=== PATIENT | female | born 1930 | race Caucasian/White ===

== ENCOUNTER 2017-04-22 10:58 | Inpatient (IN) ==
[2017-04-22] MEDS ORDERED: VANCOMYCIN - PHARMACY CONSULT MC ONE (14:07)
--- OUTSIDE RECORDS SUMMARY | 2017-04-22 14:09 | External Medical Summary ---
:1930 Author Organization [facility] Care Team Providers Name Role Phone LINDA KNOWLES, MARLON Primary Care Provider [phone] Summary purpose CCDA Sent to [facility] Chief Complaint and Reason for Visit No authorized Reason for Visit (Admitting Diagnosis) is available for this visit. Problem list No authorized problems tracked for continuity of care are available for this visit. Encounters No authorized problems tracked for encounter diagnoses are available for this visit. Medications No medications recorded for this patient visit Allergies, adverse reactions, alerts Allergen Category Ingredient Status Reaction Severity Onset Levaquin Drug Levaquin Active "Can't remember" Adolescence Levaquin Drug Levaquin Active Unknown Alrgy React Adolescence Levaquin Drug levofloxacin Active "Can't remember" Adolescence Immunizations No immunizations recorded for this patient visit Relevant diagnostic tests and/or laboratory data RESULTS CBC [id number]:55:00 Result Normal Range Units WBC 6.25 4.60-10.20 x 103/uL RBC L 3.23 4.04-6.13 x 106/uL Hemoglobin L 10.2 12.2-18.1 g/dl Hematocrit L 34.6 37.7-53.7 % MCV H 107.1 80.0-97.0 FL MCH H 31.6 27.0-31.2 pg MCHC L 29.5 31.8-35.4 g/dl RDW 14.3 11.6-14.8 % Platelets 210 142-424 x 103/uL MPV L 9.3 9.4-12.4 FL Manual Diff Not Indicated Neutrophil % 60.9 37-80 % Neutrophils 3.81 2.0-6.9 x 103/uL Lymphocyte % 24.5 10-50 % Lymphocytes 1.53 0.6-3.4 x 103/uL Monocyte % 10.9 0-12 % Monocytes 0.68 0.0-1.0 x 103/uL Eosinophil % 3.2 0-7 % Eosinophils 0.20 0-0.7 x 103/uL Basophil % 0.5 0-2 % Basophils 0.03 0.0-0.1 x 103/uL Urinalysis [id number]:55:00 Result Normal Range Units Site Voided Urine Color Yellow Yellow Urine Appearance Clear Clear Urine Glucose Negative Negative Urine Bilirubin Negative Negative Urine Ketones Negative Negative Urine Specific [place] 1.010 1.010-1.020 Urine PH 5.5 5.5-7.5 Urine Protein AB Trace Negative Urine Urobilinogen 0.2 0.2-1.0 Urine Nitrites Negative Negative Urine Blood Negative Negative Urine Leukocytes Negative Negative NO MICROSCOPIS PERFORMED INADEQUATE SPECIMEN Urinalysis [id number]:00 Result Normal Range Units Site Voided Urine Color Yellow Yellow Urine Appearance Clear Clear Urine Glucose Negative Negative Urine Bilirubin Negative Negative Urine Ketones Negative Negative Urine Specific [place] 1.010 1.010-1.020 Urine PH 5.5 5.5-7.5 Urine Protein AB Trace Negative Urine Urobilinogen 0.2 0.2-1.0 Urine Nitrites Negative Negative Urine Blood Negative Negative Urine Leukocytes Negative Negative NO MICROSCOPIS PERFORMED INADEQUATE SPECIMEN History of procedures Procedure Code Code Type Description Date Performed Performing Physician 20991 CPT-4 COMPLETE CBC W/AUTO DIFF 07-31-2015 [facility] WBC 50245 CPT-4 URINALYSIS, AUTO 07-31-2015 MARLON EXPORT W/SCOPE 66751 CPT-4 X-RAY EXAM HIP UNI 2-3 07-31-2015 [facility] VIEWS 41753 CPT-4 X-RAY EXAM OF PELVIS 07-31-2015 [facility] 77299 CPT-4 ROUTINE VENIPUNCTURE 07-31-2015 [facility] Functional status No functional or cognitive status observations are available for this visit. Vital signs No authorized vital signs are available for this visit. Social history No Social History or smoking status observations were recorded for this visit. ( Unknown if ever smoked.) Treatment Plan No treatment plan text is available for this visit. Hospital discharge instructions No discharge instruction text is available for this visit.
--- OUTSIDE RECORDS SUMMARY | 2017-04-22 14:09 | External Medical Summary ---
:1930 Author Organization [facility] Care Team Providers Name Role Phone LINDA KNOWLES, MARLON Primary Care Provider [phone] Summary purpose CCDA Sent to [facility] Chief Complaint and Reason for Visit No authorized Reason for Visit (Admitting Diagnosis) is available for this visit. Problem list No authorized problems tracked for continuity of care are available for this visit. Encounters No authorized problems tracked for encounter diagnoses are available for this visit. Medications No home medications recorded for this patient visit Allergies, adverse reactions, alerts Allergen Category Ingredient Status Reaction Severity Onset Levaquin Drug Levaquin Active "Can't remember" Adolescence Levaquin Drug Levaquin Active Unknown Alrgy React Adolescence Levaquin Drug levofloxacin Active "Can't remember" Adolescence Immunizations No immunizations recorded for this patient visit Relevant diagnostic tests and/or laboratory data RESULTS [facility] [id number]:00 Result Normal Range Units Adenovirus Not Detected Not Detected Result Amended on 2015-02-09 at 12:24:18. Previous status was FR. Adeno2 Not Detected Not Detected Result Amended on 2015-02-09 at 12:24:18. Previous status was FR. Coronavirus 229E Not Detected Not Detected Result Amended on 2015-02-09 at 12:24:19. Previous status was FR. Coronavirus HKU1 Not Detected Not Detected Result Amended on 2015-02-09 at 12:24:19. Previous status was FR. Coronavirus NL63 Not Detected Not Detected Result Amended on 2015-02-09 at 12:24:19. Previous status was FR. Coronavirus OC43 Not Detected Not Detected Result Amended on 2015-02-09 at 12:24:19. Previous status was FR. Human Metapneumovir. Not Detected Not Detected Result Amended on 2015-02-09 at 12:24:19. Previous status was FR. Entero1 Not Detected Not Detected Result Amended on 2015-02-09 at 12:24:19. Previous status was FR. Entero2 Not Detected Not Detected Result Amended on 2015-02-09 at 12:24:19. Previous status was FR. Human Rhinovirus 1 Not Detected Not Detected Result Amended on 2015-02-09 at 12:24:19. Previous status was FR. Human Rhinovirus 2 Not Detected Not Detected Result Amended on 2015-02-09 at 12:24:19. Previous status was FR. Human Rhinovirus 3 Not Detected Not Detected Result Amended on 2015-02-09 at 12:24:19. Previous status was FR. Human Rhinovirus 4 Not Detected Not Detected Result Amended on 2015-02-09 at 12:24:19. Previous status was FR. DdmD-A4-1529 Not Detected Not Detected Result Amended on 2015-02-09 at 12:24:19. Previous status was FR. FluA-H1-freeman Not Detected Not Detected Result Amended on 2015-02-09 at 12:24:19. Previous status was FR. FluA-H3 Not Detected Not Detected Result Amended on 2015-02-09 at 12:24:19. Previous status was FR. FluA-pan1 Not Detected Not Detected Result Amended on 2015-02-09 at 12:24:19. Previous status was FR. FluA-pan2 Not Detected Not Detected Result Amended on 2015-02-09 at 12:24:19. Previous status was FR. Influenza B Not Detected Not Detected Result Amended on 2015-02-09 at 12:24:19. Previous status was FR. Parainfluenza Virus 1 Not Detected Not Detected Result Amended on 2015-02-09 at 12:24:19. Previous status was FR. Parainfluenza Virus 2 Not Detected Not Detected Result Amended on 2015-02-09 at 12:24:19. Previous status was FR. Parainfluenza Virus 3 Not Detected Not Detected Result Amended on 2015-02-09 at 12:24:19. Previous status was FR. Parainfluenza Virus 4 Not Detected Not Detected Result Amended on 2015-02-09 at 12:24:19. Previous status was FR. Respiratory Syncytial Vir Not Detected Not Detected Result Amended on 2015-02-09 at 12:24:19. Previous status was FR. Bordetella pertussis Not Detected Not Detected Result Amended on 2015-02-09 at 12:24:19. Previous status was FR. Chlamydophila pnemon Not Detected Not Detected Result Amended on 2015-02-09 at 12:24:19. Previous status was FR. Mycoplasma pneumoni Not Detected Not Detected Result Amended on 2015-02-09 at 12:24:19. Previous status was FR. Gram Positive Bacteria [id number]:49:00 Result Normal Range Units Entero1 Not Detected Not Detected Result Amended on 2015-02-09 at 12:24:19. Previous status was FR. History of procedures Procedure Code Code Type Description Date Performed Performing Physician 06911 CPT-4 DETECT AGENT NOS DNA 02-09-2015 [facility] [place] 05771 CPT-4 RESP VIRUS 04-0602-09-2015 [facility] TARGETS 71482 CPT-4 CHYLMD PNEUM DNA AMP 02-09-2015 [facility] PROBE 99337 CPT-4 M.PNEUMON DNA AMP 02-09-2015 [facility] PROBE 57904 CPT-4 SMEAR GRAM STAIN 02-09-2015 [facility] 20908 CPT-4 CULTURE OTHR SPECIMN 02-09-2015 [facility] AEROBIC Functional status No functional or cognitive status [...]
--- OUTSIDE RECORDS SUMMARY | 2017-04-22 14:09 | External Medical Summary ---
:1930 Author Organization [facility] Care Team Providers Name Role Phone LINDA KNOWLES, MARLON Primary Care Provider [phone] Summary purpose CCDA Sent to [facility] Chief Complaint and Reason for Visit No authorized Reason for Visit (Admitting Diagnosis) is available for this visit. Problem list No authorized problems tracked for continuity of care are available for this visit. Encounters No authorized problems tracked for encounter diagnoses are available for this visit. Medications Home Medications Medication Directions Started Status Source amlodipine 10 mg Tab 1 tablet Oral -Daily Current Aspirin Low Dose 81 mg Tab, 1 tablet Oral -Daily Current Delayed Release with evening meal levothyroxine 150 mcg Tab 1 tablet Oral -Daily Current metoprolol tartrate 50 mg Tab 1 tablet Oral 2 times per day Current multivitamin Tab 1 tablet Oral -Daily Current with evening meal pantoprazole 40 mg tablet,delayed 1 tablet oral At bed time Current release losartan 50 mg tablet 1 tablet oral -Daily Current niacin 500 mg tablet 1 tablet oral -Daily Current with evening meal after vitamin and aspirin oxybutynin chloride ER 5 mg 1 tablet oral -Daily Current tablet,extended release 24 hr venlafaxine 37.5 mg tablet 1 tablet oral -Daily Current Celebrex 200 mg capsule 1 tablet oral -Daily Current metFORMIN 500 mg tablet 1 tablet oral 2 times per day Current gabapentin 300 mg tablet 1 tablet oral 2 times per day Current ciprofloxacin 500 mg tablet 1 capsule oral 2 times per day for ANTIBIOTIC Current [facility] Symbicort 160 mcg-4.5 2 puff inhl 2 times per day Current mcg/actuation HFA aerosol inhaler Mucinex 600 mg tablet,extended 1 tablet oral 2 times per day Current release bi-layer DuoNeb 0.5 mg-3 mg(2.5 mg base)/3 1 inhalation inhl 4 times Current mL solution for nebulization daily Allergies, adverse reactions, alerts Allergen Category Ingredient Status Reaction Severity Onset Levaquin Drug Levaquin Active "Can't remember" Adolescence Levaquin Drug Levaquin Active Unknown Alrgy React Adolescence Levaquin Drug levofloxacin Active "Can't remember" Adolescence Immunizations No immunizations recorded for this patient visit Relevant diagnostic tests and/or laboratory data No authorized results are available for this patient visit History of procedures Procedure Code Code Type Description Date Performed Performing Physician 18174 CPT-4 EXC FACE-MM B9+MARIBEL 02-16-2015 MAR[place] 0.6-1 [place] [address] CPT-4 TISSUE EXAM BY 02-16-2015 MARLON LOPEZ PATHOLOGIST 57156 CPT-4 SMEAR GRAM STAIN 02-16-2015 MARLON LOPEZ 45534 CPT-4 CULTURE OTHR SPECIMN 02-16-2015 MARLON LOPEZ AEROBIC A9270 CPT-4 NON-COVERED ITEM OR 02-16-2015 MARLON LOPEZ SERVICE Functional status No functional or cognitive status observations are available for this visit. Vital signs Type Value Date Respirations 20 61-85-725510:24 Pulse 70 :24 O2 Saturation 98% 87-68-900813:55 Systolic Blood Press 119mm/HG 61-38-092621:24 Diastolic Blood Pres 63mm/HG 09-31-835455:24 Temperature (Fahr) 97.6Degrees 09-33-615922:55 Social history No Social History or smoking status observations were recorded for this visit. ( Unknown if ever smoked.) Treatment Plan Treatment Plan at Di follow wound care and follow up instructions on discharge instruction sheet Hospital discharge instructions Diagnosis excision of skin lesion from right side of face- sent to pathology Diet as tolerated Activity Level as tolerated Follow up with Dr Lopez Appointment Date and @2:30PM Wound Care keep incision clean and dry- do not scrub over sutures, use neosporin to incision daily, cool pack to incision intermittently today, watch for signs of infection such as apmafao-[id number] drainage and notify Dr of any problems
--- OUTSIDE RECORDS SUMMARY | 2017-04-22 14:09 | External Medical Summary ---
:1930 Author Organization [facility] Care Team Providers Name Role Phone LINDA KNOWLES, MARLON Primary Care Provider [phone] Summary purpose CCDA Sent to [facility] Chief Complaint and Reason for Visit No [...] diagnostic tests and/or laboratory data RESULTS CBC [id number]:37:00 Result Normal Range Units WBC 8.21 4.60-10.20 x 103/uL RBC L 3.44 4.04-6.13 x 106/uL Hemoglobin L 10.9 12.2-18.1 g/dl Hematocrit L 35.7 37.7-53.7 % MCV H 103.8 80.0-97.0 FL MCH H 31.7 27.0-31.2 pg MCHC L 30.5 31.8-35.4 g/dl RDW 13.4 11.6-14.8 % Platelets 216 142-424 x 103/uL MPV 9.6 9.4-12.4 FL Manual Diff Not Indicated Neutrophil % 60.9 37-80 % Neutrophils 4.99 2.0-6.9 x 103/uL Lymphocyte % 26.9 10-50 % Lymphocytes 2.21 0.6-3.4 x 103/uL Monocyte % 10.1 0-12 % Monocytes 0.83 0.0-1.0 x 103/uL Eosinophil % 1.9 0-7 % Eosinophils 0.16 0-0.7 x 103/uL Basophil % 0.2 0-2 % Basophils 0.02 0.0-0.1 x 103/uL Chemistry Group [id number]:37:00 Result Normal Range Units Hemoglobin A1C 5.1 < 6.0 % BNP H 100.4 <=100 pg/ml Magnesium 2.4 1.6-2.8 mg/dl Phosphorus 3.2 2.3-4.7 mg/dl TSH 0.56 0.35-4.94 uIU/mL 34-91-159723:06:00 Result Normal Range Units Glucose H 119 70-99 mg/dl BUN H 41 7-26 mg/dl Creatinine H 1.5 0.6-1.3 mg/dl Sodium 142 136-145 mmol/L Potassium 4.9 3.5-5.1 mmol/L Chloride 98 98-107 mmol/L CO2 H 30 22-29 mmol/L BUN/Creatinine Ratio H 27 7-25 Ratio Calcium 10.1 8.4-10.2 mg/dl Protein Total L 6.1 6.4-8.3 g/dl Albumin 3.9 3.5-5.0 g/dl A/G Ratio 1.8 1.2-2.2 Ratio AST 20 5-34 U/L ALT 9 0-55 U/L ALP 101 40-150 U/L Bilirubin Total 0.4 0.2-1.2 mg/dl Osmolality H 285 261-280 mOsm/kg Globulin L 2.2 2.4-3.5 g/dl History of procedures Procedure Code Code Type Description Date Performed Performing Physician 90911 CPT-4 ASSAY OF NATRIURETIC 01-25-2015 [facility] PEPTIDE 90167 CPT-4 COMPLETE CBC W/AUTO DIFF 01-25-2015 [facility] WBC 52301 CPT-4 ASSAY THYROID STIM 01-25-2015 [facility] HORMONE 89987 CPT-4 ASSAY OF MAGNESIUM 01-25-2015 [facility] 20849 CPT-4 ASSAY OF PHOSPHORUS 01-25-2015 [facility] 43217 CPT-4 GLYCOSYLATED HEMOGLOBIN 01-25-2015 [facility] TEST 04310 CPT-4 ROUTINE VENIPUNCTURE 01-25-2015 [facility] 35351 CPT-4 COMPREHEN METABOLIC 01-25-2015 [facility] PANEL Functional status No functional or cognitive status [...]
--- OUTSIDE RECORDS SUMMARY | 2017-04-22 14:09 | External Medical Summary ---
:1930 Author Organization [facility] Care Team Providers Name Role Phone LINDA KNOWLES, MARLON Primary Care Provider [phone] MARLON LOPEZ MD Primary Care Provider [phone] Summary purpose CCDA Sent to [facility] Chief Complaint and Reason for Visit Admit Diagnosis 1 C-PAP NOT WORKING Problem list No authorized problems tracked for continuity of care are available for this visit. Encounters No authorized problems tracked for encounter diagnoses are available for this visit. Medications Discharge Medications Status Medication Directions Current aspirin 325 mg tablet 325 miligram(s) oral ONE TIME A DAY Current atorvastatin 40 mg tablet 40 miligram(s) oral BEDTIME Current Lasix 40 mg tablet 40 miligram(s) oral oral NEEDED for swelling every other day Current levothyroxine 150 mcg tablet 150 microgram(s) oral ONE TIME A DAY Current metFORMIN 500 mg tablet 750 miligram(s) oral ONE TIME A DAY Current meTOPROLOL tartrate 50 mg tablet 50 miligram(s) oral TWO TIMES A DAY Current multivitamin tablet 1 tab(s) oral ONE TIME A DAY Current niacin 500 mg tablet 500 miligram(s) oral BEDTIME 1 or 2 daily Current oxybutynin chloride 5 mg tablet 5 miligram(s) oral ONE TIME A DAY Current pantoprazole 40 mg tablet,delayed 40 miligram(s) oral BEDTIME release Current Plavix 75 mg tablet 75 miligram(s) oral ONE TIME A DAY Current Symbicort 160 mcg-4.5 mcg/actuation HFA 2 puff(s) inhalation TWO TIMES A DAY aerosol inhaler Current venlafaxine 37.5 mg tablet 37.5 miligram(s) oral ONE TIME A DAY Allergies, adverse reactions, alerts Allergen Category Ingredient Status Reaction Severity Onset Levaquin Drug Levaquin Active "Can't remember" Adolescence Levaquin Drug Levaquin Active Unknown Alrgy React Adolescence Levaquin Drug levofloxacin Active "Can't remember" Adolescence Immunizations No immunizations recorded for this patient visit Relevant diagnostic tests and/or laboratory data RESULTS CBC :50:00 Result Normal Range Units WBC 7.43 4.60-10.20 x 103/uL RBC L 3.12 4.04-6.13 x 106/uL Hemoglobin L 10.0 12.2-18.1 g/dl Hematocrit L 32.8 37.7-53.7 % MCV H 105.1 80.0-97.0 FL MCH H 32.1 27.0-31.2 pg MCHC L 30.5 31.8-35.4 g/dl RDW 13.8 11.6-14.8 % Platelets 171 142-424 x 103/uL MPV 10.2 9.4-12.4 FL Manual Diff Not Indicated Neutrophil % 69.9 37-80 % Neutrophils 5.20 2.0-6.9 x 103/uL Lymphocyte % 19.7 10-50 % Lymphocytes 1.46 0.6-3.4 x 103/uL Monocyte % 8.1 0-12 % Monocytes 0.60 0.0-1.0 x 103/uL Eosinophil % 1.9 0-7 % Eosinophils 0.14 0-0.7 x 103/uL Basophil % 0.4 0-2 % Basophils 0.03 0.0-0.1 x 103/uL Chemistry Group :50:00 Result Normal Range Units Glucose H 161 70-99 mg/dl BUN H 32 7-26 mg/dl Creatinine 1.3 0.6-1.3 mg/dl Sodium 142 136-145 mmol/L Potassium 4.3 3.5-5.1 mmol/L Chloride 100 98-107 mmol/L CO2 H 33 22-29 mmol/L BUN/Creatinine Ratio 25 7-25 Ratio Calcium H 10.4 8.4-10.2 mg/dl Protein Total L 5.9 6.4-8.3 g/dl Albumin 3.6 3.5-5.0 g/dl A/G Ratio 1.6 1.2-2.2 Ratio AST 20 5-34 U/L ALT 11 0-55 U/L ALP 80 40-150 U/L Bilirubin Total 0.6 0.2-1.2 mg/dl Osmolality H 284 261-280 mOsm/kg Globulin L 2.3 2.4-3.5 g/dl BNP H 164.8 <=100 pg/ml History of procedures Procedure Code Code Type Description Date Performed Performing Physician 27716 CPT-4 EMERGENCY DEPT VISIT 10-23-2015 [facility] [place] 91814 CPT-4 COMPLETE CBC W/AUTO DIFF 10-23-2015 [facility] [place] WBC 68418 CPT-4 COMPREHEN METABOLIC 10-23-2015 [facility] [place] PANEL 11996 CPT-4 NATRIURETIC PEPTIDE 10-23-2015 [facility] [place] A9270 CPT-4 NON-COVERED ITEM OR 10-23-2015 [facility] [place] SERVICE 76742 CPT-4 ROUTINE VENIPUNCTURE 10-23-2015 [facility] [place] Functional status Cognitive Status Finding Observation Time Level of Consciousne Alert 88-45-967702:05 Oriented to Person Yes 78-86-254617:[address] Yes 65-55-174018:05 Oriented to Time Yes 64-56-194026:05 Vital signs Type Value Date Respirations 22 64-91-418902:35 Pulse 67 39-26-793096:35 O2 Saturation 99% 11-62-201206:35 Systolic Blood Press 165mm/HG 79-16-460960:35 Diastolic Blood Pres 91mm/HG 28-61-726130:35 Temperature (Fahr) 98.1Degrees :35 Social history Type Value Smoking Status UNKNOWN IF EVER SMOKED Treatment Plan No treatment plan text is available for this visit. Hospital discharge instructions Diagnosis lower extremity swelling Diet as tolerated. Avoid salt Activity Level as tolerated. Elevate lower extremities. Wear the shell wraps throughout the day and take them off this evening. Med Dispensed by [facility] Lasix 40mg by mouth was given to you in the ER this morning. Follow up with Dr. Lopez Appointment Date and Thursday
--- OUTSIDE RECORDS SUMMARY | 2017-04-22 14:09 | External Medical Summary ---
:1930 Author Organization [facility] Care Team Providers Name Role Phone LINDA KNOWLES, MARLON Primary Care Provider [phone] Summary purpose CCDA Sent to [facility] Chief Complaint and Reason for Visit No [...] Code Type Description Date Performed Performing Physician 54902 CPT-4 TTE W/DOPPLER COMPLETE 02-01-2015 MARLON MCKEON 78788 CPT-4 CHEST X-RAY 2VW 02-01-2015 MARLON MCKEON FRONTAL&LATL Functional status No functional or cognitive status [...]
--- OUTSIDE RECORDS SUMMARY | 2017-04-22 14:09 | External Medical Summary ---
:1930 Author Organization [facility] Care Team Providers Name Role Phone LINDA KNOWLES, MARLON Primary Care Provider [phone] Summary purpose CCDA Sent to [facility] Chief Complaint and Reason for Visit [...] Code Type Description Date Performed Performing Physician 75278 CPT-4 X-RAY EXAM OF THORACIC 07-13-2015 [facility] SPINE 43579 CPT-4 X-RAY EXAM OF LOWER 07-13-2015 [facility] SPINE Functional status No functional or cognitive status [...]
--- OUTSIDE RECORDS SUMMARY | 2017-04-22 14:09 | External Medical Summary ---
:1930 Author Organization [facility] Care Team Providers Name Role Phone MARLON MCKEON MD Primary Care Provider [phone] Summary purpose CCDA Sent to [facility] Chief Complaint and Reason for [...] Code Type Description Date Performed Performing Physician 98578 CPT-4 ELECTROCARDIOGRAM, 12-30-2016 [facility] [place] Functional status No functional or cognitive status [...]
--- OUTSIDE RECORDS SUMMARY | 2017-04-22 14:09 | External Medical Summary ---
:1930 Author Organization [facility] Care Team Providers Name Role Phone LINDA KNOWLES, MARLON Primary Care Provider [phone] Summary purpose CCDA Sent to [facility] Chief Complaint and Reason for Visit Admit Diagnosis 1 HYPERTENSION NOS Problem list No authorized problems tracked for [...] diagnostic tests and/or laboratory data RESULTS CBC [id number]:12:00 Result Normal Range Units WBC 7.96 4.60-10.20 x 103/uL RBC L 3.46 4.04-6.13 x 106/uL Hemoglobin L 11.1 12.2-18.1 g/dl Hematocrit L 35.7 37.7-53.7 % MCV H 103.2 80.0-97.0 FL MCH H 32.1 27.0-31.2 pg MCHC L 31.1 31.8-35.4 g/dl RDW 13.2 11.6-14.8 % Platelets 204 142-424 x 103/uL MPV 9.4 9.4-12.4 FL Manual Diff Not Indicated Neutrophil % 63.8 37-80 % Neutrophils 5.08 2.0-6.9 x 103/uL Lymphocyte % 24.9 10-50 % Lymphocytes 1.98 0.6-3.4 x 103/uL Monocyte % 8.2 0-12 % Monocytes 0.65 0.0-1.0 x 103/uL Eosinophil % 2.6 0-7 % Eosinophils 0.21 0-0.7 x 103/uL Basophil % 0.5 0-2 % Basophils 0.04 0.0-0.1 x 103/uL Chemistry Group [id number]:12:00 Result Normal Range Units Glucose H 108 70-99 mg/dl BUN H 32 7-26 mg/dl Creatinine H 1.3 0.57-1.25 mg/dl Sodium 140 136-145 mmol/L Potassium 4.8 3.5-5.1 mmol/L Chloride 100 98-107 mmol/L CO2 H 31 22-29 mmol/L BUN/Creatinine Ratio 24.2 7-25 Ratio Calcium H 10.4 8.4-10.2 mg/dl Protein Total L 6.3 6.4-8.3 g/dl Albumin 3.7 3.5-5.0 g/dl A/G Ratio 1.4 1.2-2.2 Ratio AST 16 5-34 U/L ALT 13 0-55 U/L ALP 101 40-150 U/L Bilirubin Total 0.4 0.2-1.2 mg/dl Osmolality 277.8 261-280 mOsm/kg Globulin 2.6 2.4-3.5 g/dl History of procedures Procedure Code Code Type Description Date Performed Performing Physician 63528 CPT-4 COMPLETE CBC W/AUTO DIFF 11-30-2014 MARLON [place] WBC 59622 CPT-4 COMPREHEN METABOLIC 11-30-2014 MARLON [place] PANEL 96309 CPT-4 ROUTINE VENIPUNCTURE 11-30-2014 MARLON [place] Functional status No functional or cognitive status [...]
--- OUTSIDE RECORDS SUMMARY | 2017-04-22 14:09 | External Medical Summary ---
:1930 Author Organization [facility] Care Team Providers Name Role Phone LINDA KNOWLES, MARLON Primary Care Provider [phone] Summary purpose CCDA Sent to [facility] Chief Complaint and Reason for Visit [...] Code Type Description Date Performed Performing Physician 93552 CPT-4 ASSAY THYROID STIM 01-13-2017 MARLON MCKEON HORMONE 45547 CPT-4 COMPREHEN METABOLIC 01-13-2017 MARLON MCKEON PANEL 34918 CPT-4 ASSAY OF MAGNESIUM 01-13-2017 MARLON MCKEON 26052 CPT-4 ASSAY OF PHOSPHORUS 01-13-2017 MARLON MCKEON 31576 CPT-4 ASSAY OF VITAMIN D 01-13-2017 MARLON MCKEON 06004 CPT-4 GLYCOSYLATED HEMOGLOBIN 01-13-2017 MARLON MCKEON TEST 14446 CPT-4 COMPLETE CBC W/AUTO DIFF 01-13-2017 MARLON MCKEON WBC Functional status No functional or cognitive status [...]
--- OUTSIDE RECORDS SUMMARY | 2017-04-22 14:09 | External Medical Summary ---
:1930 Author Organization [facility] Care Team Providers Name Role Phone LINDA KNOWLES, MARLON Primary Care Provider [phone] Summary purpose CCDA Sent to [facility] Chief Complaint and Reason for Visit No [...] Code Type Description Date Performed Performing Physician 62272 CPT-4 BREATHING CAPACITY 10-24-2015 MARLON MCKEON TEST 49760 CPT-4 PULM FUNCTION TEST BY 10-24-2015 MARLON MCKEON GAS 15040 CPT-4 C02/MEMBANE DIFFUSE 10-24-2015 MARLON MCKEON CAPACITY Functional status No functional or cognitive status [...]
--- OUTSIDE RECORDS SUMMARY | 2017-04-22 14:10 | External Medical Summary ---
:1930 Author Organization [facility] Care Team Providers Name Role Phone LINDA KNOWLES, MARLON Primary Care Provider [phone] Summary purpose CCDA Sent to [facility] Chief Complaint and Reason for Visit No [...] Relevant diagnostic tests and/or laboratory data RESULTS Chemistry Group [id number]:06:00 Result Normal Range Units Ferritin 75.04 25-300 ng/ml Iron 55 50-175 ug/dl TIBC L 239 280-380 ug/dl % Saturation 23 15-50 % Transferrin 191 174-382 mg/dl Reference Lab Group [id number]:06:00 Result Normal Range Units Retic Count Auto 2.1 % Retic Absolute 94562 [id number] cells/uL TEST PERFORMED AT: [address] [address] [place] [address] KIM ORTIZ DO,MPH Special Chemistry [id number]:06:00 Result Normal Range Units Ferritin 75.04 25-300 ng/ml Vitamin B12 H 6797 707-2693 pg/ml Folate 19.4 1.5-24.0 ng/ml History of procedures Procedure Code Code Type Description Date Performed Performing Physician 29866 CPT-4 ASSAY OF IRON 08-02-2015 MARLON MCKEON 54024 CPT-4 ASSAY OF FERRITIN 08-02-2015 MARLON MCKEON 04474 CPT-4 VITAMIN B-12 08-02-2015 MARLON MCKEON 68199 CPT-4 BLOOD FOLIC ACID SERUM 08-02-2015 MARLON MONROE 76931 CPT-4 ASSAY OF TRANSFERRIN 08-02-2015 [facility] 89394 CPT-4 MANUAL RETICULOCYTE 08-02-2015 [facility] COUNT 29482 CPT-4 ROUTINE VENIPUNCTURE 08-02-2015 [facility] Functional status No functional or cognitive [...]
--- OUTSIDE RECORDS SUMMARY | 2017-04-22 14:10 | External Medical Summary ---
:1930 Author Organization [facility] Care Team Providers Name Role Phone LINDA KNOWLES, MARLON Primary Care Provider [phone] Summary purpose CCDA Sent to [facility] Chief Complaint and Reason for Visit [...] Code Type Description Date Performed Performing Physician 23737 CPT-4 CT SOFT TISSUE NECK 06-14-2015 CORRIE ROWLAND W/DYE Q9967 CPT-4 LOCM 300-399MG/ML 06-14-2015 CORRIE ROWLAND IODINE,1ML J7050 CPT-4 NS SOLUTION 250 CC 06-14-2015 CORRIE ROWLAND INFUSION Functional status No functional or cognitive status [...]
--- OUTSIDE RECORDS SUMMARY | 2017-04-22 14:10 | External Medical Summary ---
:1930 Author Organization [facility] Care Team Providers Name Role Phone LINDA KNOWLES, MARLON Primary Care Provider [phone] MARLON MCKEON MD Primary Care Provider [phone] Summary purpose CCDA Sent to [facility] Chief Complaint and Reason for Visit No [...] Code Type Description Date Performed Performing Physician 84465 CPT-4 EMERGENCY DEPT VISIT 11-01-2015 CORRIE ROWLAND Functional status No functional or cognitive status [...]
--- OUTSIDE RECORDS SUMMARY | 2017-04-22 14:10 | External Medical Summary ---
:1930 Author Organization [facility] Care Team Providers Name Role Phone LINDA KNOWLES, MARLON Primary Care Provider [phone] Summary purpose CCDA Sent to [facility] Chief Complaint and Reason [...] diagnostic tests and/or laboratory data RESULTS CBC [id number]:06:00 Result Normal Range Units WBC 8.50 4.60-10.20 x 103/uL RBC L 3.42 4.04-6.13 x 106/uL Hemoglobin L 11.0 12.2-18.1 g/dl Hematocrit L 35.9 37.7-53.7 % MCV H 105.0 80.0-97.0 FL MCH H 32.2 27.0-31.2 pg MCHC L 30.6 31.8-35.4 g/dl RDW 13.3 11.6-14.8 % Platelets 218 142-424 x 103/uL MPV 9.7 9.4-12.4 FL Manual Diff Not Indicated Neutrophil % 64.0 37-80 % Neutrophils 5.44 2.0-6.9 x 103/uL Lymphocyte % 25.4 10-50 % Lymphocytes 2.16 0.6-3.4 x 103/uL Monocyte % 8.1 0-12 % Monocytes 0.69 0.0-1.0 x 103/uL Eosinophil % 1.9 0-7 % Eosinophils 0.16 0-0.7 x 103/uL Basophil % 0.6 0-2 % Basophils 0.05 0.0-0.1 x 103/uL Chemistry Group [id number]:06:00 Result Normal Range Units Glucose H 115 70-99 mg/dl BUN H 34 7-26 mg/dl Creatinine 1.3 0.6-1.3 mg/dl Sodium 140 136-145 mmol/L Potassium 5.0 3.5-5.1 mmol/L Chloride 100 98-107 mmol/L CO2 H 31 22-29 mmol/L BUN/Creatinine Ratio H 26 7-25 Ratio Calcium H 10.3 8.4-10.2 mg/dl Protein Total L 6.3 6.4-8.3 g/dl Albumin 3.6 3.5-5.0 g/dl A/G Ratio 1.3 1.2-2.2 Ratio AST 20 5-34 U/L ALT 12 0-55 U/L ALP 93 40-150 U/L Bilirubin Total 0.4 0.2-1.2 mg/dl Osmolality 279 261-280 mOsm/kg Globulin 2.7 2.4-3.5 g/dl Hemoglobin A1C 5.3 < 6.0 % Magnesium 2.1 1.6-2.8 mg/dl Phosphorus 3.1 2.3-4.7 mg/dl TSH 0.53 0.35-4.94 uIU/mL History of procedures Procedure Code Code Type Description Date Performed Performing Physician 39815 CPT-4 COMPLETE CBC W/AUTO DIFF 06-06-2015 [facility] WBC 41287 CPT-4 COMPREHEN METABOLIC 06-06-2015 [facility] PANEL 44355 CPT-4 GLYCOSYLATED HEMOGLOBIN 06-06-2015 [facility] TEST 11510 CPT-4 ASSAY THYROID STIM 06-06-2015 [facility] HORMONE 00515 CPT-4 ASSAY OF MAGNESIUM 06-06-2015 [facility] 57808 CPT-4 ASSAY OF PHOSPHORUS 06-06-2015 [facility] 30923 CPT-4 CHEST X-RAY 06-06-2015 [facility] 60979 CPT-4 ROUTINE VENIPUNCTURE 06-06-2015 [facility] Functional status No functional or cognitive status [...]
--- OUTSIDE RECORDS SUMMARY | 2017-04-22 14:10 | External Medical Summary ---
:1930 Author Organization [facility] Care Team Providers Name Role Phone LINDA KNOWLES, MARLON Primary Care Provider [phone] Summary purpose CCDA Sent to [facility] Chief Complaint and Reason for Visit Admit Diagnosis 1 DM2/NOS UNCOMP NSU Problem list No authorized problems tracked for [...] diagnostic tests and/or laboratory data RESULTS CBC [id number]:52:00 Result Normal Range Units WBC 7.58 4.60-10.20 x 103/uL RBC L 3.33 4.04-6.13 x 106/uL Hemoglobin L 10.6 12.2-18.1 g/dl Hematocrit L 34.5 37.7-53.7 % MCV H 103.6 80.0-97.0 FL MCH H 31.8 27.0-31.2 pg MCHC L 30.7 31.8-35.4 g/dl RDW 13.0 11.6-14.8 % Platelets 219 142-424 x 103/uL MPV 9.7 9.4-12.4 FL Manual Diff Not Indicated Neutrophil % 60.4 37-80 % Neutrophils 4.58 2.0-6.9 x 103/uL Lymphocyte % 26.3 10-50 % Lymphocytes 1.99 0.6-3.4 x 103/uL Monocyte % 10.3 0-12 % Monocytes 0.78 0.0-1.0 x 103/uL Eosinophil % 2.6 0-7 % Eosinophils 0.20 0-0.7 x 103/uL Basophil % 0.4 0-2 % Basophils 0.03 0.0-0.1 x 103/uL Chemistry Group [id number]:52:00 Result Normal Range Units Glucose 89 65-110 mg/dl BUN H 38 7-21 mg/dl Creatinine 1.2 0.7-1.5 mg/dl Sodium 139 137-145 mmol/L Potassium H 5.2 3.6-5.0 mmol/L Chloride 99 98-107 mmol/L CO2 H 31 22-30 mmol/L BUN/Creatinine Ratio H 30.8 7-25 Ratio Calcium 9.9 8.4-10.2 mg/dl Protein Total L 6.2 6.3-8.2 g/dl Albumin 3.7 3.5-5.0 g/dl A/G Ratio 1.5 1.2-2.2 Ratio AST 31 15-46 U/L ALT 29 7-56 U/L ALP 97 38-126 U/L Bilirubin Total 0.4 0.2-1.3 mg/dl Osmolality 277 261-280 mOsm/kg Globulin 2.5 2.4-3.5 g/dL Triglycerides H 170 35-160 mg/dl Cholesterol L 100 130-200 mg/dl HDL 40.9 35-100 mg/dl LDL 25 0-130 mg/dL VLDL H 34 0-21 mg/dL TSH 0.67 0.35-4.94 uIU/mL History of procedures Procedure Code Code Type Description Date Performed Performing Physician 03354 CPT-4 COMPLETE CBC W/AUTO DIFF 10-31-2014 [facility] WBC 47013 CPT-4 COMPREHEN METABOLIC 10-31-2014 [facility] PANEL 35281 CPT-4 LIPID PANEL 10-31-2014 [facility] 94517 CPT-4 ASSAY THYROID STIM 10-31-2014 [facility] HORMONE 97553 CPT-4 ROUTINE VENIPUNCTURE 10-31-2014 [facility] Functional status No functional or [...]
--- OUTSIDE RECORDS SUMMARY | 2017-04-22 14:10 | External Medical Summary ---
:1930 Author Organization [facility] Care Team Providers Name Role Phone LINDA KNOWLES, MARLON Primary Care Provider [phone] Summary purpose [facility] Code Type Description Date Performed Performing Physician 95734 CPT-4 EMERGENCY DEPT VISIT 10-23-2015 MARLON MCKEON Functional status No functional or cognitive status [...]
--- OUTSIDE RECORDS SUMMARY | 2017-04-22 14:10 | External Medical Summary ---
:1930 Author Organization [facility] Care Team Providers Name Role Phone LINDA KNOWLES, MARLON Primary Care Provider [phone] Summary purpose CCDA Sent to [facility] Chief Complaint and Reason for Visit [...] Code Type Description Date Performed Performing Physician 57125 CPT-4 BONE IMAGING, LIMITED 07-23-2015 CORRIE JANETT AREA A9503 CPT-4 TC99M MEDRONATE 07-23-2015 CORRIE ROWLAND Functional status No functional or [...]
--- OUTSIDE RECORDS SUMMARY | 2017-04-22 14:10 | External Medical Summary ---
:1930 Author Organization [facility] Care Team Providers Name Role Phone LINDA KNOWLES, MARLON Primary Care Provider [phone] Summary purpose CCDA Sent to [facility] Chief Complaint and Reason for Visit [...] Code Type Description Date Performed Performing Physician 57793 CPT-4 EXTRACRANIAL STUDY 06-07-2015 MARLON MCKEON 70335 CPT-4 US EXAM OF HEAD AND 06-07-2015 MARLON MCKEON NECK Functional status No functional or cognitive status [...]
--- OUTSIDE RECORDS SUMMARY | 2017-04-22 14:10 | External Medical Summary ---
:1930 Author Organization [facility] Care Team Providers Name Role Phone LINDA KNOWLES, MARLON Primary Care Provider [phone] Summary purpose CCDA Sent to [facility] Chief Complaint and Reason for [...] diagnostic tests and/or laboratory data RESULTS CBC [id number]:30:00 Result Normal Range Units WBC 7.63 4.60-10.20 x 103/uL RBC L 3.31 4.04-6.13 x 106/uL Hemoglobin L 10.5 12.2-18.1 g/dl Hematocrit L 35.6 37.7-53.7 % MCV H 107.6 80.0-97.0 FL MCH H 31.7 27.0-31.2 pg MCHC L 29.5 31.8-35.4 g/dl RDW 14.0 11.6-14.8 % Platelets 198 142-424 x 103/uL MPV 10.1 9.4-12.4 FL Manual Diff Not Indicated Neutrophil % 61.5 37-80 % Neutrophils 4.69 2.0-6.9 x 103/uL Lymphocyte % 23.3 10-50 % Lymphocytes 1.78 0.6-3.4 x 103/uL Monocyte % 11.5 0-12 % Monocytes 0.88 0.0-1.0 x 103/uL Eosinophil % 3.3 0-7 % Eosinophils 0.25 0-0.7 x 103/uL Basophil % 0.4 0-2 % Basophils 0.03 0.0-0.1 x 103/uL Chemistry Group [id number]:30:00 Result Normal Range Units Glucose H 106 70-99 mg/dl BUN H 32 7-26 mg/dl Creatinine 1.2 0.6-1.3 mg/dl Sodium 144 136-145 mmol/L Potassium 4.8 3.5-5.1 mmol/L Chloride 101 98-107 mmol/L CO2 H 34 22-29 mmol/L BUN/Creatinine Ratio H 27 7-25 Ratio Calcium 9.9 8.4-10.2 mg/dl Protein Total L 5.8 6.4-8.3 g/dl Albumin 3.7 3.5-5.0 g/dl A/G Ratio 1.8 1.2-2.2 Ratio AST 22 5-34 U/L ALT 18 0-55 U/L ALP 91 40-150 U/L Bilirubin Total 0.4 0.2-1.2 mg/dl Osmolality H 285 261-280 mOsm/kg Globulin L 2.1 2.4-3.5 g/dl Hemoglobin A1C 5.5 < 6.0 % BNP H 100.3 <=100 pg/ml TSH 1.37 0.35-4.94 uIU/mL History of procedures Procedure Code Code Type Description Date Performed Performing Physician 05310 CPT-4 COMPLETE CBC W/AUTO DIFF 10-05-2015 [facility] WBC 00495 CPT-4 NATRIURETIC PEPTIDE 10-05-2015 [facility] 40518 CPT-4 COMPREHEN METABOLIC 10-05-2015 [facility] PANEL 18381 CPT-4 ASSAY THYROID STIM 10-05-2015 [facility] HORMONE 97055 CPT-4 GLYCOSYLATED HEMOGLOBIN 10-05-2015 [facility] TEST 94552 CPT-4 X-RAY EXAM OF NECK 10-05-2015 [facility] SPINE 13699 CPT-4 ROUTINE VENIPUNCTURE 10-05-2015 [facility] Functional status No functional or cognitive [...]
--- OUTSIDE RECORDS SUMMARY | 2017-04-22 14:10 | External Medical Summary ---
:1930 Author Organization [facility] Care Team Providers Name Role Phone LINDA KNOWLES, MARLON Primary Care Provider [phone] MARLON MCKEON MD Primary Care Provider [phone] Summary purpose CCDA Sent to [facility] Chief Complaint and Reason for Visit [...] Code Type Description Date Performed Performing Physician 65098 CPT-4 UPPER GI ENDOSCOPY, 06-20-2015 CHRISTINE ARITA BIOPSY 16007 CPT-4 US EXAM OF HEAD AND 06-20-2015 CHRISTINE ARITA NECK 45717 CPT-4 TISSUE EXAM BY 06-20-2015 CHRISTINE ARITA PATHOLOGIST 88728 CPT-4 SPECIAL STAINS 06-20-2015 CHRISTINE ARITA Functional status Cognitive Status Finding Observation Time Level of Consciousne Alert 42-93-244127:30 Oriented to Person Yes 63-70-511248:[address] Yes 70-30-403495:30 Oriented to Time Yes 31-66-247016:30 Eyes - YEHUDA Yes :30 Vital signs Type Value Date Pulse 76 64-04-010618:34 O2 Saturation 98% 83-92-044760:34 Systolic Blood Press 152mm/HG 67-19-977909:55 Diastolic Blood Pres 69mm/HG 04-64-276435:55 Temperature (Fahr) 97.8Degrees :34 Social history Type Value Smoking Status NEVER SMOKER Treatment Plan No treatment plan text is available for this visit. Hospital discharge instructions Diagnosis the pt was here fro the EGD and the pt is sent to Diet as tolerated Activity Level as tolerated Other Instructions call the Dr or the opt staff if any problem
--- OUTSIDE RECORDS SUMMARY | 2017-04-22 14:10 | External Medical Summary ---
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 Problem list No authorized problems tracked for [...] tablet 40 miligram(s) oral oral NEEDED for SWELLING every other day Current levothyroxine 150 mcg [...] tablet,delayed 40 miligram(s) oral BEDTIME release Current Symbicort 160 mcg-4.5 mcg/actuation HFA 2 [...] diagnostic tests and/or laboratory data RESULTS CBC :22:00 Result Normal Range Units WBC H 10.35 4.60-10.20 x 103/uL RBC L 3.48 4.04-6.13 x 106/uL Hemoglobin L 11.3 12.2-18.1 g/dl Hematocrit L 35.0 37.7-53.7 % MCV H 100.6 80.0-97.0 FL MCH H 32.5 27.0-31.2 pg MCHC 32.3 31.8-35.4 g/dl RDW 13.8 11.6-14.8 % Platelets 266 142-424 x 103/uL MPV L 9.3 9.4-12.4 FL Manual Diff Not Indicated Neutrophil % 68.2 37-80 % Neutrophils H 7.06 2.0-6.9 x 103/uL Lymphocyte % 19.4 10-50 % Lymphocytes 2.01 0.6-3.4 x 103/uL Monocyte % 9.2 0-12 % Monocytes 0.95 0.0-1.0 x 103/uL Eosinophil % 2.5 0-7 % Eosinophils 0.26 0-0.7 x 103/uL Basophil % 0.7 0-2 % Basophils 0.07 0.0-0.1 x 103/uL Chemistry Group :22:00 Result Normal Range Units Glucose H 155 70-99 mg/dl BUN H 27 7-26 mg/dl Creatinine H 1.5 0.6-1.3 mg/dl Sodium 136 136-145 mmol/L Potassium 4.3 3.5-5.1 mmol/L Chloride 98 98-107 mmol/L CO2 H 30 22-29 mmol/L BUN/Creatinine Ratio 18 7-25 Ratio Calcium 10.1 8.4-10.2 mg/dl Protein Total L 5.8 6.4-8.3 g/dl Albumin 3.7 3.5-5.0 g/dl A/G Ratio 1.8 1.2-2.2 Ratio AST 22 5-34 U/L ALT 15 0-55 U/L ALP 75 40-150 U/L Bilirubin Total 0.4 0.2-1.2 mg/dl Osmolality 271 261-280 mOsm/kg Globulin L 2.1 2.4-3.5 g/dl History of procedures Procedure Code Code Type Description Date Performed Performing Physician 72597 CPT-4 COMPLETE CBC W/AUTO DIFF 11-01-2015 MARLON LOPEZ WBC 87706 CPT-4 COMPREHEN METABOLIC 11-01-2015 MARLON LOPEZ PANEL 79628 CPT-4 CT CHEST SPINE W/O DYE 11-01-2015 MARLON LOPEZ 62800 CPT-4 CT LUMBAR SPINE W/O 11-01-2015 MARLON LOPEZ DYE 63935 CPT-4 ROUTINE VENIPUNCTURE 11-01-2015 MARLON LOPEZ 05657 CPT-4 EMERGENCY DEPT VISIT 11-01-2015 MARLON LOPEZ J7030 CPT-4 INFUSION, NS, 1000 CC 11-01-2015 MARLON LOPEZ 15120 CPT-4 THER/PROPH/DIAG IV INF, 11-01-2015 MARLON LOPEZ INIT Functional status Cognitive Status Finding Observation Time Level of Consciousne Alert 73-66-027365:45 Oriented to Person Yes :[address] Yes 73-04-106916:45 Oriented to Time Yes 02-00-012653:45 Vital signs Type Value Date Respirations 20 :31 Pulse 68 66-31-837929:31 O2 Saturation 100% :31 Systolic Blood Press 156mm/HG :31 Diastolic Blood Pres 71mm/HG :31 Temperature (Fahr) 97.8Degrees :31 Social history Type Value Smoking Status UNKNOWN IF EVER SMOKED Treatment Plan No treatment plan text is available for this visit. Hospital discharge instructions Diagnosis Fall, unsteady gait, adverse reaction to medication Diet push fluids. Activity Level as tolerated. ambulate slowly with walker and change positions slowly. Follow up with Dr. Lopez Appointment Date and mon. or Tu. Other Instructions STOP THE CYMBALTA
--- OUTSIDE RECORDS SUMMARY | 2017-04-22 14:10 | External Medical Summary ---
:1930 Author Organization [facility] Care Team Providers Name Role Phone LINDA KNOWLES, MARLON Primary Care Provider [phone] Summary purpose CCDA Sent to [facility] Chief Complaint and Reason for Visit [...] diagnostic tests and/or laboratory data RESULTS CBC 29-43-940117:30:00 Result Normal Range Units WBC 10.07 4.60-10.20 x 103/uL RBC L 3.50 4.04-6.13 x 106/uL Hemoglobin L 11.4 12.2-18.1 g/dl Hematocrit L 35.6 37.7-53.7 % MCV H 101.7 80.0-97.0 FL MCH H 32.6 27.0-31.2 pg MCHC 32.0 31.8-35.4 g/dl RDW 14.0 11.6-14.8 % Platelets 276 142-424 x 103/uL MPV L 9.3 9.4-12.4 FL Manual Diff Not Indicated Neutrophil % 70.3 37-80 % Neutrophils H 7.08 2.0-6.9 x 103/uL Lymphocyte % 17.4 10-50 % Lymphocytes 1.75 0.6-3.4 x 103/uL Monocyte % 10.3 0-12 % Monocytes H 1.04 0.0-1.0 x 103/uL Eosinophil % 1.6 0-7 % Eosinophils 0.16 0-0.7 x 103/uL Basophil % 0.4 0-2 % Basophils 0.04 0.0-0.1 x 103/uL Chemistry Group [id number]:30:00 Result Normal Range Units Glucose H 131 70-99 mg/dl BUN H 27 7-26 mg/dl Creatinine H 1.6 0.6-1.3 mg/dl Sodium 140 136-145 mmol/L Potassium 4.3 3.5-5.1 mmol/L Chloride 100 98-107 mmol/L CO2 29 22-29 mmol/L BUN/Creatinine Ratio 17 7-25 Ratio Calcium H 10.3 8.4-10.2 mg/dl Protein Total L 5.8 6.4-8.3 g/dl Albumin 3.7 3.5-5.0 g/dl A/G Ratio 1.8 1.2-2.2 Ratio AST 17 5-34 U/L ALT 16 0-55 U/L ALP 80 40-150 U/L Bilirubin Total 0.5 0.2-1.2 mg/dl Osmolality 277 261-280 mOsm/kg Globulin L 2.1 2.4-3.5 g/dl Magnesium 1.7 1.6-2.8 mg/dl Phosphorus L 2.2 2.3-4.7 mg/dl History of procedures Procedure Code Code Type Description Date Performed Performing Physician 24688 CPT-4 COMPLETE CBC W/AUTO DIFF 11-05-2015 [facility] WBC 95174 CPT-4 COMPREHEN METABOLIC 11-05-2015 [facility] PANEL 81645 CPT-4 ASSAY OF MAGNESIUM 11-05-2015 [facility] 71485 CPT-4 ASSAY OF PHOSPHORUS 11-05-2015 [facility] 55689 CPT-4 ROUTINE VENIPUNCTURE 11-05-2015 [facility] Functional status No functional [...]
--- OUTSIDE RECORDS SUMMARY | 2017-04-22 14:10 | External Medical Summary ---
:1930 Author Organization [facility] Care Team Providers Name Role Phone LINDA KNOWLES, MARLON Primary Care Provider [phone] Summary purpose CCDA Sent to [facility] Chief Complaint and Reason for Visit [...] tests and/or laboratory data RESULTS Chemistry Group [id number]:45:00 Result Normal Range Units Glucose H 112 70-99 mg/dl BUN H 28 7-26 mg/dl Creatinine 1.3 0.6-1.3 mg/dl Sodium 141 136-145 mmol/L Potassium H 5.2 3.5-5.1 mmol/L Chloride 103 98-107 mmol/L CO2 H 30 22-29 mmol/L BUN/Creatinine Ratio 22 7-25 Ratio Calcium 10.0 8.4-10.2 mg/dl Osmolality 278 261-280 mOsm/kg Anion GAP 8 5-16 mmol/L Magnesium 1.8 1.6-2.8 mg/dl Phosphorus 3.1 2.3-4.7 mg/dl History of procedures Procedure Code Code Type Description Date Performed Performing Physician 87614 CPT-4 METABOLIC PANEL TOTAL 12-20-2015 [place] [address] CPT-4 ASSAY OF MAGNESIUM 12-20-2015 MARLON MCKEON 52120 CPT-4 ASSAY OF PHOSPHORUS 12-20-2015 MARLON MCKEON 18666 CPT-4 ROUTINE VENIPUNCTURE 12-20-2015 MARLON MCKEON Functional status No functional or [...]
--- OUTSIDE RECORDS SUMMARY | 2017-04-22 14:10 | External Medical Summary ---
:1930 Author Organization [facility] Care Team Providers Name Role Phone LINDA KNOWLES, MARLON Primary Care Provider [phone] Summary purpose CCDA Sent to [facility] [...] Code Type Description Date Performed Performing Physician 99913 CPT-4 US EXAM OF HEAD AND 10-09-2015 MARLON MCKEON NECK 00167 CPT-4 CT SOFT TISSUE NECK 10-09-2015 MARLON MCKEON W/DYE Q9967 CPT-4 LOCM 300-399MG/ML 10-09-2015 MARLON MCKEON IODINE,1ML J7050 CPT-4 NS SOLUTION 250 CC 10-09-2015 MARLON MCKEON INFUSION Functional status No functional or cognitive [...]
--- OUTSIDE RECORDS SUMMARY | 2017-04-22 14:10 | External Medical Summary ---
:1930 Author Organization [facility] Care Team Providers Name Role Phone MARLON MCKEON MD Primary Care Provider [phone] Summary purpose CCDA Sent to [facility] [...] Code Type Description Date Performed Performing Physician 24861 CPT-4 ELECTROCARDIOGRAM REPORT 12-30-2016 MARLON MCKEON Functional status No functional or [...]
--- OUTSIDE RECORDS SUMMARY | 2017-04-22 14:10 | External Medical Summary ---
:[address] [facility] Care Team Providers Name Role Phone LINDA KNOWLES, MARLON Primary Care Provider [phone] Summary purpose CCDA Sent to [facility] Chief Complaint and Reason for Visit [...] diagnostic tests and/or laboratory data RESULTS CBC [id number]:20:00 Result Normal Range Units WBC 9.54 4.60-10.20 x 103/uL RBC L 3.27 4.04-6.13 x 106/uL Hemoglobin L 10.5 12.2-18.1 g/dl Hematocrit L 33.7 37.7-53.7 % MCV H 103.1 80.0-97.0 FL MCH H 32.1 27.0-31.2 pg MCHC L 31.2 31.8-35.4 g/dl RDW 13.7 11.6-14.8 % Platelets 195 142-424 x 103/uL MPV 10.1 9.4-12.4 FL Manual Diff Not Indicated Neutrophil % 72.1 37-80 % Neutrophils 6.88 2.0-6.9 x 103/uL Lymphocyte % 18.8 10-50 % Lymphocytes 1.79 0.6-3.4 x 103/uL Monocyte % 7.7 0-12 % Monocytes 0.73 0.0-1.0 x 103/uL Eosinophil % 1.0 0-7 % Eosinophils 0.10 0-0.7 x 103/uL Basophil % 0.4 0-2 % Basophils 0.04 0.0-0.1 x 103/uL Urinalysis :20:00 Result Normal Range Units Site Clean Catch Urine Color Yellow Yellow Urine Appearance Clear Clear Urine Glucose Negative Negative Urine Bilirubin Negative Negative Urine Ketones Negative Negative Urine Specific [place] 1.015 1.010-1.020 Urine PH 7.5 5.5-7.5 Urine Protein AB 1+ Negative Urine Urobilinogen 0.2 0.2-1.0 Urine Nitrites Negative Negative Urine Blood Negative Negative Urine Leukocytes AB Trace Negative Urine WBC's 6-10 Urine RBC's 0-2 Squamous Epi's 1+ Chemistry Group :20:00 Result Normal Range Units Glucose H 120 70-99 mg/dl BUN H 29 7-26 mg/dl Creatinine H 1.4 0.6-1.3 mg/dl Sodium 138 136-145 mmol/L Potassium 4.0 3.5-5.1 mmol/L Chloride L 97 98-107 mmol/L CO2 H 32 22-29 mmol/L BUN/Creatinine Ratio 21 7-25 Ratio Calcium H 10.4 8.4-10.2 mg/dl Protein Total L 5.8 6.4-8.3 g/dl Albumin 3.6 3.5-5.0 g/dl A/G Ratio 1.6 1.2-2.2 Ratio AST 30 5-34 U/L ALT 16 0-55 U/L ALP 83 40-150 U/L Bilirubin Total 0.5 0.2-1.2 mg/dl Osmolality 274 261-280 mOsm/kg Globulin L 2.2 2.4-3.5 g/dl Magnesium L 1.5 1.6-2.8 mg/dl Phosphorus 2.6 2.3-4.7 mg/dl Lactic Acid 10.5 3.2-11.3 mg/dl Urinalysis :20:00 Result Normal Range Units Site Clean Catch Urine Color Yellow Yellow Urine Appearance Clear Clear Urine Glucose Negative Negative Urine Bilirubin Negative Negative Urine Ketones Negative Negative Urine Specific [place] 1.015 1.010-1.020 Urine PH 7.5 5.5-7.5 Urine Protein AB 1+ Negative Urine Urobilinogen 0.2 0.2-1.0 Urine Nitrites Negative Negative Urine Blood Negative Negative Urine Leukocytes AB Trace Negative Urine WBC's 6-10 Urine RBC's 0-2 Squamous Epi's 1+ History of procedures Procedure Code Code Type Description Date Performed Performing Physician 25043 CPT-4 COMPLETE CBC W/AUTO DIFF 10-26-2015 MARLON RIDGEWAY WBC 05813 CPT-4 COMPREHEN METABOLIC 10-26-2015 [facility] PANEL 07948 CPT-4 [facility]AY [facility] CPT-4 ASSAY OF PHOSPHORUS 10-26-2015 [facility] 33236 CPT-4 BLOOD GASES: PH, PO2 10-26-2015 MARLON RIDGEWAY & PCO2 48094 CPT-4 WITHDRAWAL OF ARTERIAL 10-26-2015 [facility] BLOOD 10545 CPT-4 ASSAY OF LACTIC ACID 10-26-2015 MARLON RIDGEWAY 02073 CPT-4 URINALYSIS, AUTO 10-26-2015 MARLON RIDGEWAY W/SCOPE 49091 CPT-4 URINE CULTURE/COLONY 10-26-2015 MARLON RIDGEWAY COUNT 86727 CPT-4 ROUTINE VENIPUNCTURE 10-26-2015 MARLON RIDGEWAY 17945 CPT-4 CULTURE AEROBIC 10-26-2015 [facility] IDENTIFY 37644 CPT-4 MICROBE SUSCEPTIBLE, 10-26-2015 [facility] FELICIA Functional status No functional or cognitive status [...]
--- OUTSIDE RECORDS SUMMARY | 2017-04-22 14:10 | External Medical Summary ---
:1930 Author Organization [facility] Care Team Providers Name Role Phone LINDA KNOWLES, MARLON Primary Care Provider [phone] Summary purpose CCDA Sent to [facility] Chief Complaint and Reason for [...] Code Type Description Date Performed Performing Physician 29773 CPT-4 CT LUMBAR SPINE W/O 07-20-2015 CORRIE LEOS Functional status No functional or cognitive status [...]
--- OUTSIDE RECORDS SUMMARY | 2017-04-22 14:10 | External Medical Summary ---
:[address] [facility] Care Team Providers Name Role Phone LINDA KNOWLES, MARLON Primary Care Provider [phone] Summary purpose CCDA Sent to [facility] Chief Complaint and Reason for Visit Admit Diagnosis 1 OTHER MALAISE & FATIGUE Problem list No authorized problems tracked for [...] diagnostic tests and/or laboratory data RESULTS CBC [id number]:00:00 Result Normal Range Units WBC 6.21 4.60-10.20 x 103/uL RBC L 3.47 4.04-6.13 x 106/uL Hemoglobin L 10.8 12.2-18.1 g/dl Hematocrit L 35.2 37.7-53.7 % MCV H 101.4 80.0-97.0 FL MCH 31.1 27.0-31.2 pg MCHC L 30.7 31.8-35.4 g/dl RDW 13.8 11.6-14.8 % Platelets 212 142-424 x 103/uL Manual Diff Not Indicated MPV L 9.3 9.4-12.4 FL Neutrophil % 56.5 37-80 % Neutrophils 3.51 2.0-6.9 x 103/uL Lymphocyte % 27.2 10-50 % Lymphocytes 1.69 0.6-3.4 x 103/uL Monocyte % H 12.7 0-12 % Monocytes 0.79 0.0-1.0 x 103/uL Eosinophil % 3.1 0-7 % Eosinophils 0.19 0-0.7 x 103/uL Basophil % 0.5 0-2 % Basophils 0.03 0.0-0.1 x 103/uL Chemistry Group [id number]:00:00 Result Normal Range Units Glucose 87 65-110 mg/dl BUN H 29 7-21 mg/dl Creatinine 1.1 0.7-1.5 mg/dl Sodium 141 137-145 mmol/L Potassium H 5.3 3.6-5.0 mmol/L Chloride 100 98-107 mmol/L CO2 H 31 22-30 mmol/L BUN/Creatinine Ratio H 26.3 7-25 Ratio Calcium H 10.3 8.4-10.2 mg/dl Protein Total L 6.0 6.3-8.2 g/dl Albumin 3.7 3.5-5.0 g/dl A/G Ratio 1.6 1.2-2.2 Ratio AST 22 15-46 U/L ALT 27 7-56 U/L ALP 94 38-126 U/L Bilirubin Total 0.4 0.2-1.3 mg/dl Osmolality 278 261-280 mOsm/kg Globulin L 2.3 2.4-3.5 g/dL Hemoglobin A1C 5.5 < 6.0 % TSH 0.55 0.35-4.94 uIU/mL History of procedures Procedure Code Code Type Description Date Performed Performing Physician 96615 CPT-4 COMPLETE CBC W/AUTO DIFF 08-01-2014 [facility] WBC 56823 CPT-4 COMPREHEN METABOLIC 08-01-2014 [facility] PANEL 97282 CPT-4 ASSAY THYROID STIM 08-01-2014 [facility] HORMONE 87007 CPT-4 GLYCOSYLATED HEMOGLOBIN 08-01-2014 [facility] TEST 76274 CPT-4 ROUTINE VENIPUNCTURE 08-01-2014 [facility] Functional status No functional [...]
--- OUTSIDE RECORDS SUMMARY | 2017-04-22 14:10 | External Medical Summary ---
:1930 Author Organization [facility] Care Team Providers Name Role Phone LINDA KNOWLES, MARLON Primary Care Provider [phone] Summary purpose CCDA Sent to [facility] Chief Complaint and Reason for Visit [...] tests and/or laboratory data RESULTS Chemistry Group [id number]:00:00 Result Normal Range Units Hemoglobin A1C 5.0 < 6.0 % History of procedures Procedure Code Code Type Description Date Performed Performing Physician 66875 CPT-4 GLYCOSYLATED HEMOGLOBIN 02-12-2016 MARLON MCKEON TEST 70237 CPT-4 ROUTINE VENIPUNCTURE 02-12-2016 MARLON MCKEON Functional status No functional or [...]
--- OUTSIDE RECORDS SUMMARY | 2017-04-22 14:10 | External Medical Summary ---
:1930 Author Organization [facility] Care Team Providers Name Role Phone MARLON MCKEON MD Primary Care Provider [phone] Summary purpose CCDA Sent to [facility] Chief Complaint and Reason for [...] for this patient visit History of procedures No procedures recorded for this patient visit. Functional status No functional or cognitive status [...]
--- OUTSIDE RECORDS SUMMARY | 2017-04-22 14:10 | External Medical Summary ---
:1930 Author Organization [facility] Care Team Providers Name Role Phone LINDA KNOWLES, MARLON Primary Care Provider [phone] Summary purpose CCDA Sent to [facility] Chief Complaint and Reason for Visit [...] diagnostic tests and/or laboratory data RESULTS CBC [id number]:09:00 Result Normal Range Units WBC 7.64 4.60-10.20 x 103/uL RBC L 3.19 4.04-6.13 x 106/uL Hemoglobin L 10.1 12.2-18.1 g/dl Hematocrit L 34.0 37.7-53.7 % MCV H 106.6 80.0-97.0 FL MCH H 31.7 27.0-31.2 pg MCHC L 29.7 31.8-35.4 g/dl RDW 14.3 11.6-14.8 % Platelets 222 142-424 x 103/uL MPV 9.8 9.4-12.4 FL Manual Diff Not Indicated Neutrophil % 65.9 37-80 % Neutrophils 5.03 2.0-6.9 x 103/uL Lymphocyte % 21.1 10-50 % Lymphocytes 1.61 0.6-3.4 x 103/uL Monocyte % 9.4 0-12 % Monocytes 0.72 0.0-1.0 x 103/uL Eosinophil % 3.1 0-7 % Eosinophils 0.24 0-0.7 x 103/uL Basophil % 0.5 0-2 % Basophils 0.04 0.0-0.1 x 103/uL Coagulation Group [id number]:00 Result Normal Range Units Protime 10.5 9.6-11.9 Sec INR 1.0 History of procedures Procedure Code Code Type Description Date Performed Performing Physician 28895 CPT-4 COMPLETE CBC W/AUTO 07-25-2015 JEAN GAMA DIFF WBC 00873 CPT-4 PROTHROMBIN TIME 07-25-2015 JEAN GAMA 83810 CPT-4 PERQ VERTEBRAL 07-25-2015 JEAN GAMA AUGMENTATION J0690 CPT-4 CEFAZOLIN NA INJ 07-25-2015 MARLON MCKEON J7050 CPT-4 NS SOLUTION 250 CC 07-25-2015 MARLON MCKEON INFUSION J7030 CPT-4 INFUSION, NS, 1000 CC 07-25-2015 MARLON MCKEON J2250 CPT-4 MIDAZOLAM HCL INJ/1MG 07-25-2015 MARLON MCKEON J3010 CPT-4 FENTANYL CITRATE 07-25-2015 MARLON LINDA INJECITON J2250 CPT-4 MIDAZOLAM HCL INJ/1MG 07-25-2015 MARLON MCKEON J3010 CPT-4 FENTANYL CITRATE 07-25-2015 MARLON HAVERHILL INJECITON A9270 CPT-4 NON-COVERED ITEM OR 07-25-2015 MARLON MCKEON SERVICE Functional status No functional or cognitive status observations are available for this visit. Vital signs Type Value Date Respirations 22 [id number]:02 Pulse 97 :02 O2 Saturation 98% :02 Systolic Blood Press 118mm/HG :02 Diastolic Blood Pres 76mm/HG [id number]:02 Temperature (Fahr) 97.8Degrees :02 Social history No Social History or smoking status observations were recorded for this visit. ( Unknown if ever smoked.) Treatment Plan [facility] discharge instructions No discharge instruction text is available for this visit.
--- OUTSIDE RECORDS SUMMARY | 2017-04-22 14:10 | External Medical Summary ---
:1930 Author Organization [facility] Care Team Providers Name Role Phone LINDA KNOWLES, MARLON Primary Care Provider [phone] Summary purpose CCDA Sent to [facility] Chief Complaint and Reason for Visit Admit Diagnosis 1 DM II HTN VIT D DEF Problem list No authorized problems tracked for [...] Code Type Description Date Performed Performing Physician 01283 CPT-4 COMPREHEN METABOLIC 06-27-2016 MARLON MCKEON PANEL 55018 CPT-4 LIPID PANEL 06-27-2016 MARLON MCKEON 20950 CPT-4 ASSAY THYROID STIM 06-27-2016 MARLON MCKEON HORMONE 87805 CPT-4 ASSAY OF VITAMIN D 06-27-2016 MARLON MCKEON 37681 CPT-4 GLYCOSYLATED HEMOGLOBIN 06-27-2016 MARLON MCKEON TEST 42455 CPT-4 ASSAY OF MAGNESIUM 06-27-2016 MARLON MCKEON 35768 CPT-4 ASSAY OF PHOSPHORUS 06-27-2016 MARLON MCKEON 21482 CPT-4 ROUTINE VENIPUNCTURE 06-27-2016 MARLON MCKEON 78923 CPT-4 BL SMEAR W/DIFF WBC 06-27-2016 MARLON MCKEON COUNT 20174 CPT-4 COMPLETE CBC, 06-27-2016 MARLON MCKEON AUTOMATED Functional status No functional or cognitive status [...]
--- OUTSIDE RECORDS SUMMARY | 2017-04-22 14:10 | External Medical Summary ---
:1930 Author Organization [facility] Care Team Providers Name Role Phone LINDA KNOWLES, MARLON Primary Care Provider [phone] Summary purpose CCDA Sent to [facility] Chief Complaint and Reason for [...] Code Type Description Date Performed Performing Physician A0428 CPT-4 BLS 11-01-2015 CORRIE ROWLAND A0425 CPT-4 [facility] MILEAGE 11-01-2015 CORRIE ROWLAND Functional status No functional [...]
--- OUTSIDE RECORDS SUMMARY | 2017-04-22 14:10 | External Medical Summary ---
:1930 Author Organization [facility] Care Team Providers Name Role Phone LINDA KNOWLES, MARLON Primary Care Provider [phone] Summary purpose CCDA Sent to [facility] Chief Complaint and Reason for [...] Code Type Description Date Performed Performing Physician 16630 CPT-4 EXTRACRANIAL BILAT 02-02-2015 MARLON MCKEON STUDY Functional status No functional or cognitive status [...]
--- OUTSIDE RECORDS SUMMARY | 2017-04-22 14:10 | External Medical Summary ---
:1930 Author Organization [facility] Care Team Providers Name Role Phone LINDA KNOWLES, MARLON Primary Care Provider [phone] Summary purpose CCDA Sent to [facility] Chief Complaint and Reason for Visit Admit Diagnosis 1 DM HYPOTHYROIDISM LOW VIT D ARTHRITIS Problem list No authorized problems tracked for [...] Code Type Description Date Performed Performing Physician 02040 CPT-4 ROUTINE VENIPUNCTURE 10-06-2016 MARLON MCKEON 48111 CPT-4 COMPREHEN METABOLIC 10-06-2016 MARLON MCKEON PANEL 99951 CPT-4 GLYCOSYLATED HEMOGLOBIN 10-06-2016 MARLON MCKEON TEST 55091 CPT-4 ASSAY OF MAGNESIUM 10-06-2016 MARLON MCKEON 20999 CPT-4 ASSAY OF PHOSPHORUS 10-06-2016 MARLON MCKEON 31259 CPT-4 ASSAY OF VITAMIN D 10-06-2016 MARLON MCKEON 73955 CPT-4 COMPLETE CBC W/AUTO DIFF 10-06-2016 MARLON MCKEON WBC Functional status No functional [...]
[2017-04-22] MEDS ORDERED: ONDANSETRON 4 MG/2 ML INJECTION IVP PRN (14:11)
[2017-04-22] MEDS ORDERED: BISACODYL 10 MG SUPPOSITORY RECTALLY PRN (14:11)
--- NOTE | 2017-04-22 14:18 | History & Physical Report ---
History of Present Illness Date: 04/22/17 Chief complaint: hypercapnic respiratory failure, pneumonia, COPD exacerbation HPI: Mrs Carson is a 87 yr old female who resides in [facility] under the PCP Abi Lopez. She was admitted to [facility] on 04/14/17 with CAP. Since that time her respiratory status has been challenging as she has required BiPAP. Over the past 24-48 hours she has becoming more hypercapnic despite Bip- ap. ABG today read the following- PH- 7.3, pCO2 70, P02- 95%, HCO- 41. She initially was on IV Rocephin and Azithromycin, and was changed to IV Vancomycin on 04/20/17. Due to further pulmonary needs, [facility] hospitalist services were contacted and accepted patient for direct admission transfer to CCU for further evaluation and treatment. Carie is seen upon arrival to [facility] - CCU room 6. She is sleeping however does arouse briefly during exam. She states that overall feels weak and fatigued. She currently denies having chest pain or shortness of breath. She is currently on 4 liters of oxygen by nasal canula. Extensive history obtained from chart. Review of Systems All systems PM: 10-point ROS was reviewed, no additional remarkable complaints except - Constitutional Constitutional: Present: fatigue, lethargy, weakness - Respiratory Respiratory: Present: dyspnea Past Medical History COPD Hypertension Chronic kidney disease- Baseline [employer]- 1.6 Hyperlipidemia GERD Hypotension Neuropathy History of stroke Anemia Type II diabetes Vitamin B deficiency Morbid obesity Chronic oxygen dependence-4 liters Surgical History: Spinal fusion. Right knee replacement. Cardiac stent placement. Right shoulder surgery. Hysterectomy Family History Updates: Sister- Alzheimer's dementia - Social History Smoking status: Current every day smoker Substance use type: does not use Alcohol intake frequency: does not drink Social history: PCP - Dr Abi Lopez in [facility] Medications Home Medications Medication Instructions Recorded Confirmed Type Albuterol/Ipratropium [Duoneb] 1 unit AEROSOL QID 04/22/17 04/22/17 History Aspirin 1 tab PO DAILY 04/22/17 04/22/17 History Atorvastatin [Lipitor] 1 tab PO HS 04/22/17 04/22/17 History Clopidogrel [Plavix] 1 tab PO DAILY 04/22/17 04/22/17 History Gabapentin [Neurontin] 600 mg PO TID 04/22/17 04/22/17 History Insulin Aspart [Novolog] See Protocol SQ TIDWM 04/22/17 04/22/17 History Levothyroxine Sodium [Levo-T] 150 mcg PO 04/22/17 History Losartan [Cozaar] 50 mg PO DAILY 04/22/17 04/22/17 History Magnesium Oxide [Magox 400] 400 mg PO BID 04/22/17 04/22/17 History Metoprolol Tartrate [Lopressor] 50 mg PO 04/22/17 History Niacin 500 mg PO BID 04/22/17 04/22/17 History Oxybutynin Chloride 5 mg PO DAILY 04/22/17 04/22/17 History Pantoprazole Sodium [Protonix] DAILY 04/22/17 History guaiFENesin [Mucinex] 600 mg PO BID 04/22/17 04/22/17 History Allergies Allergy/AdvReac Type Severity Reaction Status Date / Time levofloxacin [From Levaquin] Allergy Rash Verified 04/22/17 15:54 Exam Telemetry Rhythm: Sinus Rhythm - Constitutional Present: mild distress, well nourished, well developed - Routine HEENT Exam Eye: Present: EOMI ENT: Present: mucous membranes moist, dentition normal - Routine Respiratory Exam Present: diminished air movement - Routine Cardiovascular Exam Present: RRR, S1, S2. Absent: murmur - Routine Abdominal Exam Present: soft, normoactive bowel sounds, non distended. Absent: tenderness - Routine Extremities Exam Present: edema (trace-1+ edema to BLE), normal capillary refill - Routine Skin Exam Present: intact, dry, warm - Routine Neurological Exam Present: alert, oriented X3, CN II-XII intact - Routine Psychiatric Exam Present: normal affect, cooperative Results - Labs CBC & Chem 7: 04/22/17 16:30 04/22/17 16:30 Assessment and Plan (1) Hypercapnic respiratory failure Current visit: Yes Status: Acute (2) CAP (community acquired pneumonia) Current visit: Yes Status: Acute Assessment and Plan: Impression Hypercapnic respiratory failure- CO2- 70 (04/22) CAP COPD- Chronic O2- 4L Hypertension Stage III Chronic kidney disease Hyperlipidemia GERD Hypotension Neuropathy History of stroke Anemia Type II diabetes Vitamin B deficiency Morbid obesity with BMI 50.8 Plan Admit patient inpatient status under the care of Dr Sepulveda to the CCU for Hypercapnic respiratory failure and CAP Obtain the following labs at time of admission- CBC, CMP, ABG, venous lactate, magnesium, pro calcitonin, blood culture 2. Obtain MRSA screen as well as a viral respiratory panel. Will obtain urinalysis as well as urine strep, Legionella antigens. Obtain a sputum culture Plan to continue on IV vancomycin, however, we will also add Cefepime 1 gm IV daily Will continue with oxygen therapy and add BiPAP. In addition. Consultation placed to Dr. Rowan for further pulmonology evaluation and recommendations. Telemetry to monitor cardiac telemetry dysrhythmias. Place Stanley catheter to monitor output and check daily weights Monitor Accu-Cheks routinely given history of diabetes. Will need to order routine medications once reconciled. CDs to bilateral lower extremity for DVT prophylaxis. Extensive medical records reviewed, patient does have a signed do not resuscitate, and this order is written Further orders and plan of care discussed with attending, Dr Sepulveda At time of discharge care will return to PCP in [place], [place], Dr Abi Lopez. DVT Prophylaxis: SCD's Resuscitation Status: Do Not Resuscitate - Time spent with patient Time with patient PN: 35 minutes (CCU time spent reviewing chart and discussing plan of care with attending) - Physician Narrative Physician: Romero Sepulveda MD Narrative: Date: 04/22/17 Time: 1719 Have independently interviewed and examined patient. Chart reviewed. Case discussed with outlying provider and my [employer]. Care plan developed with my supervision; agree with above. Admitted in [place] on 04/14/17 secondary to pneumonia/respiratory failure. Despite appropriate care and support, respiratory status did decline in the last 24-48 hours. Despite BIPAP therapy, pCO2 increasing. Patient accepted in transfer to [facility] for pulmonology evaluation and continued aggressive medical support. At the time of my interview and examination, patient with minimal responsiveness. Will turn head towards verbal stimuli, but not able to answer questions. Wearing BiPAP and tolerating well. Lungs: decreased, little air movement. CV: regular AB: soft Obese, slight distention. MSE: somnolent. Plan: Will admit to [facility] CCU for aggressive pulmonary care. Continue with BiPAP for respiratory support. Cefepime and Vancomycin for antimicrobial coverage-not able to use Levaquin due to allergy. Neb treatments. Will start Solu-Medrol 125mg IV q 6 hours to decrease pulmonary inflammation. Consult with Dr Rowan for pulm evaluation - patient does have home CPAP, but in visiting with family members it sounds as if her CO2 always runs high. Potentially could benefit from home ventilatory once her acute needs stabilize. Nursing and infusion team not able to gain IV access - will consult with Dr Campbell for central line placement. Monitor blood sugars. Initiate oral intake when patient awake and alert. Monitor lab. Code status DNR. Hospital Course Summary Disclaimer: The visit summary below is not to be considered part of the above Progress Note. Hospital Course: Impression Hypercapnic respiratory failure- CO2- 70 (04/22) CAP COPD- Chronic O2- 4L Hypertension Chronic kidney disease Hyperlipidemia GERD Hypotension Neuropathy History of stroke Anemia Type II diabetes Vitamin B deficiency Morbid obesity Plan Admit patient inpatient status under the care of Dr Sepulveda to the CCU for Hypercapnic respiratory failure and CAP Obtain the following labs at time of admission- CBC, CMP, ABG, venous lactate, magnesium, pro calcitonin, blood culture 2. Obtain MRSA screen as well as a viral respiratory panel. Will obtain urinalysis as well as urine strep, Legionella antigens. Obtain a sputum culture Plan to continue on IV vancomycin, however, we will also add Cefepime 1 gm IV daily Will continue with oxygen therapy and add BiPAP. In addition. Consultation placed to Dr. Rowan for further pulmonology evaluation and recommendations. Telemetry to monitor cardiac telemetry dysrhythmias. Place Stanley catheter to monitor output and check daily weights Monitor Accu-Cheks routinely given history of diabetes. Will need to order routine medications once reconciled. CDs to bilateral lower extremity for DVT prophylaxis. Extensive medical records reviewed, patient does have a signed do not resuscitate, and this order is written Further orders and plan of care discussed with attending, Dr Sepulveda At time of discharge care will return to PCP in [facility], [place], Dr Abi Lopez.
[2017-04-22 14:45] VITALS: BMI 50.8
--- NOTE | 2017-04-22 14:49 | XRay Report ---
Indication: Pneumonia PROCEDURE: XR chest 1V: Encounter: Initial Comparison: None available Findings: Motion artifact. There is hazy airspace opacity in the left mid to lower lung field. Obscuration of the left hemidiaphragm, some of which relates to overlapping soft tissues and an enlarged cardiac silhouette. No pneumothorax or right-sided effusion. Cardiac silhouette is mildly enlarged. There is a large dense 5 cm lesion in the right paratracheal and suprahilar area. Pulmonary vascularity is not well evaluated due to the motion artifact. Right shoulder prosthesis. Impression: 1. Left-sided pneumonia or aspiration. 2. Dense possibly calcified lesion projecting over the right paratracheal region could represent a calcified mediastinal lymph node or mass. Recommend correlation with any available prior radiographs to determine the chronicity of this finding. Chest CT could be helpful for further evaluation. .
[2017-04-22] MEDS: ALBUTEROL/IPRATROPIUM 2.5mg-0.5mg/3ml NEB AEROSOL SCH ×2 (15:42→20:04)
--- NOTE | 2017-04-22 16:01 | Pharmacy Consult-Antibiotics ---
Pharmacy Consult-Vancomycin - Consult Information Order noted by Dr Sepulveda to begin vancomycin therapy on Ms Carson who is 87 yo and weighs 126kg. Her creatinine has not been able to be drawn yet. She has a diagnosis of pneumonia. Vancomycin 1500mg loading dose is ordered followed by 1000mg IV q12h. Will evaluate renal function and perhaps change the dosing regimen at that time. Will continue to monitor. Thank you.
--- NOTE | 2017-04-22 16:39 | Pulmonology Consult Note ---
<SriVianey D - Last Filed: 04/22/17 17:05> History of Present Illness Consult date: 04/22/17 Requesting physician: Romero Sepulveda Reason for consult: dyspnea, hypoxemia Chief complaint: increased lethargy History of present illness: This is an 87 yr old female who currently is lethargic and information received from the chart and staff. She resides in a [facility] home in [facility]. She was recently admitted to [facility] on 04/14/17 with CAP. She has continued with respiratory decline requiring bipap and becoming more hypercapnic despite Bip-ap over the past couple days. She initially was on IV Rocephin and Azithromycin, and was changed to IV Vancomycin on 04/20/17. ABG today showed PH- 7.3/70, ABG here was 7.3/75/89. Due to her continued decline she was transferred to [facility] for further care. We have been consulted for her respiratory issues and bipap management and appreciate the consult. Review of Systems ROS unobtainable: due to mental status [facility] Patient Stated Medical History Peripheral Neuropathy Yes Cataracts Yes: removed bilat., prosthetic right eye Other Cardiology Yes: hx of pericardial effusion Chronic Obstructive Pulmonary Yes Disease (COPD) Pneumonia Yes Sleep Apnea Yes Diabetes Mellitus Type 2 Yes Hx Urinary Tract Infection Yes Shingles Yes: 8 yrs ago Surgical History: Spinal fusion. Right knee replacement. Cardiac stent placement. Right shoulder surgery. Hysterectomy - Social History Smoking status: Never smoker Housing: [facility] Current residence: [place] Medications Home Medications Medication Instructions Recorded Confirmed Type Albuterol/Ipratropium [Duoneb] 1 unit AEROSOL QID 04/22/17 04/22/17 History Aspirin 1 tab PO DAILY 04/22/17 04/22/17 History Atorvastatin [Lipitor] 1 tab PO HS 04/22/17 04/22/17 History Clopidogrel [Plavix] 1 tab PO DAILY 04/22/17 04/22/17 History Gabapentin [Neurontin] 600 mg PO TID 04/22/17 04/22/17 History Insulin Aspart [Novolog] See Protocol SQ TIDWM 04/22/17 04/22/17 History Levothyroxine Sodium [Levo-T] 150 mcg PO DAILY 04/22/17 04/22/17 History Losartan [Cozaar] 50 mg PO DAILY 04/22/17 04/22/17 History Magnesium Oxide [Magox 400] 400 mg PO BID 04/22/17 04/22/17 History Metoprolol Tartrate [Lopressor] 50 mg PO BID 04/22/17 04/22/17 History Niacin 500 mg PO BID 04/22/17 04/22/17 History Oxybutynin Chloride 5 mg PO DAILY 04/22/17 04/22/17 History Pantoprazole Sodium [Protonix] 40 mg PO DAILY 04/22/17 04/22/17 History Sitagliptin Phosphate [Januvia] 50 mg PO DAILY 04/22/17 04/22/17 History Venlafaxine HCl [Venlafaxine HCl 1 cap PO BID 04/22/17 04/22/17 History ER] guaiFENesin [Mucinex] 600 mg PO BID 04/22/17 04/22/17 History Allergies Allergy/AdvReac Type Severity Reaction Status Date / Time levofloxacin [From Levaquin] Allergy Rash Verified 04/22/17 15:54 Exam Vital signs: Respiratory Rate 17 04/22/17 15:43 Pulse Oximetry 99 04/22/17 15:43 - Constitutional no acute distress, morbidly obese - Routine HEENT Exam Head: Present: normocephalic, atraumatic Eye: Present: PERRL ENT: Present: mucous membranes moist - Routine Neck Exam Present: supple, full ROM, trachea midline - Routine Respiratory Exam Present: decreased breath sounds, rhonchi - Routine Cardiovascular Exam Present: RRR, S1, S2, no murmur - Routine Abdominal Exam Present: soft, normoactive bowel sounds - Routine Extremities Exam Present: edema, full ROM - Routine Back/Spine/Pelvis Exam Back/Spine: Present: full ROM - Routine Skin Exam Present: intact, dry - Routine Neurological Exam Present: altered mental status - Routine Psychiatric Exam Present: unable to assess Results - Laboratory Findings CBC and BMP: 04/22/17 16:30 04/22/17 16:30 ABG ABG pH 7.390 (7.350-7.450) 04/22/17 14:28 ABG pCO2 75 MMHG (34-45) H* 04/22/17 14:28 ABG pO2 89 MMHG (80-100) 04/22/17 14:28 ABG O2 Saturation 97.0 % (95.0-98.0) 04/22/17 14:28 Abnormal lab findings: Abnormal Labs 04/22/17 04/22/17 14:08 14:28 ABG pCO2 75 H* ABG HCO3 45 H ABG Total CO2 47.7 H ABG Base Excess 16.8 H Ur Specific E[place] 1.010 L - Diagnostic Findings Chest x-ray: image reviewed (cardiomegaly, vascular congestion) Assessment and Plan - Assessment and Plan Acute on Chronic Hypercapnic/Hypoxic Respiratory Failure RED/OHS Morbid Obesity Pulmonary Congestion ? CAP Chronic Kidney Disease Plan: Pt currently on Bipap, changed settings to , will check ABG in am. Has a Hx of respiratory 2/2 OHS on home vent to mask per family, sees Dr. Faye as OP. CXR with cardiomegaly, vascular congestion and question LLL infiltrates. Currently on abx with Vanco/cefepime, currently awaiting central line for additional labs, WBC normal, pt afebrile. Likely would benefit from further diuresis but will await labs and IV access - Time Spent With Patient Total time spent is greater than 50% in coordination of care (as documented) at patient's floor/unit and/or counseling patient: 25 - 35 minutes <Cas Rowan - Last Filed: 04/23/17 18:01> [facility] Patient Stated Medical History Peripheral Neuropathy Yes Cataracts Yes: removed bilat., prosthetic right eye Other Cardiology Yes: hx of pericardial effusion Chronic Obstructive Pulmonary Yes Disease (COPD) Pneumonia Yes Sleep Apnea Yes Diabetes Mellitus Type 2 Yes Hx Urinary Tract Infection Yes Shingles Yes: 8 yrs ago Exam Vital signs: Temperature 98.8 F 04/23/17 04:00 Pulse Rate 75 04/23/17 15:00 Respiratory Rate 14 04/23/17 15:42 Blood Pressure 130/60 04/23/17 15:00 Pulse Oximetry 99 04/23/17 15:42 Results - Laboratory Findings CBC and BMP: 04/23/17 05:08 04/23/17 05:08 ABG ABG pH 7.390 (7.350-7.450) 04/22/17 14:28 ABG pCO2 75 MMHG (34-45) H* 04/22/17 14:28 ABG pO2 89 MMHG (80-100) 04/22/17 14:28 ABG O2 Saturation 97.0 % (95.0-98.0) 04/22/17 14:28 Abnormal lab findings: Abnormal Labs 04/22/17 04/22/17 04/22/17 14:08 14:28 16:30 RBC 2.51 L Hgb 8.2 L Hct 27.3 L MCV 108.8 H MCHC 30.0 L RDW Std Deviation 53.9 H MPV 8.3 L Immature Gran % (Auto) 0.8 H Abs Immat Gran (auto) 0.05 H ABG pCO2 75 H* ABG HCO3 45 H ABG Total CO2 47.7 H ABG Base Excess 16.8 H Potassium Chloride Carbon Dioxide Anion Gap BUN Creatinine BUN/Creatinine Ratio Glucose Calcium Magnesium Plasma Lactate Ur Specific [place] 1.010 L 04/22/17 04/22/17 04/23/17 16:30 20:11 05:08 RBC 2.45 L Hgb 8.0 L Hct 26.6 L MCV 108.6 H MCHC 30.1 L RDW Std Deviation 52.4 H MPV 8.6 L Immature Gran % (Auto) Abs Immat Gran (auto) ABG pCO2 ABG HCO3 ABG Total CO2 ABG Base Excess Potassium Chloride 94 L Carbon Dioxide 38 H Anion Gap BUN 48.0 H Creatinine 1.6 H BUN/Creatinine Ratio 30 H Glucose Calcium 10.3 H Magnesium 2.6 H Plasma Lactate < 0.5 L Ur Specific E[place] 04/23/17 05:08 RBC Hgb Hct MCV MCHC RDW Std Deviation MPV Immature Gran % (Auto) Abs Immat Gran (auto) ABG pCO2 ABG HCO3 ABG Total CO2 ABG Base Excess Potassium 5.1 H Chloride 95 L Carbon Dioxide 39 H Anion Gap 4 L BUN 43.0 H Creatinine 1.4 H D BUN/Creatinine Ratio 31 H Glucose 111 H Calcium Magnesium Plasma Lactate Ur Specific [place] Assessment and Plan (1) Acute on chronic respiratory failure with hypercapnia Status: Acute Assessment and plan: Patientis benefitting from and tolerating NIPPV. She would benefit from and qualify for a home BIPAP ST on the basis of hypercapnic failure and obesity hypoventilation syndrome. She has failed the use of CPAP due to her refractory hypercapnia and need for hospitalization. Use of BIPAP ST would improve her hypercapnic failure and reduce the risk of hospitalization and . Current Visit: Yes (2) Obesity hypoventilation syndrome Status: Acute Assessment and plan: She has failed treatment with CPAP. I recommend starting BIPAP ST at home as noted above. Her baseline PCO2 is 75 and is high risk for further deterioration/ increases if BIPAP ST is not used. Current Visit: Yes (3) Obstructive sleep apnea Status: Acute Assessment and plan: longstanding RED, proven by PSG. She has home CPAP and in spite of its use was admitted with hypersomnia and severe cognitive decline. Her signs and symptoms of RED are not controlled with CPAP Current Visit: Yes - Time Spent With Patient Total time spent is greater than 50% in coordination of care (as documented) at patient's floor/unit and/or counseling patient:
[2017-04-22] MEDS ORDERED: VANCOMYCIN 1,500 MG in NS 250ml 500 ML IV ONE (17:00)
--- NOTE | 2017-04-22 18:29 | General Surgery Consult Note ---
Consult date: 04/22/17 Attending Physician: Romero Sepulveda MD Reason for consult: central line [facility] Patient Stated Medical History Peripheral Neuropathy Yes Cataracts Yes: removed bilat., prosthetic right eye Other Cardiology Yes: hx of pericardial effusion Chronic Obstructive Pulmonary Yes Disease (COPD) Pneumonia Yes Sleep Apnea Yes Diabetes Mellitus Type 2 Yes Hx Urinary Tract Infection Yes Shingles Yes: 8 yrs ago Surgical History: Spinal fusion. Right knee replacement. Cardiac stent placement. Right shoulder surgery. Hysterectomy Family History: Sister- Alzheimer's dementia - Social History Smoking status: Current every day smoker Medications Home Medications Medication Instructions Recorded Confirmed Type Albuterol/Ipratropium [Duoneb] 1 unit AEROSOL QID 04/22/17 04/22/17 History Aspirin 1 tab PO DAILY 04/22/17 04/22/17 History Atorvastatin [Lipitor] 1 tab PO HS 04/22/17 04/22/17 History Clopidogrel [Plavix] 1 tab PO DAILY 04/22/17 04/22/17 History Gabapentin [Neurontin] 600 mg PO TID 04/22/17 04/22/17 History Insulin Aspart [Novolog] See Protocol SQ TIDWM 04/22/17 04/22/17 History Levothyroxine Sodium [Levo-T] 150 mcg PO 04/22/17 History Losartan [Cozaar] 50 mg PO DAILY 04/22/17 04/22/17 History Magnesium Oxide [Magox 400] 400 mg PO BID 04/22/17 04/22/17 History Metoprolol Tartrate [Lopressor] 50 mg PO 04/22/17 History Niacin 500 mg PO BID 04/22/17 04/22/17 History Oxybutynin Chloride 5 mg PO DAILY 04/22/17 04/22/17 History Pantoprazole Sodium [Protonix] DAILY 04/22/17 History guaiFENesin [Mucinex] 600 mg PO BID 04/22/17 04/22/17 History Allergies Allergy/AdvReac Type Severity Reaction Status Date / Time levofloxacin [From Levaquin] Allergy Rash Verified 04/22/17 15:54 Review of Systems 10-point ROS: not fully reviewed ROS unobtainable: due to mental status - Vital Signs Last Vital Signs Resp 17 04/22/17 15:43 Pulse Ox 99 04/22/17 15:43 - Laboratory Result Diagrams: 04/22/17 16:30 01/10/18 16:30 - Microbiogy Microbiology 04/22/17 16:30 Peripheral/Iv Start Blood Culture - Preliminary Culture Initiated - Results Pending 04/22/17 14:51 Peripheral/Iv Start Blood Culture - Preliminary Culture Initiated - Results Pending General Surgery Results - Results Labs: 04/22/17 16:30 04/22/17 16:30 Microbiology: Microbiology 04/22/17 16:30 Peripheral/Iv Start Blood Culture - Preliminary Culture Initiated - Results Pending 04/22/17 14:51 Peripheral/Iv Start Blood Culture - Preliminary Culture Initiated - Results Pending Hospital Course Summary Disclaimer: The visit summary below is not to be considered part of the above Progress Note. Hospital Course: Impression Hypercapnic respiratory failure- CO2- 70 (04/22) CAP COPD- Chronic O2- 4L Hypertension Chronic kidney disease Hyperlipidemia GERD Hypotension Neuropathy History of stroke Anemia Type II diabetes Vitamin B deficiency Morbid obesity Plan Admit patient inpatient status under the care of Dr Sepulveda to the CCU for Hypercapnic respiratory failure and CAP Obtain the following labs at time of admission- CBC, CMP, ABG, venous lactate, magnesium, pro calcitonin, blood culture 2. Obtain MRSA screen as well as a viral respiratory panel. Will obtain urinalysis as well as urine strep, Legionella antigens. Obtain a sputum culture Plan to continue on IV vancomycin, however, we will also add Cefepime 1 gm IV daily Will continue with oxygen therapy and add BiPAP. In addition. Consultation placed to Dr. Rowan for further pulmonology evaluation and recommendations. Telemetry to monitor cardiac telemetry dysrhythmias. Place Stanley catheter to monitor output and check daily weights Monitor Accu-Cheks routinely given history of diabetes. Will need to order routine medications once reconciled. CDs to bilateral lower extremity for DVT prophylaxis. Extensive medical records reviewed, patient does have a signed do not resuscitate, and this order is written Further orders and plan of care discussed with attending, Dr Sepulveda At time of discharge care will return to PCP in [place], [place], Dr Abi Lopez.
[2017-04-22] MEDS: CEFEPIME 1 GM in NS 100 ML IV SCH ×2 (18:50→22:07)
--- NOTE | 2017-04-22 18:59 | Consultation ---
DATE OF CONSULTATION 04/22/2017 FINDINGS Mrs. Carson is an 87-year-old female whom I was asked to see this evening for placement of a central line. Her daughter and son were present and did provide some of the clinical history. Apparently the patient does live independently in a facility next to the hospital in her home town of her [place], [place]. Apparently the patient recently had developed a pneumonia and was admitted to [facility]. The patient's daughter states that she initially had begun to improve and was going to be switched to a "swing bed status." Unfortunately , her respiratory illness began to worsen. The patient became more obtunded and had developed increasing shortness of breath. Patient was attempted to be transferred to a tertiary care facility in [place] for further care. All facilities in [place] were at full capacity and the patient was subsequently transferred to our facility for further care. Patient this evening did respond when spoken to but for the most part was fairly obtunded and confused in nature. PAST MEDICAL HISTORY, PAST SURGICAL HISTORY, MEDICATIONS, ALLERGIES, SOCIAL HISTORY, FAMILY HISTORY, REVIEW OF SYSTEMS Performed by my nurse practitioner, Alonzo Guzman APRN. PHYSICAL EXAMINATION GENERAL: Patient is an 87-year-old female who does not appear to be in acute distress. VITAL SIGNS: The only recorded vitals at this time within the EMR are respiratory rate 17, pulse ox 99% on 4 L/nasal cannula. Will review additional vitals when they are present. HEENT: Normocephalic. Pupils are equally round and react to light and accommodation. CHEST: Auscultation of the chest revealed a few bilateral rales and rhonchi. Breath sounds were somewhat coarse. HEART: Regular rate and rhythm. Normal S1 and S2. ABDOMEN: Soft, nontender. EXTREMITIES: Without clubbing, cyanosis or edema. NEUROLOGIC: Cranial nerves II-XII appear to be grossly intact. Patient did not appear to be without focal acute motor sensory deficit. It was difficult, however, to perform a complete neurologic examination given the patient's obtundation. LABORATORY/RADIOGRAPHIC EVALUATION The patient had a CBC and her white count was 6.6. Hemoglobin is low at 8.2. ABG was obtained and her pH was 7.39, pCO2 75 and pO2 89. CMP was obtained and found to be abnormal with a BUN of 48, creatinine 1.6. Chloride was low at 94. Magnesium was slightly high at 2.6. Calcium is slightly elevated at 2.3. Chest x-ray was obtained earlier today. Findings were consistent with left- sided pneumonia or aspiration. There was also a densely calcified lesion noted overlying the right pretracheal region which is felt to be either that of a calcified mediastinal lymph node or mass. Chest CT scan was recommended for further evaluation. ASSESSMENT 87-year-old female with hypercapnic respiratory failure secondary to community- acquired pneumonia. Patient with poor peripheral IV access. PLAN Apparently the nursing staff as well as our IV team was unable to obtain peripheral IV access. Apparently the patient was evaluated also for a PICC line which was not able to be placed. As a result of her need for venous access and the inability of the nursing staff to obtain peripheral IV it is my recommendation that we proceed with placement of a central line. I did discuss in detail with the patient's children who were present this evening what placement of a central line entailed and its associated risks which included but were not inclusive of bleeding, infection, potential for pneumothorax. The patient's family understood and wished to proceed. I did inform the family that the patient is at an increased risk for bleeding given the fact that she is on Plavix. HERMANN
[2017-04-22] MEDS: BUDESONIDE INH.SOLN 0.5mg/2ml NEB AEROSOL SCH (20:03)
[2017-04-22] MEDS: LOSARTAN 50 MG TABLET PO SCH (22:53)
[2017-04-23] MEDS: CEFEPIME 1 GM in NS 100 ML IV SCH ×4 (03:07→22:49)
[2017-04-23] MEDS ORDERED: ACETAMINOPHEN 325 MG TABLET PO PRN (03:30)
[2017-04-23] MEDS: ALBUTEROL/IPRATROPIUM 2.5mg-0.5mg/3ml NEB AEROSOL SCH ×3 (07:52→20:52)
[2017-04-23] MEDS: BUDESONIDE INH.SOLN 0.5mg/2ml NEB AEROSOL SCH ×2 (07:52→20:51)
[2017-04-23] MEDS: LOSARTAN 50 MG TABLET PO SCH (08:21)
--- NOTE | 2017-04-23 08:39 | XRay Report ---
Indication: central line placement PROCEDURE: XR chest 1V: Encounter: Initial Comparison: April 22, 2017 Findings: Right internal jugular central venous catheter in place with the tip projecting over the mid SVC, partially obscured by the calcified mediastinal mass. Lungs are stable in appearance. No pneumothorax. Heart size is unchanged. Impression: New right IJ line tip projects over the mid SVC. There is a preliminary report by virtual radiologic. .
[2017-04-23] MEDS ORDERED: GLUCOSE ORAL GEL 40% 37.5gm PO PRN (09:42)
[2017-04-23] MEDS ORDERED: DEXTROSE 50% SYRINGE 50ml (1 AMP) IVP PRN (09:42)
[2017-04-23] MEDS ORDERED: FUROSEMIDE 20 MG/2 ML INJECTION IVP ONE (10:13)
--- NOTE | 2017-04-23 10:19 | Progress Note ---
- Date 04/23/17 Subjective: F/U: Hypercapnic respiratory failure, CAP, COPD More awake and alert this am. Conversing well. Does not congestion to chest- able to cough up sputum but cough has not been as problematic as past days. Not having chest wall pain with breathing. No nausea or ab pain. Neck and back still and sore-not use to being in bed. Tired and weak in general. Is feeling more hungry, would like to eat. Not having f/c. Objective Vital signs: Temperature 98.8 F 04/23/17 04:00 Pulse Rate 83 04/23/17 08:30 Respiratory Rate 17 04/23/17 08:30 Blood Pressure 208/93 H 04/23/17 08:30 Pulse Oximetry 95 04/23/17 08:30 Height/Weight/BMI: Height 1.57 m Weight 92.6 kg Body Mass Index 50.8 - Constitutional Present: well nourished, well developed, morbidly obese, cooperative - Routine HEENT Exam Head: Present: normocephalic, atraumatic Eye: Present: EOMI, PERRL ENT: Present: mucous membranes dry - Routine Respiratory Exam Present: decreased breath sounds, distant breath sounds, diminished air movement - Routine Cardiovascular Exam Present: RRR, no murmur - Routine Abdominal Exam Present: soft, normoactive bowel sounds, non distended, non tender. Absent: guarding - Routine Extremities Exam Present: cyanosis, clubbing, edema (+3 BLE ), pulses intact - Routine Musculoskeletal Exam Musculoskeletal: Present: no clubbing or cyanosis - Routine Skin Exam Present: dry, warm - Routine Neurological Exam Present: alert, CN II-XII intact, moving all extremities, vision grossly intact , hearing grossly intact. Absent: altered mental status - Routine Psychiatric Exam Present: normal affect, cooperative. Absent: anxious, agitated Results - Labs CBC & Chem 7: 04/23/17 05:08 04/23/17 05:08 Microbiology Results: Microbiology 04/22/17 16:30 Peripheral/Iv Start Blood Culture - Preliminary Culture Initiated - Results Pending 04/22/17 14:51 Peripheral/Iv Start Blood Culture - Preliminary Culture Initiated - Results Pending - ABG Interpretation ABG results: 04/22/17 14:28 ABG pH 7.390 ABG pCO2 75 H* ABG pO2 89 ABG HCO3 45 H ABG Total CO2 47.7 H ABG O2 Saturation 97.0 ABG Base Excess 16.8 H Assessment and Plan (1) Hypercapnic respiratory failure Current visit: Yes Status: Acute (2) CAP (community acquired pneumonia) Current visit: Yes Status: Acute Assessment and Plan: Impression Hypercapnic respiratory failure- CO2- 70 (04/22) CAP COPD- Chronic O2- 4L Hypertension Stage III Chronic kidney disease Hyperlipidemia GERD Hypotension Neuropathy History of stroke Anemia Type II diabetes Vitamin B deficiency Morbid obesity with BMI 50.8 Plan Will continue with cefepime and vancomycin for antimicrobial coverage. Start Solu-Medrol to help decrease pulmonary reactivity. BiPAP for respiratory support - currently maintaining saturation on 4L O2 (but worry O2 alone with elevated CO2). As patient more awake and alert, will add Acapella to help loosen secretions. Lasix 20mg IV x1 to help motivate edema. Speech to check swallow function before initiating diet. Aspercreme and Heating pad to help muscular aches and pains. Tylenol and Tylenol #3 as needed. Recheck BMP and CBC in am - will repeat CXR to monitor pneumonia and pulmonary vascular status. Case discussed with CCU nursing and family-questions answered. Time spent with patient care 35 minutes. DVT Prophylaxis: SCD's Resuscitation Status: Do Not Resuscitate - Time spent with patient Time with patient PN: 35 minutes - Physician Narrative Physician: Romero Sepulveda MD Narrative: Date: 04/23/17 Time: 1016 Hospital Course Summary Disclaimer: The visit summary below is not to be considered part of the above Progress Note. Hospital Course: 04/22/17 Admission to acute - CCU -- Hypercapnic respiratory failure Admit patient inpatient status under the care of Dr Sepulveda to the CCU for Hypercapnic respiratory failure and CAP. Obtain the following labs at time of admission- CBC, CMP, ABG, venous lactate, magnesium, pro calcitonin, blood culture 2. Obtain MRSA screen as well as a viral respiratory panel. Will obtain urinalysis as well as urine strep, Legionella antigens. Obtain a sputum culture. Plan to continue on IV vancomycin, however, we will also add Cefepime 1 gm IV daily. Will continue with oxygen therapy and add BiPAP. In addition. Consultation placed to Dr. Rowan for further pulmonology evaluation and recommendations. Telemetry to monitor cardiac telemetry dysrhythmias. Place Stanley catheter to monitor output and check daily weights. Monitor Accu-Cheks routinely given history of diabetes. Will need to order routine medications once reconciled. SCDs to bilateral lower extremity for DVT prophylaxis. Extensive medical records reviewed, patient does have a signed do not resuscitate, and this order is written. At time of discharge care will return to PCP in [place], [place], Dr Abi Lopez. 04/23/17 More awake and alert today. Communicating better. Central line placed yesterday by Dr Campbell due to poor IV access -- not able to get peripheral site or midline/PICC. Will continue with cefepime and vancomycin for antimicrobial coverage. Start Solu-Medrol to help decrease pulmonary reactivity. ISS added as anticipate increase of sugars with steroids. BiPAP for respiratory support - currently maintaining saturation on 4L O2 (but worry O2 alone with elevated CO2). As patient more awake and alert, will add Acapella to help loosen secretions. Lasix 20mg IV x1 to help motivate edema. Speech to check swallow function before initiating diet. Aspercreme and Heating pad to help muscular aches and pains. Tylenol and Tylenol #3 as needed. Recheck BMP and CBC in am - will repeat CXR to monitor pneumonia and pulmonary vascular status.
[2017-04-23] MEDS: METHYLPREDNISOLONE SOD SUCC 125mg/2ml INJECTION IVP SCH ×3 (11:39→20:36)
[2017-04-23] MEDS: SALINE FLUSH 10ml SYRINGE IV SCH ×2 (11:44→20:39)
--- NOTE | 2017-04-23 11:54 | Pharmacy Consult-Antibiotics ---
Pharmacy Consult-Vancomycin - Laboratory Information WBC 6.3 T/MM3 (4.5-11.0) 04/23/17 05:08 BUN 43.0 MG/DL (7-17) H 04/23/17 05:08 Creatinine 1.4 MG/DL (0.7-1.2) H D 04/23/17 05:08 Procalcitonin 0.06 NG/ML 04/22/17 16:30 - Consult Information Vancomycin consult: day 2 Dose adjustment made based on renal function. Adjusted to Vancomycin 1,000 mg IV q24h. Pharmacy will monitor and adjust dose as needed. Thank you for the consult, Leyda Fitch [facility]
--- NOTE | 2017-04-23 12:58 | Operative Note ---
DATE OR PROCEDURE 04/22/2017 SURGEON Cas Campbell MD PREOPERATIVE DIAGNOSIS Need for central venous access secondary to hypercapnic respiratory failure, poor peripheral IV access. POSTOPERATIVE DIAGNOSIS Need for central venous access secondary to hypercapnic respiratory failure, poor peripheral IV access. PROCEDURE Insertion of a central line under sonographic guidance. ANESTHESIA Local. BRIEF HISTORY/INDICATIONS Please see consult note. In summary, the patient has presented to our facility as a result of hypercapnic respiratory failure secondary to community-acquired pneumonia and nursing staff has been unable to obtain peripheral IV access. DESCRIPTION OF PROCEDURE After informed consent was obtained the right anterior chest and right lateral neck was then prepped and draped in a sterile fashion. Ultrasonography was performed along the right lateral neck. One could see the anatomic location of the internal jugular vein. 1% lidocaine was injected at this location. A Cook needle was then introduced through the area of analgesia and subsequently into the internal jugular vein under sonographic guidance. Venous flush was obtained. A guidewire was then advanced with the Cook needle and the Cook needle was removed. A 5 mm incision was then made adjacent to the exit site of the guidewire. A dilator was advanced over the guidewire and the dilator was then removed. A flushed triple-lumen catheter was then advanced over the guidewire and the guidewire was subsequently removed. Catheter was then secured to the right lateral neck with 2-0 silk. A postprocedure chest x-ray was obtained that did not reveal any evidence for pneumothorax. There was a large calcified mediastinal mass and therefore the tip of the catheter was unable to be seen. There was some angulation of the catheter, but it did appear that the catheter was within the superior vena cava. The patient tolerated the procedure without difficulty. HERMANN
--- NOTE | 2017-04-23 16:24 | Pharmacy Consult- Renal Dosing ---
Pharamcy Consul-Renal Dosing - Laboratory Information 04/22/17 04/23/17 16:30 05:08 BUN 48.0 H 43.0 H Creatinine 1.6 H 1.4 H D - Consult Information Renal dosing: Cefepime dose adjusted to Cefepime 1 gm IV Q8H based on renal function. Pharmacy will monitor and adjust as needed. Thank you, Leyda Fitch [facility]
[2017-04-23] MEDS: APAP/CODEINE 300 MG/30 MG TABLET PO PRN (19:33)
[2017-04-23] MEDS: INSULIN REGULAR, HUMAN 100 UNIT/ML INJECTION SQ PRN (19:42)
[2017-04-23] MEDS ORDERED: ATORVASTATIN 40 MG TABLET PO SCH (21:00)
[2017-04-24] MEDS: METHYLPREDNISOLONE SOD SUCC 125mg/2ml INJECTION IVP SCH ×3 (02:35→14:18)
[2017-04-24] MEDS: INSULIN REGULAR, HUMAN 100 UNIT/ML INJECTION SQ PRN ×3 (06:07→14:30)
[2017-04-24] MEDS: CEFEPIME 1 GM in NS 100 ML IV SCH ×2 (06:07→14:19)
[2017-04-24] MEDS ORDERED: LEVOTHYROXINE 150 MCG TABLET PO SCH (06:30)
[2017-04-24] MEDS: ALBUTEROL/IPRATROPIUM 2.5mg-0.5mg/3ml NEB AEROSOL SCH ×2 (06:35→11:06)
[2017-04-24] MEDS: BUDESONIDE INH.SOLN 0.5mg/2ml NEB AEROSOL SCH (06:35)
--- NOTE | 2017-04-24 08:32 | XRay Report ---
Indication: f/u PROCEDURE: XR chest 1V: Encounter: Initial Comparison: April 22, 2017 Findings: Right IJ line is stable in position. Improving aeration of the right lung base. No new infiltrates. No pneumothorax or definite effusion. Cardiac silhouette remains enlarged. Calcified right mediastinal mass again noted. Pulmonary vascularity is grossly normal. Impression: Improving aeration of the lung bases. .
[2017-04-24] MEDS: LOSARTAN 50 MG TABLET PO SCH (08:59)
[2017-04-24] MEDS ORDERED: ASPIRIN 325 MG TABLET PO SCH (09:00)
[2017-04-24] MEDS ORDERED: CLOPIDOGREL 75 MG TABLET PO SCH (09:00)
[2017-04-24] MEDS: SALINE FLUSH 10ml SYRINGE IV SCH (09:48)
[2017-04-24] MEDS: APAP/CODEINE 300 MG/30 MG TABLET PO PRN ×2 (09:55→14:18)
[2017-04-24] MEDS ORDERED: SALINE FLUSH 10ml SYRINGE IVF PRN (10:22)
[2017-04-24 12:28] VITALS: BP 150/83; RESP 22; TEMP 98
--- NOTE | 2017-04-24 13:35 | Progress Note ---
- Date 04/24/17 Subjective: F/U: Hypercapnic respiratory failure, CAP, COPD Improving. Breathing easier-less congested/SOA. More alert and mentally clear. Strength improving. Eating well. Sugars with elevation secondary to steroids. No f/c. Objective Vital signs: Temperature 98.0 F 04/24/17 12:00 Pulse Rate 86 04/24/17 12:00 Respiratory Rate 22 04/24/17 12:00 Blood Pressure 150/83 H 04/24/17 12:00 Pulse Oximetry 89 L 04/24/17 12:00 Height/Weight/BMI: Height 1.57 m Weight 126.2 kg Body Mass Index 50.8 - Constitutional Present: well nourished, well developed, morbidly obese, cooperative. Absent: combative, agitated, somnolent - Routine HEENT Exam Head: Present: normocephalic, atraumatic Eye: Present: EOMI, PERRL ENT: Present: mucous membranes moist - Routine Respiratory Exam Present: decreased breath sounds, prolonged expiratory phase, distant breath sounds, diminished air movement. Absent: respiratory distress, rhonchi, wheezes , crackles - Routine Cardiovascular Exam Present: RRR, no murmur - Routine Abdominal Exam Present: soft, normoactive bowel sounds, non distended, non tender. Absent: guarding - Routine Extremities Exam Present: edema (+2BLE ), pulses intact. Absent: cyanosis, clubbing - Routine Musculoskeletal Exam Musculoskeletal: Present: no clubbing or cyanosis - Routine Skin Exam Present: dry, warm - Routine Neurological Exam Present: alert, oriented X3, moving all extremities, vision grossly intact, hearing grossly intact, normal speech. Absent: motor deficit, altered mental status - Routine Psychiatric Exam Present: normal affect, normal thought process, cooperative Results - Labs CBC & Chem 7: 04/24/17 05:06 04/24/17 05:06 Microbiology Results: Microbiology 04/22/17 19:12 Urine Legionella Urinary Antigen - Final 04/22/17 19:12 Urine Streptococcus pneumoniae Antigen (M - Final 04/22/17 16:30 Peripheral/Iv Start Blood Culture - Preliminary No Growth After 1 Day 04/22/17 14:51 Peripheral/Iv Start Blood Culture - Preliminary No Growth After 1 Day - ABG Interpretation ABG results: 04/22/17 14:28 ABG pH 7.390 ABG pCO2 75 H* ABG pO2 89 ABG HCO3 45 H ABG Total CO2 47.7 H ABG O2 Saturation 97.0 ABG Base Excess 16.8 H Assessment and Plan (1) Hypercapnic respiratory failure Current visit: Yes Status: Acute (2) CAP (community acquired pneumonia) Current visit: Yes Status: Acute Assessment and Plan: Impression Hypercapnic respiratory failure- CO2- 70 (04/22) CAP COPD Chronic hypoxic respiratory failure - addressed with O at 4L in outpatient setting. RED - CPAP at night Hypertension Stage III Chronic kidney disease Hyperlipidemia GERD Hypotension Neuropathy History of stroke Anemia Type II diabetes Vitamin B deficiency Morbid obesity with BMI 50.8 Plan Clinically improving. O2 needs to baseline. No respiratory distress. Eating well. White count normal. Lab stable other than increased blood sugars secondary to steroids. PT/OT consulted. Tolerated therapy, but very debilitated. IRU screen place; IRU feels patient would be good candidate for rehabilitation. As medically stable, will discharge to IRU. Will continue with cefepime and vancomycin. Transition steroids to Prednisone 40mg BID. Continue Neb treatments, acapella, mucolytics. BiPAP at night for respiratory support - Pulm to set up home ventilator once discharge from IRU approaches. PT/OT to maximize functional status. Will follow patient on IRU for medical care. Care to return to Dr Abi Lopez at time of discharge from [facility]. See orders for details. Case discussed with family-questions answered. Time spent with patient care and discharge greater than 30 minutes. DVT Prophylaxis: SCD's Resuscitation Status: Do Not Resuscitate - Physician Narrative Physician: Romero Sepulveda MD Narrative: Date: 04/24/17 Time: 1332 Hospital Course Summary Disclaimer: The visit summary below is not to be considered part of the above Progress Note. Hospital Course: 04/22/17 Admission to acute - CCU -- Hypercapnic respiratory failure Admit patient inpatient status under the care of Dr Sepulveda to the CCU for Hypercapnic respiratory failure and CAP. Obtain the following labs at time of admission- CBC, CMP, ABG, venous lactate, magnesium, pro calcitonin, blood culture 2. Obtain MRSA screen as well as a viral respiratory panel. Will obtain urinalysis as well as urine strep, Legionella antigens. Obtain a sputum culture. Plan to continue on IV vancomycin, however, we will also add Cefepime 1 gm IV daily. Will continue with oxygen therapy and add BiPAP. In addition. Consultation placed to Dr. Rowan for further pulmonology evaluation and recommendations. Telemetry to monitor cardiac telemetry dysrhythmias. Place Stanley catheter to monitor output and check daily weights. Monitor Accu-Cheks routinely given history of diabetes. Will need to order routine medications once reconciled. SCDs to bilateral lower extremity for DVT prophylaxis. Extensive medical records reviewed, patient does have a signed do not resuscitate, and this order is written. At time of discharge care will return to PCP in [place], [place], Dr Abi Lopez. 04/23/17 More awake and alert today. Communicating better. Central line placed yesterday by Dr Campbell due to poor IV access -- not able to get peripheral site or midline/PICC. Will continue with cefepime and vancomycin for antimicrobial coverage. Start Solu-Medrol to help decrease pulmonary reactivity. ISS added as anticipate increase of sugars with steroids. BiPAP for respiratory support - currently maintaining saturation on 4L O2 (but worry O2 alone with elevated CO2). As patient more awake and alert, will add Acapella to help loosen secretions. Lasix 20mg IV x1 to help motivate edema. Speech to check swallow function before initiating diet. Aspercreme and Heating pad to help muscular aches and pains. Tylenol and Tylenol #3 as needed. Recheck BMP and CBC in am - will repeat CXR to monitor pneumonia and pulmonary vascular status. 04/24/17 Clinically improving. O2 needs to baseline. No respiratory distress. Eating well. Transferred to medical floor for care - order written last night, but bed availability precluded transfer until today. White count normal. Lab stable other than increased blood sugars secondary to steroids. PT/OT consulted. Tolerated therapy, but very debilitated. IRU screen place; IRU feels patient would be good candidate for rehabilitation. As medically stable, will discharge to IRU. Will continue with cefepime and vancomycin. Transition steroids to Prednisone 40mg BID. Continue Neb treatments, acapella, mucolytics. BiPAP at night for respiratory support - Pulm to set up home ventilator once discharge from IRU approaches. PT/OT to maximize functional status. Will follow patient on IRU for medical care. Care to return to Dr Abi Lopez at time of discharge from [facility]. See orders for details.
--- NOTE | 2017-04-24 13:52 | Discharge Summary ---
Discharge Information Date of admission: 04/22/17 13:40 Anticipated date of discharge: 04/24/17 Attending Physician: Romero Sepulveda MD Primary care physician: Dr Abi Lopez Consults: Physician Consult: Cas Rowan Reason For Exam: Resp failure Physician Consult: Cas Campbell Reason For Exam: Central line placement PT/OT Inpatient Rehab Screening Routine - Discharge Diagnosis (1) Hypercapnic respiratory failure Status: Acute (2) CAP (community acquired pneumonia) Status: Acute Discharge diagnosis Hypercapnic respiratory failure- CO2- 70 (04/22) Associated conditions and complications CAP COPD Chronic hypoxic respiratory failure - addressed with O at 4L in outpatient setting. RED - CPAP at night Hypertension Stage III Chronic kidney disease Hyperlipidemia GERD Hypotension Neuropathy History of stroke Anemia Type II diabetes Vitamin B deficiency Morbid obesity with BMI 50.8 - Procedures Procedures: DATE OR PROCEDURE: 04/22/2017 SURGEON: Cas Campbell MD PREOPERATIVE DIAGNOSIS: Need for central venous access secondary to hypercapnic respiratory failure, poor peripheral IV access. POSTOPERATIVE DIAGNOSIS: Need for central venous access secondary to hypercapnic respiratory failure, poor peripheral IV access. PROCEDURE: Insertion of a central line under sonographic guidance. - Laboratory Labs: Admit Lab 04/22/17 16:30 WBC 6.6 Hgb 8.2 L Hct 27.3 L MCV 108.8 H Plt Count 181 Neut % (Auto) 52.3 Lymph % (Auto) 35.8 [place] % (Auto) 8.6 Eos % (Auto) 2.3 Admit Lab 04/22/17 04/22/17 16:30 16:30 Sodium 138 Potassium 5.0 Chloride 94 L Carbon Dioxide 38 H Anion Gap 6 BUN 48.0 H Creatinine 1.6 H GFR Calculation 31 BUN/Creatinine Ratio 30 H Glucose 92 Calcium 10.3 H Magnesium 2.6 H Total Bilirubin 0.40 AST 19 ALT 28 Alkaline Phosphatase 68 Total Protein 6.5 Albumin 3.5 Globulin 3.0 Albumin/Globulin Ratio 1.2 Plasma Lactate 0.6 Procalcitonin 0.06 Blood Gas 04/22/17 14:28 ABG pH 7.390 ABG pCO2 75 H* ABG pO2 89 ABG HCO3 45 H ABG Total CO2 47.7 H ABG O2 Saturation 97.0 O2 Delivery Method Simple mask, % FiO2 (liters per min) 4 01/12/18 05:06 04/24/17 05:06 - Microbiology Microbiology 04/22/17 19:12 Urine Legionella Urinary Antigen - Final - NEGATIVE 04/22/17 19:12 Urine Streptococcus pneumoniae Antigen (M - Final - NEGATIVE 04/22/17 16:30 Peripheral/Iv Start Blood Culture - Preliminary No Growth After 1 Day 04/22/17 14:51 Peripheral/Iv Start Blood Culture - Preliminary No Growth After 1 Day - Radiology Radiology: Date of Exam: 04/22/17 PROCEDURE: XR chest 1V Findings: Motion artifact. There is hazy airspace opacity in the left mid to lower lung field. Obscuration of the left hemidiaphragm, some of which relates to overlapping soft tissues and an enlarged cardiac silhouette. No pneumothorax or right-sided effusion. Cardiac silhouette is mildly enlarged. There is a large dense 5 cm lesion in the right paratracheal and suprahilar area. Pulmonary vascularity is not well evaluated due to the motion artifact. Right shoulder prosthesis. Impression: 1. Left-sided pneumonia or aspiration. 2. Dense possibly calcified lesion projecting over the right paratracheal region could represent a calcified mediastinal lymph node or mass. Recommend correlation with any available prior radiographs to determine the chronicity of this finding. Chest CT could be helpful for further evaluation. Date of Exam: 04/24/17 PROCEDURE: XR chest 1V Findings: Right IJ line is stable in position. Improving aeration of the right lung base. No new infiltrates. No pneumothorax or definite effusion. Cardiac silhouette remains enlarged. Calcified right mediastinal mass again noted. Pulmonary vascularity is grossly normal. Impression: Improving aeration of the lung bases. History of Present Illness HPI: Mrs Carson is a 87 yr old female who resides in [facility] under the PCP Abi Lopez. She was admitted to [facility] on 04/14/17 with CAP. Since that time her respiratory status has been challenging as she has required BiPAP. Over the past 24-48 hours she has becoming more hypercapnic despite Bip- ap. ABG today read the following- PH- 7.3, pCO2 70, P02- 95%, HCO- 41. She initially was on IV Rocephin and Azithromycin, and was changed to IV Vancomycin on 04/20/17. Due to further pulmonary needs, [facility] hospitalist services were contacted and accepted patient for direct admission transfer to CCU for further evaluation and treatment. Carie is seen upon arrival to [facility] - CCU room 6. She is sleeping however does arouse briefly during exam. She states that overall feels weak and fatigued. She currently denies having chest pain or shortness of breath. She is currently on 4 liters of oxygen by nasal canula. Extensive history obtained from chart. For complete details of the H&P refer to than document. Objective Vital signs: Temperature 98.0 F 04/24/17 12:00 Pulse Rate 86 04/24/17 12:00 Respiratory Rate 22 04/24/17 12:00 Blood Pressure 150/83 H 04/24/17 12:00 Pulse Oximetry 89 L 04/24/17 12:00 Height/Weight/BMI: Height 1.57 m Weight 126.2 kg Body Mass Index 50.8 Hospital Course This is a general summary of the patient's hospital course. For more details refer to the complete medical record. Hospital course: 04/22/17 Admission to acute - CCU -- Hypercapnic respiratory failure Admit patient inpatient status under the care of Dr Sepulveda to the CCU for Hypercapnic respiratory failure and CAP. Obtain the following labs at time of admission- CBC, CMP, ABG, venous lactate, magnesium, pro calcitonin, blood culture 2. Obtain MRSA screen as well as a viral respiratory panel. Will obtain urinalysis as well as urine strep, Legionella antigens. Obtain a sputum culture. Plan to continue on IV vancomycin, however, we will also add Cefepime 1 gm IV daily. Will continue with oxygen therapy and add BiPAP. In addition. Consultation placed to Dr. Rowan for further pulmonology evaluation and recommendations. Telemetry to monitor cardiac telemetry dysrhythmias. Place Stanley catheter to monitor output and check daily weights. Monitor Accu-Cheks routinely given history of diabetes. Will need to order routine medications once reconciled. SCDs to bilateral lower extremity for DVT prophylaxis. Extensive medical records reviewed, patient does have a signed do not resuscitate, and this order is written. At time of discharge care will return to PCP in [facility], [place], Dr Abi oLpez. 04/23/17 More awake and alert today. Communicating better. Central line placed yesterday by Dr Campbell due to poor IV access -- not able to get peripheral site or midline/PICC. Will continue with cefepime and vancomycin for antimicrobial coverage. Start Solu-Medrol to help decrease pulmonary reactivity. ISS added as anticipate increase of sugars with steroids. BiPAP for respiratory support - currently maintaining saturation on 4L O2 (but worry O2 alone with elevated CO2). As patient more awake and alert, will add Acapella to help loosen secretions. Lasix 20mg IV x1 to help motivate edema. Speech to check swallow function before initiating diet. Aspercreme and Heating pad to help muscular aches and pains. Tylenol and Tylenol #3 as needed. Recheck BMP and CBC in am - will repeat CXR to monitor pneumonia and pulmonary vascular status. 04/24/17 Clinically improving. O2 needs to baseline. No respiratory distress. Eating well. Transferred to medical floor for care - order written last night, but bed availability precluded transfer until today. White count normal. Lab stable other than increased blood sugars secondary to steroids. PT/OT consulted. Tolerated therapy, but very debilitated. IRU screen place; IRU feels patient would be good candidate for rehabilitation. As medically stable, will discharge to IRU. Will continue with cefepime and vancomycin. Transition steroids to Prednisone 40mg BID. Continue Neb treatments, acapella, mucolytics. BiPAP at night for respiratory support - Pulm to set up home ventilator once discharge from IRU approaches. PT/OT to maximize functional status. Will follow patient on IRU for medical care. Care to return to Dr Abi Lopez at time of discharge from [facility]. See orders for details. Time spent with patient: discharge greater than 30 minutes DVT Prophylaxis: SCD's Discharge Plan - Discharge Disposition Discharge Date: 04/24/17 Disposition: 62 To [facility] INPT Rehab *Condition: Stable Reason For Visit (Visit label in EMR): acute hypoxic hypercapnic resp failure and pneumon - Discharge Medications *Discharge Medications: New RX: Acetaminophen [Tylenol] 650 mg PO PRN PRN tab PRN Reason: Pain RX: Albuterol/Ipratropium [Duoneb] 3 ml AEROSOL RTQID each RX: APAP/Codeine 300/30 (#3) [Tylenol with Codeine #3 (300/30)] 1 tab PO Q4H PRN tab PRN Reason: Pain RX: Bisacodyl Supp [Dulcolax] 10 mg RECTALLY DAILY PRN suppositor PRN Reason: Constipation RX: Cefepime [Maxipime] 1 gm IV Q8H ml RX: Dextrose 50% Pfs [D50%W] 10 ml IVP PRN PRN syringe PRN Reason: Hypoglycemia RX: Glucose Oral Gel 40% [Glutose 15] 37.5 gm PO PRN PRN tube PRN Reason: Hypoglycemia RX: Metoprolol Tartrate [Lopressor] 25 mg PO BIDWM tab RX: Milk of Magnesia [Mom] 30 ml PO DAILY PRN udc PRN Reason: Constipation predniSONE [Prednisone] 40 mg PO BIDWM 1 Days #1 tab RX: Saline Flush [IV Flush] 10 - 80 ml IVF PRN PRN syringe PRN Reason: Flushing RX: Trolamine Salicylate 10% Cream [Aspercreme] 1 applicatio TOP QID tube RX: Vancomycin [Vancocin] 1,000 mg IV Q24H vial RX: Budesonide Inhalation [Pulmicort Inhalation] 0.5 mg AEROSOL RTBID vial RX: Insulin Regular, Human [NovoLIN R] 2 - 8 unit SQ SS PRN vial PRN Reason: Hyperglycemia Continue RX: Oxybutynin Chloride 5 mg PO DAILY RX: Niacin 500 mg PO BID RX: Aspirin 1 tab PO DAILY RX: Gabapentin [Neurontin] 600 mg PO TID RX: Clopidogrel [Plavix] 1 tab PO DAILY RX: guaiFENesin [Mucinex] 600 mg PO BID RX: Albuterol/Ipratropium [Duoneb] 1 unit AEROSOL QID RX: Magnesium Oxide [Magox 400] 400 mg PO BID RX: Losartan [Cozaar] 50 mg PO DAILY RX: Pantoprazole Sodium [Protonix] 40 mg PO DAILY RX: Levothyroxine Sodium [Levo-T] 150 mcg PO DAILY RX: Sitagliptin Phosphate [Januvia] 50 mg PO DAILY RX: Atorvastatin [Lipitor] 1 tab PO HS RX: Venlafaxine HCl [Venlafaxine HCl ER] 1 cap PO BID Discontinued Insulin Aspart [Novolog] See Protocol SQ TIDWM Metoprolol Tartrate [Lopressor] 50 mg PO BID - Discharge Packet/Instructions *Diet: Carb consistent diet *Activity: as per PT *Pain Management/Treatment: tylenol *Wound Care: n/a *Expected Signs/Symptoms: improvement with PT/OT *During Business Hours Contact: N/A *After Business Hours Contact: N/A *Pending Lab/Results: No Pending Lab - IRU/GEN Discharge/Transfer - Referrals/Follow Up - Patient Handouts Patient Handouts: Community Acquired Pneumonia (DC) - Dismissal Complete Discharge Instructions are:: Complete Physician Narrative - Narrative Physician: Romero Sepulveda MD Attestation Narrative: Date: 04/24/17 Time: 1347 I have independently interviewed and examined patient prior to discharge. See my progress note from today for details. Medically stable for discharge to IRU to maximize functional abilities.
[2017-04-24 14:32] VITALS: PULSE 89; O2SAT 92
--- NOTE | 2017-04-24 23:14 | Pulmonology Progress Note ---
Subjective Interval history: Pt sitting up in the chair. States she is doing ok, following commands. No issues noted at this time. Family at bedside. Exam Vital signs: Temperature 98.0 F 04/24/17 12:00 Pulse Rate 89 04/24/17 14:31 Respiratory Rate 22 04/24/17 12:00 Blood Pressure 150/83 H 04/24/17 12:00 Pulse Oximetry 92 04/24/17 14:31 - Constitutional no acute distress, morbidly obese - Routine HEENT Exam Head: Present: normocephalic, atraumatic Eye: Present: EOMI, PERRL ENT: Present: mucous membranes moist - Routine Neck Exam Present: supple, full ROM - Routine Respiratory Exam Present: decreased breath sounds - Routine Cardiovascular Exam Present: S1, S2, no murmur - Routine Abdominal Exam Present: soft, normoactive bowel sounds - Routine Extremities Exam Present: edema, non tender, full ROM - Routine Back/Spine/Pelvis Exam Back/Spine: Present: full ROM - Routine Skin Exam Present: intact, dry - Routine Neurological Exam Present: alert, oriented X3, CN II-XII intact - Routine Psychiatric Exam Present: normal affect, normal thought process - Urinary Catheter Management Urethral Cath placed during this visit: yes Insertion date: 04/22/17 Insertion time: 16:00 Assessment and Plan - Assessment and Plan Acute on Chronic Hypercapnic/Hypoxic Respiratory Failure RED/OHS Morbid Obesity Pulmonary Congestion ? CAP Chronic Kidney Disease Plan: Pt currently on O2 at 4L per NC, ivanna Bipap qHS settings to 18, 18/8. Has a Hx of respiratory 2/2 OHS will need Bipap ST, sees Dr. Faye as OP. Doing much better at this time. Still on abx for pna, pt afebrile and WBC improved. Likely to IRU today. Would wean down steroids. - Time Spent With Patient Total time spent is greater than 50% in coordination of care (as documented) at patient's floor/unit and/or counseling patient: less than 15 minutes
== END 2017-04-24 15:05 | DRG 190 ==
LOC: CCU 13:40 → MED 04-24 08:00
PROVIDERS: ADMIT Hospitalist; ATTEND Hospitalist

== ENCOUNTER 2017-04-24 15:05 | Inpatient (IN) ==
[2017-04-24] MEDS ORDERED: ONDANSETRON 4 MG/2 ML INJECTION IVP PRN (15:36)
[2017-04-24] MEDS ORDERED: GLUCOSE ORAL GEL 40% 37.5gm PO PRN (15:36)
[2017-04-24] MEDS ORDERED: DEXTROSE 50% SYRINGE 50ml (1 AMP) IVP PRN (15:36)
[2017-04-24] MEDS ORDERED: BISACODYL 10 MG SUPPOSITORY RECTALLY PRN (15:36)
[2017-04-24 15:45] VITALS: BMI 50.3
--- NOTE | 2017-04-24 16:16 | IRU History & Physical Report ---
[facility] IRU Date: Date: 04/24/17 Time: 1608 Chief complaint: I'm weak HPI: Ms. Carson is a pleasant 87-year-old female from [place], [place]. Referring physician is Dr. Romero Sepulveda. Primary care provider is Dr. Abi Lopez. The patient was initially admitted to the [facility] in [place] on 05/2017 with community-acquired pneumonia. When I asked her what her symptoms were initially she could not really tell me. She does recall going into the hospital but does not recall if she was short of breath, had a fever or headache cough. The only thing she remembers is that she was diagnosed with pneumonia. She apparently had presented to her doctor's office initially and then sent to the hospital in [place]. She continued to have a decline in her respiratory status and was transferred to [facility] where she was admitted on 04/22/2017 by the hospitalist service. Patient was noted to have hypercapnic respiratory failure with arterial blood gases on the day of admission here revealing a pH of 7.3, PCO2 70 and PO2 95. She also was noted to have community-acquired pneumonia with an infiltrate in the left lower lung. She had been diagnosed with community-acquired pneumonia and was on Rocephin and azithromycin changing to vancomycin on 04/20/2017 at [place]. She was admitted here to the critical care unit. She was changed to vancomycin plus cefepime. She is not able to tolerate Levaquin but she does not recall what her symptom was from that. She states that was a number of years ago. Patient has chronic diagnoses of chronic obstructive pulmonary disease, obstructive sleep apnea as well as diabetes mellitus and morbid obesity. She normally has been on oxygen at home but has displayed respiratory failure, acute on chronic by virtue of worsening PCO2 levels. She states that she does use her nasal CPAP all night every night at home. She reports that she uses oxygen 24 hours daily at home ever since her right knee was replaced. She tends to be quite unclear in her answers. She tends not to answer questions directly. I'm uncertain if this is a manifestation of her acute hypoxemia, medication, pneumonia or sepsis is a chronic situation. She is unclear about her symptoms and unclear about much of her history even remotely. As noted, she has been treated with intravenous antibiotics which she remains on at the present time for her pneumonia. Organism has not been recovered. She is also on injectable Solu-Medrol and breathing treatments with bronchodilators as well as the Acapella device. Respiratory viral PCR panel was performed and was negative. Her chest radiograph has revealed a left lower lobe infiltrate and is improved at the present time. She was seen in consultation by Dr. Rowan, pulmonology. His diagnoses on April 22, 2017 are as follows: 1. Acute on chronic respiratory failure with hypercapnia. He recommended home BiPAP ST since she has failed the use of CPAP. 2. Obesity hypoventilation syndrome, 3. Obstructive sleep apnea proven by sleep study. At the present time she continues on intravenous Lasix, Acapella treatments Solu-Medrol and antibiotics. It is also noted that she has a calcified mediastinal mass or lymph node which may require further evaluation as an outpatient. Her blood pressure has been elevated 178/102. It remains elevated here on rehabilitation. Hemoglobin upon admission was 8.2 and is now down to 7.9. Her MCV is elevated for uncertain reasons. Her initial creatinine here was 1.6 and is now down to 1.2. However her GFR calculation is now 43 consistent with chronic kidney disease stage III. She lives by herself in an apartment connected to the hospital in [place]. She uses a front-wheeled walker for ambulation around her apartment and uses a motorized scooter or similar device when she is outside the apartment and going to eat one meal per day at the hospital. Prior level of functioning is as follows: She was independent for eating, grooming, upper and lower body dressing, toileting. She required minimum assistance for bathing. She was modified independent level for bed/chair/ wheelchair transfers, toilet transfers, and walking. She used a rolling walker and could walk 300 feet. She was modified independent level for stair climbing. Current level of functioning is as follows: She is modified independent for eating, requires maximum assistance for grooming. She requires moderate assistance for upper body dressing, total assistance for lower body dressing and toileting as well as bed/chair/wheelchair transfers. She requires minimum assistance for toilet transfers, total assistance for walking with a rolling walker only 2 feet. She reports that she is extremely weak particularly when it comes to getting up from a sitting position or transferring. She states that her legs give out from under her. She has had a prolonged hospitalization in [place] and here and has had prolonged immobility/bed rest. She has been critically ill. She has evidence of severe proximal muscle weakness based on requirement for total assistance for bed/chair/wheelchair transfers, in addition to demonstrating proximal muscle weakness on physical examination. 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 I asked about her tobacco use history. She states that she has never smoked cigarettes. I also asked about the issue of resuscitation in the event of a cardiac or pulmonary arrest. She requests that no heroic efforts be undertaken in the event of a cardiac or pulmonary arrest. The following medical conditions are noted and require active monitoring and/or management: 1. Disuse myopathy. Because of this she is at risk for decubitus ulcers, high risk for falls and at risk for not being able to resume her independent level of functioning upon dismissal. 2. Community-acquired pneumonia which is at risk of worsening with sepsis and respiratory decline. 3. Acute on chronic hypercapnic respiratory failure: Patient is at risk for further respiratory decline 4. Morbid obesity with obesity hypoventilation syndrome. She has a diagnosis of obstructive sleep apnea and has failed CPAP treatment. 5. Significant anemia of unclear etiology with macrocytosis. Patient is at risk for further decline in hemoglobin resulting in reduced oxygen-carrying capability and thus reduced mentation etc. 6. Hypertension: Her blood pressure remains significantly elevated and she is at risk for further uncontrolled hypertension. The following therapies will be needed: 1. Physical therapy: for transfers and ambulation and stairs. 2. Occupational therapy: for ADL's and transfers. 3. Medical management: for the above conditions. 4. 24 hour Rehabilitation Nursing to monitor and address the following: Oxygen saturation, respiratory function, cognition, reduce fall risk, reduce risk of decubitus ulceration. 5. Dietitian: She is at nutritional risk despite her morbid obesity. In view of her prolonged hospitalization and multiple medical problems with severe illness including pneumonia and respiratory failure she is at risk for catabolic state and poor nutrition. [facility] Patient Stated Medical History Peripheral Neuropathy Yes Cataracts Yes: removed bilat., prosthetic right eye Other Cardiology Yes: hx of pericardial effusion Chronic Obstructive Pulmonary Yes Disease (COPD) Pneumonia Yes Sleep Apnea Yes Diabetes Mellitus Type 2 Yes Hx Urinary Tract Infection Yes Shingles Yes: 8 yrs ago Surgical History: Spinal fusion. Right knee replacement. Cardiac stent placement. Right shoulder surgery. Hysterectomy. 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 In addition a brother and a sister are both at age 65 also of "natural causes." She does have a twin sister who is living and reportedly healthy. - Social History Smoking status: Never smoker Substance use type: does not use Alcohol intake: never Alcohol intake frequency: does not drink Housing: apartment Household members: none Current occupational status: retired Current residence: Apartment/Private Home Social history: She lived with her in an apartment connected to the hospital until 10 months ago. At that time her and she has moved to a smaller apartment also connected to the hospital. The patient has not really worked outside the home but did work raising their 3 children. Her worked as a salesman. She has lived in [place] her entire life. Review of Systems - Constitutional Constitutional: Present: fatigue, weakness. Absent: anorexia, chills, fever(s) , headache(s), lethargy, malaise, night sweats, weight gain, weight loss - EENMT Eyes: Present: other (states that she had a strep infection in the right eye as a child resulting in removal of the globe.). Absent: blurry vision, change in vision, diplopia Mouth/Throat: Absent: changes in swallowing, painful swallowing, change in taste , bleeding gums, change in voice - Cardiovascular Cardiovascular: Present: dyspnea on exertion. Absent: chest pain, palpitations , syncope, orthopnea, edema, cyanosis, heart murmur Rhythm: Present: regular rhythm Vascular: Absent: intermittent claudication, pedal edema, unilateral swelling - Respiratory Respiratory: Present: cough (reports occasional clear sputum produced.), dyspnea , dyspnea on exertion, wheezing, chest congestion. Absent: hemoptysis, pain on inspiration, excessive phlegm production - Gastrointestinal Gastrointestinal: Present: constipation. Absent: abdominal pain, change in bowel habits, diarrhea, dyspepsia, dysphagia, early satiety, hematochezia, melena, nausea, vomiting - Genitourinary Genitourinary: Present: urinary incontinence - Musculoskeletal Musculoskeletal: Present: muscle weakness (she volunteers that her legs are extremely weak particularly with transfers). Absent: abnormal gait, arthralgias , back pain, joint swelling, limited range of motion - Integumentary/Breasts Integumentary: Absent: alopecia, erythema, lesions, pruritus, rash, jaundice - Neurological Neurological: Present: memory loss (based on her answers and lack of clarity I would wonder about memory loss.), weakness. Absent: abnormal gait, abnormal movements, abnormal speech, confusion, convulsions, dizziness, focal weakness, frequent falls, headache(s), loss of vision, numbness, paresthesias, tremor(s) - Psychiatric Psychiatric: Absent: abnormal sleep pattern, anxiety, depression - Endocrine Endocrine: Absent: cold intolerance, flushing, heat intolerance, palpitations - Hematologic/Lymphatic Hematologic/Lymphatic: Absent: easy bleeding, easy bruising, lymphadenopathy - Allergic/Immunologic Allergic/Immunologic: Absent: urticaria Medications Home Medications Medication Instructions Recorded Confirmed Type Albuterol/Ipratropium [Duoneb] 1 unit AEROSOL QID 04/22/17 04/22/17 History Aspirin 1 tab PO DAILY 04/22/17 04/22/17 History Atorvastatin [Lipitor] 1 tab PO HS 04/22/17 04/22/17 History Clopidogrel [Plavix] 1 tab PO DAILY 04/22/17 04/22/17 History Gabapentin [Neurontin] 600 mg PO TID 04/22/17 04/22/17 History Levothyroxine Sodium [Levo-T] 150 mcg PO DAILY 04/22/17 04/22/17 History Losartan [Cozaar] 50 mg PO DAILY 04/22/17 04/22/17 History Magnesium Oxide [Magox 400] 400 mg PO BID 04/22/17 04/22/17 History Niacin 500 mg PO BID 04/22/17 04/22/17 History Oxybutynin Chloride 5 mg PO DAILY 04/22/17 04/22/17 History Pantoprazole Sodium [Protonix] 40 mg PO DAILY 04/22/17 04/22/17 History Sitagliptin Phosphate [Januvia] 50 mg PO DAILY 04/22/17 04/22/17 History Venlafaxine HCl [Venlafaxine HCl 1 cap PO BID 04/22/17 04/22/17 History ER] guaiFENesin [Mucinex] 600 mg PO BID 04/22/17 04/22/17 History Allergies Allergy/AdvReac Type Severity Reaction Status Date / Time levofloxacin [From Levaquin] Allergy Rash Verified 04/22/17 15:54 Results IRU - Labs Labs: I have reviewed extensive inpatient notes, imaging, and other information. Exam Vital Signs: Temperature 98.1 F 04/24/17 15:36 Pulse Rate 83 04/24/17 15:36 Respiratory Rate 24 04/24/17 15:36 Blood Pressure 197/83 H 04/24/17 15:36 Pulse Oximetry 93 04/24/17 15:36 Height/Weight/BMI: Height 1.6 m Weight 129 kg Body Mass Index 50.3 - Constitutional Present: mild distress (coughing and dyspnea), well nourished, well developed, morbidly obese, cooperative Comments: As noted above, answers to questions are not clear. She tends to not answer questions directly and get side tracked. - Routine HEENT Exam Head: Present: normocephalic, atraumatic. Absent: cushingoid faces, abrasion, laceration, hematoma Eye: Present: EOMI. 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 - Routine Neck Exam Present: supple, full ROM, trachea midline. Absent: lymphadenopathy, thyromegaly, tenderness, swelling - Routine Chest/Breast/Axilla Exam Chest wall: Absent: tenderness, mass Axillae: Absent: lymphadenopathy, mass - Routine Respiratory Exam Present: dyspnea, CTA bilaterally, wheezes (faint wheezes are heard bilaterally upon expiration.). Absent: accessory muscle use, decreased breath sounds, prolonged expiratory phase, rales, respiratory distress, rhonchi, stridor, crackles, distant breath sounds Comments: Reduced breath sounds noted left lower lung field with bilateral crackles/fine wheezes heard. - Routine Cardiovascular Exam Present: RRR, S1, S2, no murmur. Absent: gallop, S3, S4, click, irregular rhythm - Routine Abdominal Exam Present: soft, normoactive bowel sounds, non distended, non tender. Absent: rebound, guarding, firm, rigid, organomegaly, mass, hernia, wound - Routine Extremities Exam Present: no edema, non tender, pulses intact. Absent: cyanosis, clubbing Comments: Ecchymosis left [place] - Routine Back/Spine/Pelvis Exam Back/Spine: Present: full ROM. Absent: scoliosis, kyphosis - Routine Skin Exam Present: intact, dry, warm. Absent: cyanosis, erythema, pallor, mottling, petechiae, urticaria, lesions, jaundice - Routine Neurological Exam Present: alert, oriented X3, CN II-XII intact, moving all extremities, normal speech Please see above discussion regarding her potential memory loss and/or at least delirium. She has fairly good strength at the ankles on plantarflexion and dorsiflexion. However upon flexion at the hips against resistance she has marked weakness bilaterally in the lower extremities. - Routine Psychiatric Exam Present: normal affect, normal thought process, cooperative, anxious. Absent: good insight, good judgment, depressed Sepsis Assessment - Evaluation Severe Sepsis: none seen IRU A/P (1) Myopathy Current visit: Yes Status: Acute Ms. Carson has had a prolonged hospitalization with immobility and bedrest with critical illness secondary to her pneumonia and respiratory failure. She has evidence for proximal muscle weakness on physical examination as well as by her own admission. 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 This requires a multidisciplinary approach in view of her multiple and complex medical problems. (2) Hypertension Qualifiers: Hypertension type: essential hypertension Qualified Code(s): I10 - Essential (primary) hypertension Current visit: Yes Status: Acute Her blood pressure has remained elevated and is not well controlled at present. This is likely due to multiple reasons including her respiratory difficulty, cough, anxiety, morbid obesity etc. This will be monitored carefully and medications adjusted as appropriate. (3) Hypercapnic respiratory failure Qualifiers: Chronicity: acute on chronic Qualified Code(s): J96.22 - Acute and chronic respiratory failure with hypercapnia Current visit: No Status: Acute She has evidence for acute on chronic hypercapnic respiratory failure with PCO2 further elevated. She is at risk for further respiratory decline in this will be monitored carefully. (4) CAP (community acquired pneumonia) Qualifiers: Laterality: left Lung location: lower lobe of lung Qualified Code(s): J18.1 - Lobar pneumonia, unspecified organism Current visit: No Status: Acute She has recent history of community-acquired pneumonia still requiring intravenous antibiotics and respiratory therapy. She is at risk for further infection complications including sepsis. (5) Acute on chronic respiratory failure with hypercapnia Current visit: No Status: Acute (6) Obesity hypoventilation syndrome Current visit: No Status: Chronic She has failed nasal CPAP and it is recommended the patient obtain a home BiPAP ST machine. DVT Prophylaxis: Lovenox Resuscitation Status: Do Not Resuscitate - Course Hospital Course: Rell Medina MD: - Interventions to Obtain Goals PT Treatment Plan: Balance/Proprioception, Functional Activities, Gait Training , Patient/Family Education OT Treatment Plan: ADL (Basic Care), Balance Training, Pt./Family Education Goals Progress/Modifications: The patient has suffered a significant decline in her functional ability due to prolonged bedrest secondary to her severe medical problems including community- acquired pneumonia, acute on chronic respiratory failure and morbid obesity. A multidisciplinary approach is required to include physical therapy, occupational therapy, 24 rehabilitation nursing and medical supervision of these multiple problems.
--- NOTE | 2017-04-24 16:31 | IRU 24Hr Post Admit Eval ---
24 Hr Post Admission Physical - Relevant Changes Relevant Changes: No Reviewed: I have reviewed the patient's information and concur with the finding and results of the pre-admission screen. Certification: I certify the patient for rehabilitation. - Patient Condition (1) Myopathy Status: Acute Code(s): G72.9 - Myopathy, unspecified Classification: Present on IRF Admission, IRF Tx That Should Address Diagnosis, Diagnosis Requiring Medical Follow Up (2) Hypertension Status: Acute Qualifiers: Hypertension type: essential hypertension Qualified Code(s): I10 - Essential (primary) hypertension Code(s): I10 - Essential (primary) hypertension Classification: Present on IRF Admission, IRF Tx That Should Address Diagnosis, Diagnosis Requiring Medical Follow Up (3) Hypercapnic respiratory failure Status: Acute Qualifiers: Chronicity: acute on chronic Qualified Code(s): J96.22 - Acute and chronic respiratory failure with hypercapnia Code(s): J96.92 - Respiratory failure, unspecified with hypercapnia Classification: Present on IRF Admission, IRF Tx That Should Address Diagnosis, Diagnosis Requiring Medical Follow Up (4) CAP (community acquired pneumonia) Status: Acute Qualifiers: Laterality: left Lung location: lower lobe of lung Qualified Code(s): J18.1 - Lobar pneumonia, unspecified organism Code(s): J18.9 - Pneumonia, unspecified organism Classification: Present on IRF Admission, IRF Tx That Should Address Diagnosis, Diagnosis Requiring Medical Follow Up (5) Acute on chronic respiratory failure with hypercapnia Status: Acute Code(s): J96.22 - Acute and chronic respiratory failure with hypercapnia Classification: Present on IRF Admission, IRF Tx That Should Address Diagnosis, Diagnosis Requiring Medical Follow Up (6) Obesity hypoventilation syndrome Status: Chronic Code(s): E66.2 - Morbid (severe) obesity with alveolar hypoventilation Classification: Present on IRF Admission, IRF Tx That Should Address Diagnosis, Diagnosis Requiring Medical Follow Up - Prior Functional Status Lives With: Alone Residence Type: Apartment/Private Home Assitive Devices: Front Wheeled Walker, Motorized Wheelchair Prior Functional Status: Indep. at home or school, Depend. w/ IADL - Current Functional Status Current Level of Function: Current level of functioning is as follows: She is modified independent for eating, requires maximum assistance for grooming. She requires moderate assistance for upper body dressing, total assistance for lower body dressing and toileting as well as bed/chair/wheelchair transfers. She requires minimum assistance for toilet transfers, total assistance for walking with a rolling walker only 2 feet. She reports that she is extremely weak particularly when it comes to getting up from a sitting position or transferring. She states that her legs give out from under her. Failed Alternative Therapy: Arrived from Acute Care Patient Requirements: The patient requires oversight by rehabilitation physician to manage their rehabilitation treatment plan and multidisciplinary approach to care that can only be provided in an IRF and requires a multidisciplinary approach to care, provided by professional PTs and OT, dieticians, RTs, rehabilitation nurses and is not available in lesser levels of care. Limitations Req: Mobility Impairment, ADL Impairment, Respiratory Impairment Physical Therapy Minutes: 90 Occupational Therapy Minutes: 90 Therapy: The patient is to receive therapy at least 5 days a week. - Complications/Comorbidities Impact on Functional Outcomes: Her compromised respiratory status with COPD, obesity hypoventilation syndrome and recent pneumonia will negatively impact her functional outcome. 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 She requires 24 rehabilitation nursing monitoring of her pulmonary/respiratory status, monitoring for signs of worsening infection as well as assistance to reduce her fall risk. She requires a multidisciplinary approach with PT, OT and medical supervision to ensure adequate tolerance of therapy and to allow her to return to her previous level of independence.
[2017-04-24] MEDS: SALINE FLUSH 10ml SYRINGE IVF PRN ×2 (17:56→20:14)
[2017-04-24] MEDS: ALBUTEROL/IPRATROPIUM 2.5mg-0.5mg/3ml NEB AEROSOL SCH (19:04)
[2017-04-24] MEDS: BUDESONIDE INH.SOLN 0.5mg/2ml NEB AEROSOL SCH (19:04)
[2017-04-24] MEDS: ATORVASTATIN 40 MG TABLET PO SCH (20:12)
[2017-04-24] MEDS: METHYLPREDNISOLONE SOD SUCC 125mg/2ml INJECTION IVP SCH (20:12)
[2017-04-24] MEDS: SALINE FLUSH 10ml SYRINGE IV SCH ×2 (21:00→22:48)
[2017-04-24] MEDS: INSULIN REGULAR, HUMAN 100 UNIT/ML INJECTION SQ PRN (21:47)
[2017-04-24] MEDS: CEFEPIME 1 GM in NS 100 ML IV SCH (22:48)
[2017-04-25] MEDS: METHYLPREDNISOLONE SOD SUCC 125mg/2ml INJECTION IVP SCH ×2 (02:44→09:02)
[2017-04-25] MEDS: ALBUTEROL/IPRATROPIUM 2.5mg-0.5mg/3ml NEB AEROSOL SCH ×4 (04:55→21:07)
[2017-04-25] MEDS: BUDESONIDE INH.SOLN 0.5mg/2ml NEB AEROSOL SCH ×2 (04:56→21:07)
[2017-04-25] MEDS: INSULIN REGULAR, HUMAN 100 UNIT/ML INJECTION SQ PRN ×4 (06:19→21:05)
[2017-04-25] MEDS: LEVOTHYROXINE 150 MCG TABLET PO SCH (06:20)
[2017-04-25] MEDS: CEFEPIME 1 GM in NS 100 ML IV SCH ×3 (06:20→22:41)
--- NOTE | 2017-04-25 08:17 | IRU Progress Note ---
- Subjective/Serverity of Illness Date: 04/25/17 Bao was evaluated in her room on inpatient rehabilitation. She is quite tremulous. She admits to a resting tremor at home but she is quite shaky at the present time. I imagine this is related to her corticosteroid usage at the present time. She does report some dyspnea. She is using supplemental oxygen. The patient is displaying more confusion. She does not know where she is. She says she remembers me from yesterday but does not know my name. She knows that she is from [facility]. Again it is not certain if this encephalopathy is related to underlying dementia or if this is an acute delirium. She denies any pains at the present time. She is hungry and is on her way to breakfast. Denies any nausea or vomiting. She denies any chest pain. Does have a mild cough. Exam Vital Signs: Temperature 97.9 F 04/24/17 23:17 Pulse Rate 66 04/25/17 00:51 Respiratory Rate 18 04/25/17 04:56 Blood Pressure 158/85 H 04/24/17 23:17 Pulse Oximetry 91 04/25/17 04:56 Height/Weight/BMI: Height 1.6 m Weight 129 kg Body Mass Index 50.3 - Constitutional Present: moderate distress (tremulous, confused), well nourished, well developed , morbidly obese - Routine HEENT Exam Head: Present: cushingoid faces Eye: Present: EOMI ENT: Present: mucous membranes moist - Routine Neck Exam Present: supple - Routine Respiratory Exam Present: decreased breath sounds, prolonged expiratory phase, crackles (has fine wheezes or crackles bilaterally. Decreased breath sounds left base.), distant breath sounds, diminished air movement. Absent: wheezes - Routine Cardiovascular Exam Present: RRR, S1, S2. Absent: murmur - Routine Abdominal Exam Present: soft, normoactive bowel sounds, non distended. Absent: tenderness - Routine Extremities Exam Present: edema - Routine Skin Exam Present: dry, warm - Routine Neurological Exam Present: alert, CN II-XII intact, tremors. Absent: oriented X3 (patient is not oriented to place or time. She is cooperative.) At wrist in her chair she does have tremor of her head and both upper extremities. She is able to feed herself her records. - Routine Psychiatric Exam Present: cooperative, anxious. Absent: good insight, good judgment Results IRU - Labs Labs: Labs including hemoglobin around 7.9 g percent. IRU A/P (1) Myopathy Current visit: Yes Status: Acute She is extremely weak particular in the proximal muscles. Therapy is just beginning with her. (2) Hypertension Qualifiers: Hypertension type: essential hypertension Qualified Code(s): I10 - Essential (primary) hypertension Current visit: Yes Status: Acute Blood pressure has been difficult to obtain due to her obesity and upper extremity edema. (3) Hypercapnic respiratory failure Qualifiers: Chronicity: acute on chronic Qualified Code(s): J96.22 - Acute and chronic respiratory failure with hypercapnia Current visit: No Status: Acute Continues to require supplemental oxygen. (4) CAP (community acquired pneumonia) Qualifiers: Laterality: left Lung location: lower lobe of lung Qualified Code(s): J18.1 - Lobar pneumonia, unspecified organism Current visit: No Status: Acute Continues on antibiotics and tolerating them adequately. Does have a cough. (5) Acute on chronic respiratory failure with hypercapnia Current visit: No Status: Acute (6) Obesity hypoventilation syndrome Current visit: No Status: Chronic (7) Acute encephalopathy Current visit: Yes Status: Acute Her encephalopathy is likely multifactorial and related to her pneumonia, corticosteroid use, hypoxemia as well as likely underlying dementia. DVT Prophylaxis: Lovenox Resuscitation Status: Do Not Resuscitate - Course Hospital Course: Rell Mednia MD: 04/25/17 08:19 Patient seems to be more tremulous and confused today. Hemoglobin 7.9 g percent. Getting started with therapy. - Interventions to Obtain Goals PT Treatment Plan: Balance/Proprioception, Functional Activities, Gait Training , Patient/Family Education OT Treatment Plan: ADL (Basic Care), Balance Training, Pt./Family Education Goals Progress/Modifications: Time spent with patient and on floor reviewing data and documentin min Barriers to dismissal: confusion, memory, pneumonia, hypoxia, endurance, muscle weakness Medical decision-making: She seems to be conversant and cooperative. However her memory clearly is poor. Appears to be demonstrating an acute delirium/ encephalopathy likely related to underlying pneumonia and critical illness. She is able to visit with her family members in the dining area (observed after I saw her in her room). She is able to feed herself adequately. We will see how therapy goes. I think it is safe to proceed with therapy at the present time in view of her underlying medical conditions. However she will be monitored carefully. Hemoglobin is low at 7.9 g percent which apparently is somewhat chronic.
--- NOTE | 2017-04-25 08:18 | Consult Note ---
Consult Information - Data of Consult Consult date: 04/25/17 Requesting Physician: Rell Medina MD Primary Care Provider: Dr. Abi Lopez Family Provider: Dr. Abi Lopez - Consult Narrative Reason for consult: Medical management of chronic health problems History of present illness: Patient is an 87 yo female who was initially admitted to the [facility] in [place] on 04/14/2017 with community-acquired pneumonia. She was initially on IV Rocephin and Azithromycin, and was changed to IV Vancomycin on . She continued to have a decline in her respiratory status, despite BiPAP and was transferred to [facility] where she was admitted to the CCU on 04/22/2017 by the hospitalist service. Patient was noted to have hypercapnic respiratory failure with arterial blood gases on the day of admission here revealing a pH of 7.3, PCO2 70 and PO2 95. She also was noted to have community-acquired pneumonia with an infiltrate in the left lower lung. On admission to [facility], cefipime was added and vanco was continued. Dr. Rowan was consulted and recommended BiPAP. Patient has chronic diagnoses of chronic obstructive pulmonary disease, obstructive sleep apnea as well as diabetes mellitus and morbid obesity. She normally has been on 4L oxygen at home but has displayed respiratory failure, acute on chronic by virtue of worsening PCO2 levels. She states that she does use her nasal CPAP all night every night at home. Today she states she "is fine." She is feeling well and has done well with therapy. Her son reports some confusion this morning when she woke up, but that has improved. Last BM was several days ago. Appetite is good. Past Medical History Medical History COPD Hypertension Chronic kidney disease- Baseline [employer]- 1.6 Hyperlipidemia GERD Hypotension Neuropathy History of stroke Anemia Type II diabetes Vitamin B deficiency Morbid obesity Chronic oxygen dependence-4 liters Prosthetic R eye Surgical History: Spinal fusion. Right knee replacement. Cardiac stent placement. Right shoulder surgery. Hysterectomy. 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 Brother - age 65 "natural causes" Sister - age 65 "natural causes" Family History Updates: updated - Social History Smoking status: Never smoker Substance use type: does not use Alcohol intake frequency: does not drink Housing: apartment (attached to hospital) Household members: none Current occupational status: retired Previous occupational history: homemaker Social history: PCP - Dr Abi Lopez in [place], [place] <1 yr ago. Lives in [place] alone, but with family close. Review of Systems All systems PM: 10-point ROS was reviewed, no additional remarkable complaints except - Respiratory Respiratory: Present: dyspnea (improving) - Neurological Neurological: Present: weakness Medications Home Medications Medication Instructions Recorded Confirmed Type Albuterol/Ipratropium [Duoneb] 1 unit AEROSOL QID 04/22/17 04/22/17 History Aspirin 1 tab PO DAILY 04/22/17 04/22/17 History Atorvastatin [Lipitor] 1 tab PO HS 04/22/17 04/22/17 History Clopidogrel [Plavix] 1 tab PO DAILY 04/22/17 04/22/17 History Gabapentin [Neurontin] 600 mg PO TID 04/22/17 04/22/17 History Levothyroxine Sodium [Levo-T] 150 mcg PO DAILY 04/22/17 04/22/17 History Losartan [Cozaar] 50 mg PO DAILY 04/22/17 04/22/17 History Magnesium Oxide [Magox 400] 400 mg PO BID 04/22/17 04/22/17 History Niacin 500 mg PO BID 04/22/17 04/22/17 History Oxybutynin Chloride 5 mg PO DAILY 04/22/17 04/22/17 History Pantoprazole Sodium [Protonix] 40 mg PO DAILY 04/22/17 04/22/17 History Sitagliptin Phosphate [Januvia] 50 mg PO DAILY 04/22/17 04/22/17 History Venlafaxine HCl [Venlafaxine HCl 1 cap PO BID 04/22/17 04/22/17 History ER] guaiFENesin [Mucinex] 600 mg PO BID 04/22/17 04/22/17 History Allergies Allergy/AdvReac Type Severity Reaction Status Date / Time levofloxacin [From Levaquin] Allergy Rash Verified 04/24/17 16:40 Exam Vital Signs: Temperature 97.9 F 04/24/17 23:17 Pulse Rate 66 04/25/17 00:51 Respiratory Rate 18 04/25/17 04:56 Blood Pressure 158/85 H 04/24/17 23:17 Pulse Oximetry 91 04/25/17 04:56 Height/Weight/BMI: Height 1.6 m Weight 129 kg Body Mass Index 50.3 - Constitutional Present: no acute distress, well nourished, well developed, obese - Routine HEENT Exam Head: Present: normocephalic, atraumatic - Routine Neck Exam Present: supple. Absent: lymphadenopathy, thyromegaly Comments: central line - Routine Respiratory Exam Present: decreased breath sounds, CTA bilaterally, distant breath sounds. Absent: wheezes - Routine Cardiovascular Exam Present: RRR. Absent: murmur - Routine Abdominal Exam Present: soft, normoactive bowel sounds, non distended. Absent: tenderness - Routine Extremities Exam Present: no edema, normal capillary refill - Routine Skin Exam Present: dry, warm - Routine Neurological Exam Present: alert, oriented X3, moving all extremities - Routine Psychiatric Exam Present: normal affect, cooperative Results - Labs CBC & Chem 7: 04/25/17 04:15 04/25/17 04:15 Assessment and Plan Assessment and Plan: Assessment Hypercapnic respiratory failure- pCO2- 75 (04/22) CAP COPD Chronic hypoxic respiratory failure - chronically on 4L O2 RED - CPAP at night Hypertension Stage III Chronic kidney disease Hyperlipidemia GERD Hypotension Neuropathy History of stroke Anemia Type II diabetes Vitamin B deficiency Morbid obesity with BMI 50.8 Prosthetic R eye Plan Agree with IRU placement for further strengthening. Appreciate consult to hospitalist service for medical management. BP's improving 136/75 this am - continue to monitor Convert IV steroids to prednisone 40mg BID with meals. Resume home Januvia for diabetes. Continue SSI. Expect BS's to improve with decrease in steroid dosing Had MOM this am for bowel motivation. Start bladder retraining in hopes to get Stanley out by evening. Care to return to patient's PCP, Dr. Abi Lopez, upon discharge.. DVT Prophylaxis: SCD's Resuscitation Status: Do Not Resuscitate - Physician Narrative Physician: Romero Sepulveda MD Narrative: Date: 04/25/17 Time: 1909 Have independently interviewed and examined pt. Chart reviewed. Case discussed with my PA. Care plan developed with my supervision; agree with above. Admitted to IRU for restorative therapy following pneumonia with respiratory failure. Doing well this evening. Had good work out with therapy. Reports being able to walk in halls. Strength making improvements. Breathing feels stable-not having increasing cough/congestion or pain with breathing. Eating well. No nausea or ab pain. Not having f/c. Lungs: decreased air movement, no distress CV: regular AB: soft obese nt/nd MSE: awake alert appropriate Plan: Agree with admission to [facility] IRU to maximize functional status. Change Solu -Medrol to Prednisone 40mg BID - likely decrease to 40mg daily tomorrow; taper off as able. Will continue with Cefepime for antimicrobial coverage, likely able to discontinue Vancomycin in near future. Patient has home CPAP - in discussion with Dr Rowan (pul), looking at transitioning to home ventilator at discharge due to chronic hypercapnic respiratory failure. Continue neb treatment and supplemental O2. Restart Januvia. Encourage work with therapy. Medically stable for IRU floor activities. Hospital Course Summary Disclaimer: The visit summary below is not to be considered part of the above Progress Note.
[2017-04-25] MEDS: CLOPIDOGREL 75 MG TABLET PO SCH (09:01)
[2017-04-25] MEDS: LOSARTAN 50 MG TABLET PO SCH (09:01)
[2017-04-25] MEDS: SALINE FLUSH 10ml SYRINGE IV SCH ×2 (09:02→21:01)
[2017-04-25] MEDS: ASPIRIN 325 MG TABLET PO SCH (09:03)
--- NOTE | 2017-04-25 09:18 | Pharmacy Consult-Antibiotics ---
Pharmacy Consult-Vancomycin - Laboratory Information WBC 8.5 T/MM3 (4.5-11.0) D 04/25/17 04:15 BUN 54.0 MG/DL (7-17) H* 04/25/17 04:15 Creatinine 1.3 MG/DL (0.7-1.2) H D 04/25/17 04:15 Vancomycin Trough 21.60 UG/ML (15-20) H* 04/25/17 04:14 - Consult Information VANCOMYCIN CONSULT: ED is an 87 yo female initially admitted to the hospital for community acquired pneumonia. She has been admitted to IRU for COPD and disuse myopathy. The Vancomycin was continued from the hospital visit. Current Renal Function: S Cr = 1.3 mg/dl. Estimated Cr Cl ~ 41 mL/min. Vancomycin trough = 21.60 mL/min. WBC's = 8.5 T/mm3 24-h Tmax = 97.9 degrees F I changed the Vancomycin to 1,250 mg IV every 36 hours, starting 1200 today (). Will continue to monitor and adjust regimen to maintain therapeutic levels. Thank you for the Vancomycin Dosing Protocol, Paulo Camacho, Pharmacist.
[2017-04-25] MEDS: SITAGLIPTIN 100 MG TABLET PO SCH (12:57)
--- NOTE | 2017-04-25 16:12 | IRU Plan of Care ---
[facility] Overall Plan of Care - Date Date: 04/25/17 - Patient Impairments (1) Myopathy Code(s): G72.9 - Myopathy, unspecified Status: Acute Classification: Present on IRF Admission, IRF Tx That Should Address Diagnosis, Diagnosis Requiring Medical Follow Up (2) Acute encephalopathy Code(s): G93.40 - Encephalopathy, unspecified Status: Acute Classification: Present on IRF Admission, IRF Tx That Should Address Diagnosis, Diagnosis Requiring Medical Follow Up (3) Hypertension Qualifiers: Hypertension type: essential hypertension Qualified Code(s): I10 - Essential (primary) hypertension Code(s): I10 - Essential (primary) hypertension Status: Acute Classification: Present on IRF Admission, IRF Tx That Should Address Diagnosis, Diagnosis Requiring Medical Follow Up (4) Acute on chronic respiratory failure with hypercapnia Code(s): J96.22 - Acute and chronic respiratory failure with hypercapnia Status: Acute Classification: Present on IRF Admission, IRF Tx That Should Address Diagnosis, Diagnosis Requiring Medical Follow Up (5) CAP (community acquired pneumonia) Qualifiers: Laterality: left Lung location: lower lobe of lung Qualified Code(s): J18.1 - Lobar pneumonia, unspecified organism Code(s): J18.9 - Pneumonia, unspecified organism Status: Acute Classification: Present on IRF Admission, IRF Tx That Should Address Diagnosis, Diagnosis Requiring Medical Follow Up (6) Obesity hypoventilation syndrome Code(s): E66.2 - Morbid (severe) obesity with alveolar hypoventilation Status : Chronic Classification: Present on IRF Admission, IRF Tx That Should Address Diagnosis, Diagnosis Requiring Medical Follow Up - Relevant Changes Relevant Changes: No Reviewed: I have reviewed the patient's information and concur with the finding and results of the pre-admission screen. Certification: I certify the patient for rehabilitation. - Medical Prognosis Medical Prognosis: Good Vital Signs: Last Vital Signs Temp 98.4 F 04/25/17 16:00 Pulse 81 04/25/17 16:00 Resp 20 04/25/17 16:00 BP 147/87 H 04/25/17 16:00 Pulse Ox 96 04/25/17 16:00 - Anticipated Interventions Anticipated Interventions: The patient requires inpatient IRF care for PT, OT, and/or ST for residuals remaining from community acquired pneumonia with acute on chronic hypercapnic respiratory failure resulting in prolonged immobilization and disuse myopathy resulting in muscular weakness and strength deficits. Strength Deficits: Right Lower Extremity, Left Lower Extremity - Current Functional Status Failed Alternative Therapy: Arrived from Acute Care Patient Requires: The patient requires oversight by rehabilitation physician to manage their rehabilitation treatment plan and multidisciplinary approach to care that can only be provided in an IRF and requires a multidisciplinary approach to care, provided by professional PTs, OTs, STs, rehabilitation nurses, and may require STs, dieticians, and RTS. This is not available in lesser levels of care. Physical Therapy Minutes: 90 Occupational Therapy Minutes: 90 Therapy: The patient is to receive therapy at least 5 days a week. - Anticipated LOS/Outcomes Anticipated Functional Outcome: iit is anticipated the patient will be able to return to her apartment with use of a front-wheeled walker for ambulation within her apartment. It is anticipated she will be able to perform her activities of daily living in her apartment. She will then be able to travel to the adjacent hospital via motorized wheelchair for at least 1 meal daily. Anticipated Length of Stay (days): 10 Anticipated DC Destination: Home, Self Care, Home Health Service Home Safety Plan: The patient will be provided with the development of a Home Safety Plan for return to a home or home-like environment and and to ensure safety post discharge. - Plan to Avoid Complications Barriers to Attaining Goals: Weakness, Balance, Endurance, Comprehension, Medical Limitation Plan to Avoid Complications: The patient cannot receive this care in a lesser intensive setting such as Penitentiary or Outpatient Therapy due to the patient requiring the following : because of the patient's multiple medical problems including obesity hypoventilation syndrome with acute on chronic respiratory failure and community -acquired pneumonia, the patient is very complex and requires a multidisciplinary approach to her recovery. She requires 24-hour rehabilitation nursing monitoring of her mental status, oxygen saturations, blood pressures, as well as administration of intravenous antibiotics and other medications as needed including corticosteroids. She requires medical supervision for these complex problems in addition to PT and OT and possibly speech therapy. .
[2017-04-25] MEDS: PredniSONE 20 MG TABLET PO SCH (17:48)
[2017-04-25] MEDS: ATORVASTATIN 40 MG TABLET PO SCH (20:59)
[2017-04-25] MEDS: SALINE FLUSH 10ml SYRINGE IVF PRN (23:32)
[2017-04-26] MEDS: BUDESONIDE INH.SOLN 0.5mg/2ml NEB AEROSOL SCH ×2 (05:03→21:47)
[2017-04-26] MEDS: ALBUTEROL/IPRATROPIUM 2.5mg-0.5mg/3ml NEB AEROSOL SCH ×4 (05:04→21:47)
[2017-04-26] MEDS: LEVOTHYROXINE 150 MCG TABLET PO SCH (05:59)
[2017-04-26] MEDS: INSULIN REGULAR, HUMAN 100 UNIT/ML INJECTION SQ PRN ×4 (05:59→20:05)
[2017-04-26] MEDS: CEFEPIME 1 GM in NS 100 ML IV SCH ×3 (07:30→22:50)
[2017-04-26] MEDS: ASPIRIN 325 MG TABLET PO SCH (09:09)
[2017-04-26] MEDS: LOSARTAN 50 MG TABLET PO SCH (09:10)
[2017-04-26] MEDS: SITAGLIPTIN 100 MG TABLET PO SCH (09:10)
[2017-04-26] MEDS: CLOPIDOGREL 75 MG TABLET PO SCH (09:11)
[2017-04-26] MEDS: PredniSONE 20 MG TABLET PO SCH ×2 (09:11→18:41)
[2017-04-26] MEDS: SALINE FLUSH 10ml SYRINGE IV SCH ×2 (10:50→20:07)
[2017-04-26] MEDS: SALINE FLUSH 10ml SYRINGE IVF PRN ×2 (10:50→22:51)
[2017-04-26] MEDS: ATORVASTATIN 40 MG TABLET PO SCH (20:06)
[2017-04-27] MEDS: ALBUTEROL/IPRATROPIUM 2.5mg-0.5mg/3ml NEB AEROSOL SCH ×4 (05:12→22:10)
[2017-04-27] MEDS: BUDESONIDE INH.SOLN 0.5mg/2ml NEB AEROSOL SCH ×2 (05:12→22:10)
[2017-04-27] MEDS: INSULIN REGULAR, HUMAN 100 UNIT/ML INJECTION SQ PRN (06:27)
[2017-04-27] MEDS: LEVOTHYROXINE 150 MCG TABLET PO SCH (06:28)
[2017-04-27] MEDS: CEFEPIME 1 GM in NS 100 ML IV SCH ×3 (06:29→22:52)
--- NOTE | 2017-04-27 08:50 | Progress Note ---
- Date 04/27/17 Subjective: Patient prefers to go by "Bao" (pronounced Lisa". She was still in bed but awake ; she was on room air and asked where her oxygen was b/c she should be on 4L. She complains of knee pain - had a right knee replacement 10 years ago and her left leg is painful from recent minor trauma. She denies SOA or chest pain, abdominal pain or GI complaints. She denies constipation. Appetite has been good. No dizziness or lightheadedness. She has been A&O x3 but forgetful at times. Objective Vital signs: Temperature 98.8 F 04/26/17 20:10 Pulse Rate 55 L 04/27/17 00:00 Respiratory Rate 18 04/27/17 05:12 Blood Pressure 179/98 H 04/26/17 20:10 Pulse Oximetry 97 04/27/17 05:12 Height/Weight/BMI: Height 1.6 m Weight 130.7 kg Body Mass Index 50.3 - Constitutional Present: no acute distress, well nourished, well developed, morbidly obese - Routine HEENT Exam Head: Present: normocephalic Eye: Present: PERRL. Absent: conjunctival icterus, scleral injection ENT: Present: mucous membranes moist - Routine Respiratory Exam Comments: coarse breath sounds throughout - Routine Cardiovascular Exam Present: RRR, S1, S2 - Routine Abdominal Exam Present: soft, normoactive bowel sounds, non distended, non tender - Routine Extremities Exam Comments: Both hands are edematous (improving per pt report) Trace edema to BLE - Routine Skin Exam Present: dry, warm, ecchymosis (fading ecchymosis to LLE with healing abrasion) - Routine Neurological Exam Present: alert, oriented X3, moving all extremities, normal speech - Routine Psychiatric Exam Present: normal affect, normal thought process, cooperative Results - Labs CBC & Chem 7: 04/27/17 05:10 04/27/17 05:10 Assessment and Plan Assessment and Plan: Assessment Hypercapnic respiratory failure- pCO2- 75 (04/22) CAP COPD Chronic hypoxic respiratory failure - chronically on 4L O2 RED - CPAP at night Hypertension Stage III Chronic kidney disease Hyperlipidemia GERD Hypotension Neuropathy History of stroke Anemia Type II diabetes Vitamin B deficiency Morbid obesity with BMI 50.8 Prosthetic R eye Plan DM2 - BGM are uncontrolled. Will change accucheck timing to ACHS and increase SSI to high corrective regimen. Check hgb A1c. She is only on Januvia PNA - DC vanco (completed 7-day course from 04/20/17-04/27/17). Will DC cefepime on 04/28/17, which will complete a 7-day course. COPD - decrease Prednisone 40 mg to daily dosing rather than BID. HTN - uncontrolled. Add Norvasc 5 mg daily. Anemia - hgb imp to 8.4. iron studies pending. CKD - stable; cr under baseline of 1.6. DC Stanley catheter. Resuscitation Status: Do Not Resuscitate - Physician Narrative Narrative: Date: 04/27/17 Time: 0847 Hospital Course Summary Disclaimer: The visit summary below is not to be considered part of the above Progress Note. Hospital Course: 04/27/17 DM2 - BGM are uncontrolled. Will change accucheck timing to ACHS and increase SSI to high corrective regimen. Check hgb A1c. She is only on Januvia PNA - DC vanco (completed 7-day course from 04/20/17-04/27/17). Will DC cefepime on 04/28/17, which will complete a 7-day course. COPD - decrease Prednisone 40 mg to daily dosing rather than BID. HTN - uncontrolled. Add Norvasc 5 mg daily. Anemia - hgb imp to 8.4. iron studies pending. CKD - stable; cr under baseline of 1.6. DC Stanley catheter.
[2017-04-27] MEDS: SITAGLIPTIN 100 MG TABLET PO SCH (09:06)
[2017-04-27] MEDS: CLOPIDOGREL 75 MG TABLET PO SCH (09:07)
[2017-04-27] MEDS: LOSARTAN 50 MG TABLET PO SCH (09:08)
[2017-04-27] MEDS: ASPIRIN 325 MG TABLET PO SCH (09:09)
[2017-04-27] MEDS: AMLODIPINE 5 MG TABLET PO SCH (09:15)
[2017-04-27] MEDS: INSULIN ASPART 100unit/ml INJECTION SQ PRN ×3 (12:28→20:03)
[2017-04-27] MEDS: SALINE FLUSH 10ml SYRINGE IV SCH ×2 (12:30→22:08)
--- NOTE | 2017-04-27 14:07 | IRU Progress Note ---
- Subjective/Serverity of Illness Date: 04/27/17 Bao is substantially improved today compared to a couple days ago when I saw her. She is much less confused and much less tremulous. Corticosteroid dose has been reduced. She does report some dyspnea with activity but denies much in the way of a cough. States it is only rare the present time and is not producing any sputum. Primarily she does not like the internal jugular line because it is hurting which it has since the beginning she states. I told her that we need to leave it in until the antibiotics have completed. Have reviewed hospitalist notes. Patient will stop vancomycin today and continue cefepime another couple of days. She is improving with regard to infection. She is much more well oriented at the present time. She knows my name. She is much less tremulous as noted above. Her appetite is good. Brief therapy update: She is just getting started with occupational therapy. Saw them a couple days ago. Cognition was a significant barrier at that time. However she was cooperative with them. With regard to physical therapy she requires contact-guard assistance for bed/chair/wheelchair transfers and is able to walk over 70 feet with a front-wheeled walker with maximum assistance. Update on medical issues were actively managing and monitorin. 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 Based on physical therapy notes, she is improving however. 2. Community-acquired pneumonia: Vancomycin is being discontinued. Cefepime will continue another day or so. Clinically she is stable and without fever. 3. Acute on chronic hypercapnic respiratory failure: Continues to require supplemental oxygen. Does have some dyspnea but only rare cough she states. 4. Morbid obesity with obesity hypoventilation syndrome. No change with regard to this diagnosis. 5. Significant anemia of unclear etiology with macrocytosis. Iron studies are ordered and pending. Hemoglobin is stable to improved. 6. Hypertension: The pressures are extremely difficult to assess due to her morbid obesity. They are measuring high but it is difficult to know if these are accurate or not. Exam Vital Signs: Temperature 98.2 F 04/27/17 08:00 Pulse Rate 78 04/27/17 08:00 Respiratory Rate 18 04/27/17 11:46 Blood Pressure 187/106 H 04/27/17 08:00 Pulse Oximetry 97 04/27/17 11:46 Height/Weight/BMI: Height 1.6 m Weight 130.7 kg Body Mass Index 50.3 - Constitutional Present: well nourished, well developed, morbidly obese, cooperative Comments: Seems to be much calmer, less tremulous and much more well oriented compared to 2 days ago. - Routine HEENT Exam Head: Present: normocephalic Eye: Present: EOMI ENT: Present: mucous membranes moist, dentition normal - Routine Neck Exam Present: supple Comments: IJ site not inflamed. Does complain of discomfort there but has since placement. - Routine Respiratory Exam Present: decreased breath sounds (has reduced breath sounds bilaterally.), crackles (very mild crackles present.). Absent: wheezes - Routine Cardiovascular Exam Present: RRR, S1, S2. Absent: murmur, S3, S4 - Routine Abdominal Exam Present: soft, normoactive bowel sounds, non distended. Absent: tenderness - Routine Extremities Exam Present: edema - Routine Skin Exam Present: dry, warm Comments: No new rash no skin lesions are identified. - Routine Neurological Exam Present: alert, oriented X3 (seems to be reasonably well oriented at present although obviously has some cognitive deficits at times.), CN II-XII intact, motor deficit (lower extremity weakness proximal muscles again noted.), moving all extremities, normal speech. Absent: facial asymmetry - Routine Psychiatric Exam Present: normal affect, cooperative. Absent: good insight, good judgment IRU A/P (1) Myopathy Current visit: Yes Status: Acute Description he started with therapy. Working on strengthening the proximal muscles with regard to transfers and ambulation. Some progress noted. (2) Acute encephalopathy Current visit: Yes Status: Resolved Her acute confusion/delirium appears to have resolved. May have some underlying cognition deficits but overall she is more oriented today. (3) Hypertension Qualifiers: Hypertension type: essential hypertension Qualified Code(s): I10 - Essential (primary) hypertension Current visit: Yes Status: Acute Blood pressures are very difficult to assess secondary to her morbid obesity. There are measuring high but I am not certain of these are accurate. (4) Acute on chronic respiratory failure with hypercapnia Current visit: No Status: Acute She continues to require supplemental oxygen to maintain saturations above 90%. (5) CAP (community acquired pneumonia) Qualifiers: Laterality: left Lung location: lower lobe of lung Qualified Code(s): J18.1 - Lobar pneumonia, unspecified organism Current visit: No Status: Acute Vancomycin is concluding. Cefepime will run another day or so. Symptomatically she is stable without evidence of active infection. She is afebrile. (6) Obesity hypoventilation syndrome Current visit: No Status: Chronic DVT Prophylaxis: SCD's Resuscitation Status: Do Not Resuscitate - Course Hospital Course: Rell Medina MD: 04/25/17 08:19 Patient seems to be more tremulous and confused today. Hemoglobin 7.9 g percent. Getting started with therapy. 04/27/17 14:11 She is working with therapy. Able to ambulate over 70 feet with front-wheeled walker Continues to require additional oxygen Antibiotics are being tapered off. Tremulousness is improved with reduced steroid dose. Cognition deficits noted but acute encephalopathy likely resolved. - Interventions to Obtain Goals PT Treatment Plan: Balance/Proprioception, Functional Activities, Gait Training , Patient/Family Education, Therapeutic Exercise OT Treatment Plan: ADL (Basic Care), Balance Training, IADL, Ther. Exercise for ADL Goals Progress/Modifications: Time spent with patient and on floor reviewing data and documentin min Barriers to dismissal: Endurance, strength, balance, dyspnea/pulmonary symptoms Medical decision-making: I reassessed her from a global standpoint medically speaking. She is much improved with regard to orientation and tremulousness. I believe it is safe to continue therapy at the present time. She is making slow progress. Able to ambulate over 70 feet with a front-wheeled walker. Does display significant proximal muscle weakness consistent with disuse myopathy. Medically she is improving and we appreciate the assistance of the hospitalist service. Continues to require supplemental oxygen.
[2017-04-27] MEDS: SALINE FLUSH 10ml SYRINGE IVF PRN (16:00)
[2017-04-27] MEDS: ACETAMINOPHEN 325 MG TABLET PO PRN (19:26)
[2017-04-27] MEDS: ATORVASTATIN 40 MG TABLET PO SCH (22:07)
[2017-04-28] MEDS: CEFEPIME 1 GM in NS 100 ML IV SCH ×2 (06:12→14:41)
[2017-04-28] MEDS: ACETAMINOPHEN 325 MG TABLET PO PRN ×2 (06:13→22:56)
[2017-04-28] MEDS: LEVOTHYROXINE 150 MCG TABLET PO SCH (06:13)
[2017-04-28] MEDS: BUDESONIDE INH.SOLN 0.5mg/2ml NEB AEROSOL SCH ×2 (06:42→22:17)
[2017-04-28] MEDS: ALBUTEROL/IPRATROPIUM 2.5mg-0.5mg/3ml NEB AEROSOL SCH ×4 (06:42→22:17)
[2017-04-28] MEDS: SALINE FLUSH 10ml SYRINGE IVF PRN (08:41)
[2017-04-28] MEDS: SALINE FLUSH 10ml SYRINGE IV SCH ×2 (08:41→22:08)
[2017-04-28] MEDS: LOSARTAN 50 MG TABLET PO SCH (08:42)
[2017-04-28] MEDS: ASPIRIN 325 MG TABLET PO SCH (08:42)
[2017-04-28] MEDS: SITAGLIPTIN 100 MG TABLET PO SCH (08:42)
[2017-04-28] MEDS: AMLODIPINE 5 MG TABLET PO SCH (08:42)
[2017-04-28] MEDS: CLOPIDOGREL 75 MG TABLET PO SCH (08:42)
[2017-04-28] MEDS: PredniSONE 20 MG TABLET PO SCH (08:43)
--- NOTE | 2017-04-28 10:52 | IRU Progress Note ---
- Subjective/Serverity of Illness Date: 04/28/17 Bao was interviewed and examined in the inpatient rehabilitation unit. Her son is also present and I discussed with him. Overall she is improving and gaining more strength. I clarified with them that at home she does use a front-wheeled walker in her apartment but uses a motorized Hoveround to get to her meal at the hospital which is adjacent to her apartment indoors. I also discussed with the therapist indicates that she is nearing the ability to be able to do that. She does report some dyspnea with activity. Does not have much in the way of a cough. With regard to the pneumonia, vancomycin was discontinued yesterday and cefepime completes after today I believe. She remains afebrile. There is no sputum. Denies any chest pain. Brief therapy update: For occupational therapy she is demonstrating increased strength and ability to perform ADLs. However she requires encouragement to put forth more effort. She is using assistive devices in terms of a sock sleeping car service attendant etc. For physical therapy she is walking 76 feet with standby assist with a front-wheeled walker. Does have easy fatigability due to deconditioning and her disuse myopathy. Update on medical issues were actively managing and monitorin. Disuse myopathy. Improving with regard ambulatory ability and transfers. 2. Community-acquired pneumonia: Remains afebrile and without symptoms. Lungs sound reasonably clear. Cefepime stops after today. 3. Acute on chronic hypercapnic respiratory failure: Does have some dyspnea with activity. Is using supplemental oxygen. 4. Morbid obesity with obesity hypoventilation syndrome. No change with regard to this diagnosis. 5. Significant anemia of unclear etiology with macrocytosis. Iron studies remain pending. 6. Hypertension: Once again her blood pressures are reviewed but extremely difficult to assess because of her morbid obesity. 7. Diabetes mellitus type 2: She is on a sliding insulin scale. Her blood sugars are running a bit high at 250-300. Exam Vital Signs: Temperature 98.6 F 04/28/17 08:00 Pulse Rate 64 04/28/17 08:00 Respiratory Rate 22 04/28/17 08:00 Blood Pressure 153/67 H 04/28/17 08:00 Pulse Oximetry 94 04/28/17 08:00 Height/Weight/BMI: Height 1.6 m Weight 130.6 kg Body Mass Index 50.3 - Constitutional Present: mild distress (dyspnea with activity. Patient was observed while ambulating with a front-wheeled walker.), well nourished, well developed, morbidly obese, cooperative - Routine HEENT Exam Head: Present: normocephalic, cushingoid faces Eye: Present: EOMI ENT: Present: mucous membranes moist, dentition normal - Routine Neck Exam Present: supple - Routine Respiratory Exam Present: decreased breath sounds, prolonged expiratory phase, crackles ( occasional very fine crackles noted bilaterally. Overall lungs are reasonably clear with diminished breath sounds.). Absent: wheezes - Routine Cardiovascular Exam Present: RRR, S1, S2. Absent: murmur - Routine Abdominal Exam Present: soft, normoactive bowel sounds, non distended. Absent: tenderness - Routine Extremities Exam Present: edema - Routine Skin Exam Present: dry, warm, ecchymosis - Routine Neurological Exam Present: alert, oriented X3, CN II-XII intact - Routine Psychiatric Exam Present: normal affect, cooperative, anxious Results IRU - Labs Labs: I reviewed her laboratory and other providers notes. IRU A/P (1) Myopathy Current visit: Yes Status: Acute Slow progress with regard to strengthening. She is able to ambulate further a 76 feet. Working on transfers as well and order to allow her to return to her previous level of functioning. (2) Acute encephalopathy Current visit: Yes Status: Resolved (3) Hypertension Qualifiers: Hypertension type: essential hypertension Qualified Code(s): I10 - Essential (primary) hypertension Current visit: Yes Status: Acute Blood pressures remain variable and difficult to assess due to her obesity and edema. (4) Acute on chronic respiratory failure with hypercapnia Current visit: No Status: Acute Continues to require supplemental oxygen at 4 L/m. (5) CAP (community acquired pneumonia) Qualifiers: Laterality: left Lung location: lower lobe of lung Qualified Code(s): J18.1 - Lobar pneumonia, unspecified organism Current visit: No Status: Acute She is asymptomatic. She is finishing up her antibiotics after today. She is afebrile. Only rare cough. (6) Obesity hypoventilation syndrome Current visit: No Status: Chronic DVT Prophylaxis: SCD's Resuscitation Status: Do Not Resuscitate - Course Hospital Course: Rell Medina MD: 04/25/17 08:19 Patient seems to be more tremulous and confused today. Hemoglobin 7.9 g percent. Getting started with therapy. 04/27/17 14:11 She is working with therapy. Able to ambulate over 70 feet with front-wheeled walker Continues to require additional oxygen Antibiotics are being tapered off. Tremulousness is improved with reduced steroid dose. Cognition deficits noted but acute encephalopathy likely resolved. 04/28/17 10:54 She is progressing with therapy and is getting stronger. Ambulate an 76 feet with front-wheeled walker. Dyspnea with activity and weakness secondary to deconditioning. Blood sugars remain elevated. - Interventions to Obtain Goals PT Treatment Plan: Balance/Proprioception, Functional Activities, Gait Training , Patient/Family Education, Therapeutic Exercise OT Treatment Plan: ADL (Basic Care), Balance Training, IADL, Ther. Exercise for ADL Goals Progress/Modifications: Time spent with patient and on floor reviewing data and documentin min Barriers to dismissal: Weakness, motivation, dyspnea/respiratory issues Medical decision-making: Patient continues to be very complex with regard to her obesity hypoventilation syndrome along with acute on chronic respiratory failure and recent diagnosis of pneumonia resulting in her disuse myopathy. She is deaf we making gains with regard to ambulatory distance and strength. She will need to be able to transfer from sit to stand with use of a walker only in order for her to get back to her apartment. She is nearing that time at present. Her antibiotics are tapering off today. Continues to require supplemental oxygen. Her knees also hurt which are a barrier to her progress.
--- NOTE | 2017-04-28 17:04 | Pulmonology Consult Note ---
History of Present Illness Consult date: 04/28/17 Reason for consult: other (respiratory failure) History of present illness: HPI: Ms. Carson is 87-year-old female from [place], [place]. The patient was initially admitted to the [facility] in [place] on 05/2017 with community-acquired pneumonia. Patient was noted to have hypercapnic respiratory failure with arterial blood gases on the day of admission here in [place] revealing a pH of 7.3, PCO2 70 and PO2 95. She also was noted to have community-acquired pneumonia with an infiltrate in the left lower lung. She appeared to have fluid overload. She is on a home BIPAP in the alf. The mode and settings are not clear to me. Patient has chronic diagnoses of chronic obstructive pulmonary disease, obstructive sleep apnea as well as diabetes mellitus and morbid obesity. We do not have supporting records to document her respiratory problems. She normally has been on oxygen at home but has displayed respiratory failure, acute on chronic by virtue of worsening PCO2 levels. She states that she does use her nasal CPAP/BIPAP all night every night at home. She reports that she uses oxygen 24 hours daily at home ever since her right knee was replaced. She seems to tolerate her PAP mask very well. He recommended home BiPAP ST since she has failed the use of CPAP. 2. Obesity hypoventilation syndrome, 3. Obstructive sleep apnea proven by sleep study. At the present time she continues on intravenous Lasix, Acapella treatments Solu- Medrol and antibiotics. It is also noted that she has a calcified mediastinal mass or lymph node which may require further evaluation as an outpatient. [facility] Patient Stated Medical History Peripheral Neuropathy Yes Cataracts Yes: removed bilat., prosthetic right eye Other Cardiology Yes: hx of pericardial effusion Chronic Obstructive Pulmonary Yes Disease (COPD) Pneumonia Yes Sleep Apnea Yes Diabetes Mellitus Type 2 Yes Hx Urinary Tract Infection Yes Shingles Yes: 8 yrs ago Surgical History: Spinal fusion. Right knee replacement. Cardiac stent placement. Right shoulder surgery. Hysterectomy. 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 In addition a brother and a sister are both at age 65 also of "natural causes." She does have a twin sister who is living and reportedly healthy. - Social History Smoking status: Never smoker Substance use type: does not use Alcohol intake: never Alcohol intake frequency: does not drink Housing: apartment Household members: none Current occupational status: retired Current residence: Apartment/Private Home Social history: She lived with her in an apartment connected to the hospital until 10 months ago. At that time her and she has moved to a smaller apartment also connected to the hospital. The patient has not really worked outside the home but did work raising their 3 children. Her worked as a salesman. She has lived in [place] her entire life. Review of Systems All systems: reviewed and no additional remarkable complaints except as stated PFSH Patient Stated Medical History Peripheral Neuropathy Yes Cataracts Yes: removed bilat., prosthetic right eye Other Cardiology Chronic Obstructive Pulmonary Yes Disease (COPD) Pneumonia Yes Sleep Apnea Yes Diabetes Mellitus Type 2 Yes Constipation Yes Hx Incontinence Yes Hx Urinary Tract Infection Yes Shingles Surgical History: Spinal fusion. Right knee replacement. Cardiac stent placement. Right shoulder surgery. Hysterectomy. 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 - Social History Smoking status: Never smoker Medications Home Medications Medication Instructions Recorded Confirmed Type Albuterol/Ipratropium [Duoneb] 1 unit AEROSOL QID 04/22/17 04/22/17 History Aspirin 1 tab PO DAILY 04/22/17 04/22/17 History Atorvastatin [Lipitor] 1 tab PO HS 04/22/17 04/22/17 History Clopidogrel [Plavix] 1 tab PO DAILY 04/22/17 04/22/17 History Gabapentin [Neurontin] 600 mg PO TID 04/22/17 04/22/17 History Levothyroxine Sodium [Levo-T] 150 mcg PO DAILY 04/22/17 04/22/17 History Losartan [Cozaar] 50 mg PO DAILY 04/22/17 04/22/17 History Magnesium Oxide [Magox 400] 400 mg PO BID 04/22/17 04/22/17 History Niacin 500 mg PO BID 04/22/17 04/22/17 History Oxybutynin Chloride 5 mg PO DAILY 04/22/17 04/22/17 History Pantoprazole Sodium [Protonix] 40 mg PO DAILY 04/22/17 04/22/17 History Sitagliptin Phosphate [Januvia] 50 mg PO DAILY 04/22/17 04/22/17 History Venlafaxine HCl [Venlafaxine HCl 1 cap PO BID 04/22/17 04/22/17 History ER] guaiFENesin [Mucinex] 600 mg PO BID 04/22/17 04/22/17 History Allergies Allergy/AdvReac Type Severity Reaction Status Date / Time levofloxacin [From Levaquin] Allergy Rash Verified 04/24/17 16:40 Exam Vital signs: Temperature 97.8 F 04/28/17 16:00 Pulse Rate 95 04/28/17 16:00 Respiratory Rate 18 04/28/17 16:52 Blood Pressure 128/75 04/28/17 16:00 Pulse Oximetry 90 04/28/17 16:00 - Constitutional no acute distress, obese - Routine HEENT Exam Head: Present: normocephalic, atraumatic Eye: Present: PERRL - Routine Neck Exam Present: supple - Routine Respiratory Exam Present: decreased breath sounds. Absent: accessory muscle use, wheezes - Routine Cardiovascular Exam Present: RRR - Routine Abdominal Exam Present: soft. Absent: guarding - Routine Extremities Exam Present: edema. Absent: cyanosis, clubbing - Routine Skin Exam Absent: cyanosis, rash - Routine Neurological Exam Absent: alert, oriented X3 Results - Laboratory Findings CBC and BMP: 04/27/17 05:10 04/27/17 05:10 Abnormal lab findings: Abnormal Labs 04/25/17 04/25/17 04/25/17 04:14 04:15 04:15 RBC 2.47 L Hgb 7.9 L Hct 26.0 L MCV 105.3 H MCHC 30.4 L RDW Std Deviation 51.1 H MPV 9.3 L Immature Gran % (Auto) Neut % (Auto) Lymph % (Auto) Lymph # (Auto) Abs Immat Gran (auto) Neutrophils % (Manual) 88.0 H Lymphocytes % (Manual) 10.0 L Lymphocytes # (Manual) 0.9 L Chloride 96 L Carbon Dioxide 35 H BUN 54.0 H* Creatinine 1.3 H D BUN/Creatinine Ratio 42 H Glucose 200 H Hemoglobin A1c Calculated Osmolality 285 H Calcium 10.8 H Vancomycin Trough 21.60 H* 04/27/17 04/27/17 04/27/17 05:10 05:10 05:10 RBC 2.57 L Hgb 8.4 L Hct 26.7 L MCV 103.9 H MCHC RDW Std Deviation MPV 9.0 L Immature Gran % (Auto) 0.6 H Neut % (Auto) 81.1 H Lymph % (Auto) 12.9 L Lymph # (Auto) 0.8 L Abs Immat Gran (auto) 0.04 H Neutrophils % (Manual) Lymphocytes % (Manual) Lymphocytes # (Manual) Chloride Carbon Dioxide 31 H BUN 52.0 H* Creatinine BUN/Creatinine Ratio 47 H Glucose 193 H Hemoglobin A1c 5.8 H Calculated Osmolality 281 H Calcium 10.5 H Vancomycin Trough Assessment and Plan (1) Acute on chronic respiratory failure with hypercapnia Status: Acute Assessment and plan: 7.39/89 on 04/22/17 She tolerates PAP therapy very well and reportedly had a PSG in the past demonstrating RED. We will need to get her current orders and settings. She has failed her current device and will now need a backup rate on her device due to her severe, chronic hypercapnia and recent exacerbation. Use of BIPAP ST will reduce her chance of hospitalization and . Current Visit: No (2) Obstructive sleep apnea Status: Acute Current Visit: No (3) Obesity hypoventilation syndrome Status: Chronic Current Visit: No - Time Spent With Patient Total time spent is greater than 50% in coordination of care (as documented) at patient's floor/unit and/or counseling patient: 25 - 35 minutes
[2017-04-28] MEDS: INSULIN ASPART 100unit/ml INJECTION SQ PRN ×2 (18:05→22:26)
[2017-04-28] MEDS: ATORVASTATIN 40 MG TABLET PO SCH (22:06)
[2017-04-29] MEDS: BUDESONIDE INH.SOLN 0.5mg/2ml NEB AEROSOL SCH ×2 (05:09→19:23)
[2017-04-29] MEDS: ALBUTEROL/IPRATROPIUM 2.5mg-0.5mg/3ml NEB AEROSOL SCH ×4 (05:09→19:23)
[2017-04-29] MEDS: LEVOTHYROXINE 150 MCG TABLET PO SCH (07:05)
[2017-04-29] MEDS: PredniSONE 20 MG TABLET PO SCH (09:19)
[2017-04-29] MEDS: SITAGLIPTIN 100 MG TABLET PO SCH (09:19)
[2017-04-29] MEDS: AMLODIPINE 5 MG TABLET PO SCH (09:20)
[2017-04-29] MEDS: SALINE FLUSH 10ml SYRINGE IV SCH ×2 (09:20→22:45)
[2017-04-29] MEDS: LOSARTAN 50 MG TABLET PO SCH (09:20)
[2017-04-29] MEDS: CLOPIDOGREL 75 MG TABLET PO SCH (09:20)
[2017-04-29] MEDS: ASPIRIN 325 MG TABLET PO SCH (09:22)
[2017-04-29] MEDS: INSULIN ASPART 100unit/ml INJECTION SQ PRN ×3 (11:09→23:04)
--- NOTE | 2017-04-29 11:17 | Pulmonology Progress Note ---
Subjective Principal diagnosis: Respiratory Failure Interval history: Pt currently sitting up in the WC, states her breathing is doing ok. Using bipap at [facility] but had issues last night with increased air leaks. Exam Vital signs: Temperature 97.9 F 04/29/17 08:00 Pulse Rate 78 04/29/17 08:00 Respiratory Rate 22 04/29/17 08:00 Blood Pressure 140/74 H 04/29/17 08:00 Pulse Oximetry 94 04/29/17 08:00 - Constitutional no acute distress, morbidly obese - Routine HEENT Exam Head: Present: normocephalic, atraumatic Eye: Present: EOMI, PERRL ENT: Present: mucous membranes moist - Routine Neck Exam Present: supple, full ROM, trachea midline - Routine Respiratory Exam Present: decreased breath sounds, crackles Comments: crackles bases - Routine Cardiovascular Exam Present: RRR, no murmur - Routine Abdominal Exam Present: soft, normoactive bowel sounds - Routine Extremities Exam Present: edema, non tender, full ROM - Routine Back/Spine/Pelvis Exam Back/Spine: Present: full ROM - Routine Skin Exam Present: intact, dry - Routine Neurological Exam Present: alert, oriented X3, CN II-XII intact - Routine Psychiatric Exam Present: normal affect, normal thought process Assessment and Plan - Assessment and Plan 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 Pt will need Bipap ST at dismissal for treatment of her Chronic Hypercapnic Respiratory failure as she has failed Cpap therapy. Recent pna, s/p cefepime on a/a QID and tolerating. Afebrile and no leukocytosis noted. - Time Spent With Patient Total time spent is greater than 50% in coordination of care (as documented) at patient's floor/unit and/or counseling patient: less than 15 minutes
--- NOTE | 2017-04-29 13:34 | Progress Note ---
- Date 04/29/17 Subjective: Bao is seen today while eating lunch in the dining room. She reports that overall, she is doing better but does complains of right sided neck pain where the IJ was placed during her acute hospitalization. She states that it has bothered her since it was placed. She denies any other complaint or concerns. She reports that her breathing seems stable and she continues to require 4L NC. She remains afebrile and denies much cough. She has been trying to use her bipap at night but states that last night she almost pulled it out of the wall because it was so loud. She was able to get some sleep after nursing adjusted her bipap. Antibiotic treatment for pneumonia including cefepime and vancomycin complete. Blood pressure slightly improved after initiation of Norvasc on 04/27/17. Lab from 04/27/17 revealed hemoglobin trending up slightly at 8.4. She denies any dizziness, lightheadedness or palpitations. Renal function stable with SCr at 1.1, though BUN remains critical at 52. Blood sugars have been variable despite home Januvia and sliding scale insulin. Appetite is stable and bowels are moving. Objective Vital signs: Temperature 97.9 F 04/29/17 08:00 Pulse Rate 69 04/29/17 08:24 Respiratory Rate 20 04/29/17 11:05 Blood Pressure 140/74 H 04/29/17 08:00 Pulse Oximetry 97 04/29/17 11:05 Height/Weight/BMI: Height 5 ft 3 in Weight 287 lb 14.779 oz Body Mass Index 50.3 Comments: sitting in dining room, eating lunch; pleasant disposition. - Constitutional Present: no acute distress, well nourished, well developed, obese, cooperative - Routine HEENT Exam Head: Present: normocephalic, atraumatic Eye: Present: PERRL. Absent: conjunctival icterus ENT: Present: mucous membranes moist - Routine Respiratory Exam Present: decreased breath sounds. Absent: rales, rhonchi, stridor, wheezes, crackles Comments: bibasilar crackles noted - Routine Cardiovascular Exam Present: RRR, S1, S2 - Routine Abdominal Exam Present: soft, normoactive bowel sounds, non distended, non tender Comments: obese - Routine Extremities Exam Present: edema (2+), non tender, pulses intact - Routine Back/Spine/Pelvis Exam Back/Spine: Present: full ROM. Absent: vertebral tenderness - Routine Musculoskeletal Exam Musculoskeletal: Present: moving extremities well - Routine Skin Exam Present: dry, warm. Absent: jaundice Comments: afebrile - Routine Neurological Exam Present: alert, oriented X3, moving all extremities, normal speech - Routine Lymphatic Exam Lymphatic: Absent: lymphedema - Routine Psychiatric Exam Present: cooperative Results - Labs CBC & Chem 7: 04/27/17 05:10 04/27/17 05:10 Assessment and Plan Assessment and Plan: Assessment Hypercapnic respiratory failure- pCO2- 75 (04/22) CAP COPD Chronic hypoxic respiratory failure - chronically on 4L O2 RED - CPAP at night Hypertension Stage III Chronic kidney disease Hyperlipidemia GERD Hypotension Neuropathy History of stroke Anemia Type II diabetes Vitamin B deficiency Morbid obesity with BMI 50.8 Prosthetic R eye Plan - 04/29/17 Overall, Bao appears to be making slow gains. Continue with therapies per Dr. Medina to improve strength and functional abilities. DM2 - Blood sugars remain variable. A1c was 5.8 on 04/27/17 indicating good control. Hyperglycemia most likely secondary to steroid effect. Will continue with home januvia as well as sliding scale insulin. Blood sugars expected to normalize to patient's baseline as prednisone is titrated down. PNA - Vancomycin complete 04/27/17 and cefepime complete 04/28/17. Patient remains afebrile. Continue to monitor closely and encourage acapella and incentive spirometry for pulmonary toileting. Continue breathing treatments. Will recheck CXR in AM. COPD - Prednisone decreased to 40 mg daily on 04/27/17. Will continue to taper down 10mg every 3 days - 30mg start 04/30/17, 20mg start 05/03/17, 10mg start 05/06. Appreciate time and expertise of Dr. Stock and CHRISTIANO Merida with regard to patient care. HTN - Norvasc 5 mg initiated daily on 04/27/17 with some improvement. Continue home Losartan 50mg daily and metoprolol 25mg BID for additional blood pressure control. If hypertension persists, consider increasing either Norvasc to 10mg daily or losartan to 100mg daily. Continue to monitor blood pressure closely. Anemia - Hemoglobin 8.4 on 04/27/17. Iron studies were on low end. B12 and folate stable. Will initiate oral iron supplementation daily. Continue bowel motivation and encourage oral liquid intake to help prevent constipation. Initiate Protonix 20mg BID for GI protection. Will check stool Hemoccult given persistently elevated BUN and anemia to evaluate for acute blood loss. CKD - SCr stable at 1.1 on 04/27/17. BUN remains elevated at 52. Continue to monitor closely. Daily weight trending up slowly. GI Prophylaxis: Protonix Resuscitation Status: Do Not Resuscitate - Time spent with patient Time with patient PN: 35 minutes - Physician Narrative Physician: Katty Hamm MD Narrative: Date: 04/29/17 Time: 1324 Hospital Course Summary Disclaimer: The visit summary below is not to be considered part of the above Progress Note. Hospital Course: 04/27/17 DM2 - BGM are uncontrolled. Will change accucheck timing to ACHS and increase SSI to high corrective regimen. Check hgb A1c. She is only on Januvia PNA - DC vanco (completed 7-day course from 04/20/17-04/27/17). Will DC cefepime on 04/28/17, which will complete a 7-day course. COPD - decrease Prednisone 40 mg to daily dosing rather than BID. HTN - uncontrolled. Add Norvasc 5 mg daily. Anemia - hgb imp to 8.4. iron studies pending. CKD - stable; cr under baseline of 1.6. DC Stanley catheter. Plan - 04/29/17 Overall, Bao appears to be making slow gains. Continue with therapies per Dr. Medina to improve strength and functional abilities. DM2 - Blood sugars remain variable. A1c was 5.8 on 04/27/17 indicating good control. Hyperglycemia most likely secondary to steroid effect. Will continue with home januvia as well as sliding scale insulin. Blood sugars expected to normalize to patient's baseline as prednisone is titrated down. PNA - Vancomycin complete 04/27/17 and cefepime complete 04/28/17. Patient remains afebrile. Continue to monitor closely and encourage acapella and incentive spirometry for pulmonary toileting. Continue breathing treatments. Will recheck CXR in AM. COPD - Prednisone decreased to 40 mg daily on 04/27/17. Will continue to taper down 10mg every 3 days - 30mg start 04/30/17, 20mg start 05/03/17, 10mg start 05/06. Appreciate time and expertise of Dr. Stock and CHRISTIANO Merida with regard to patient care. HTN - Norvasc 5 mg initiated daily on 04/27/17 with some improvement. Continue home Losartan 50mg daily and metoprolol 25mg BID for additional blood pressure control. If hypertension persists, consider increasing either Norvasc to 10mg daily or losartan to 100mg daily. Continue to monitor blood pressure closely. Anemia - Hemoglobin 8.4 on 04/27/17. Iron studies were on low end. B12 and folate stable. Will initiate oral iron supplementation daily. Continue bowel motivation and encourage oral liquid intake to help prevent constipation. Initiate Protonix 20mg BID for GI protection. Will check stool Hemoccult given persistently elevated BUN and anemia to evaluate for acute blood loss. CKD - SCr stable at 1.1 on 04/27/17. BUN remains elevated at 52. Continue to monitor closely. Daily weight trending up slowly.
[2017-04-29] MEDS: ACETAMINOPHEN 325 MG TABLET PO PRN (15:41)
[2017-04-29] MEDS: PANTOPRAZOLE 20 MG TABLET PO SCH (17:50)
[2017-04-29] MEDS: FERROUS SULFATE 324 MG TABLET PO SCH (17:50)
[2017-04-29] MEDS: SALINE FLUSH 10ml SYRINGE IVF PRN ×2 (17:51→22:43)
[2017-04-29] MEDS: APAP/CODEINE 300 MG/30 MG TABLET PO PRN (22:42)
[2017-04-29] MEDS: ASCORBIC ACID 500 MG TABLET PO SCH (22:43)
[2017-04-29] MEDS: ATORVASTATIN 40 MG TABLET PO SCH (22:43)
[2017-04-30] MEDS: ALBUTEROL/IPRATROPIUM 2.5mg-0.5mg/3ml NEB AEROSOL SCH ×4 (05:10→20:20)
[2017-04-30] MEDS: BUDESONIDE INH.SOLN 0.5mg/2ml NEB AEROSOL SCH ×2 (05:10→20:20)
[2017-04-30] MEDS: PANTOPRAZOLE 20 MG TABLET PO SCH ×2 (07:27→17:56)
[2017-04-30] MEDS: LEVOTHYROXINE 150 MCG TABLET PO SCH (07:27)
--- NOTE | 2017-04-30 08:55 | XRay Report ---
INDICATION: copd PROCEDURE: CHEST 2-VIEWS UPRIGHT (PA & LAT) Encounter: Initial COMPARISON: April 24, 2017 FINDINGS: Right IJ line remains in place. Continued obscuration of the left hemidiaphragm, some of which is due to overlapping soft tissues and cardiac silhouette although there does appear to be superimposed opacity in the lingula. Right lung is grossly clear. No pneumothorax or definite effusion. Heart size and mediastinal contours are stable with a large calcified right mediastinal mass. Pulmonary vascularity is stable. Impression: Lingular opacity could be due to atelectasis or pneumonia. .
--- NOTE | 2017-04-30 10:10 | IRU Progress Note ---
- Subjective/Serverity of Illness Date: 04/30/17 Bao was evaluated on the inpatient rehabilitation unit. She is awake alert and cooperative. According to her son, her cognition is back to her baseline. She does report dyspnea with activity and easy fatigability. Continues to demonstrate difficulty with transfers with evidence of proximal muscle weakness. With regard to her pneumonia, she is virtually asymptomatic. She remains afebrile with normal white count. She has only a rare cough and is not coughing up any sputum. Chest radiograph reviewed today and compared with initial AP view. There does not appear to be much change to me. Perhaps the left-sided infiltrate is a bit better but it would be minimal. It is certainly not worse. Brief therapy update: For occupational therapy she is requiring multiple verbal cues and has poor safety awareness. Attempts were made and instruction in showering in anticipation of her going to her apartment. However she has poor safety awareness and requires multiple cues due to cognition. For physical therapy she is not walking as well as she did a couple of days ago. She is standby assist for sit to stand transfers. Update on medical issues were actively managing and monitorin. Disuse myopathy. Transfers are requiring standby assistance. There has been improvement. Her ambulatory distance is not quite as good as it was a couple days ago due to fatigue and tiredness. 2. Community-acquired pneumonia: She is no longer on antibiotics. She is asymptomatic. Chest radiograph continues to demonstrate left lower lobe infiltrate but this may persist for some time. 3. Acute on chronic hypercapnic respiratory failure: Continues to require supplemental oxygen. 4. Morbid obesity with obesity hypoventilation syndrome. She was seen by Dr. Rowan who is recommending a BiPAP ST machine which should be a new machine. We will wait on pursuing this depending on where she will be going. 5. Significant anemia of unclear etiology with macrocytosis. Iron levels are back. She has low TIBC which implies anemia of chronic disease. 6. Hypertension: Once again her blood pressures are reviewed but extremely difficult to assess because of her morbid obesity. 7. Diabetes mellitus type 2: Sugars remain elevated around 200 or so. This morning's sugar better at 130. Exam Vital Signs: Temperature 97.7 F 04/30/17 08:00 Pulse Rate 79 04/30/17 08:00 Respiratory Rate 16 04/30/17 08:00 Blood Pressure 150/87 H 04/30/17 08:00 Pulse Oximetry 99 04/30/17 08:00 Height/Weight/BMI: Height 1.6 m Weight 129.3 kg Body Mass Index 50.3 - Constitutional Present: no acute distress, well nourished, well developed, morbidly obese - Routine HEENT Exam Head: Present: normocephalic Eye: Present: EOMI ENT: Present: mucous membranes moist - Routine Neck Exam Present: supple, full ROM - Routine Respiratory Exam Present: dyspnea, decreased breath sounds, crackles. Absent: respiratory distress, wheezes - Routine Cardiovascular Exam Present: RRR, S1, S2. Absent: murmur - Routine Abdominal Exam Present: soft, normoactive bowel sounds, non distended. Absent: tenderness - Routine Extremities Exam Present: edema - Routine Skin Exam Present: dry, warm - Routine Neurological Exam Present: alert, CN II-XII intact - Routine Psychiatric Exam Present: normal affect, cooperative, anxious. Absent: good insight, good judgment Results IRU - Labs Labs: Reviewed labs and other providers notes. IRU A/P (1) Myopathy Current visit: Yes Status: Acute Her disuse myopathy is slowly improving although she has declined over the last couple of days. (2) Acute encephalopathy Current visit: Yes Status: Resolved (3) Hypertension Qualifiers: Hypertension type: essential hypertension Qualified Code(s): I10 - Essential (primary) hypertension Current visit: Yes Status: Acute (4) Acute on chronic respiratory failure with hypercapnia Current visit: No Status: Acute Continues to require supplemental oxygen. Appreciate Dr. Rowan's input. (5) CAP (community acquired pneumonia) Qualifiers: Laterality: left Lung location: lower lobe of lung Qualified Code(s): J18.1 - Lobar pneumonia, unspecified organism Current visit: No Status: Acute I have reviewed her chest radiograph. There has been no worsening of the left lower lobe infiltrate since the admission chest radiograph. She is asymptomatic. She is now off antibiotics. (6) Obesity hypoventilation syndrome Current visit: No Status: Chronic She will require new machine at home as per pulmonology. (7) Diabetes mellitus type II, uncontrolled Qualifiers: Diabetes mellitus complication status: without complication Diabetes mellitus intermediate manager insulin use: without intermediate manager use Qualified Code(s): E11.65 - Type 2 diabetes mellitus with hyperglycemia Current visit: Yes Status: Chronic She has been on oral agents but currently is on a sliding insulin scale. No doubt her sugars are worse due to the corticosteroid use which has been required for her pulmonary status. DVT Prophylaxis: SCD's Resuscitation Status: Do Not Resuscitate - Course Hospital Course: Rell Medina MD: 04/25/17 08:19 Patient seems to be more tremulous and confused today. Hemoglobin 7.9 g percent. Getting started with therapy. 04/27/17 14:11 She is working with therapy. Able to ambulate over 70 feet with front-wheeled walker Continues to require additional oxygen Antibiotics are being tapered off. Tremulousness is improved with reduced steroid dose. Cognition deficits noted but acute encephalopathy likely resolved. 04/28/17 10:54 She is progressing with therapy and is getting stronger. Ambulate an 76 feet with front-wheeled walker. Dyspnea with activity and weakness secondary to deconditioning. Blood sugars remain elevated. 04/30/17 10:13 She had been making progress with therapy. There is been some decline over the last couple of days with PT. Requires multiple verbal cues for safety. Blood sugars remain elevated. - Interventions to Obtain Goals PT Treatment Plan: Balance/Proprioception, Functional Activities, Gait Training , Patient/Family Education, Therapeutic Exercise OT Treatment Plan: ADL (Basic Care), Balance Training, IADL, Ther. Exercise for ADL Goals Progress/Modifications: Time spent with patient and on floor reviewing data and documentin min Barriers to dismissal: Cognition, safety awareness, endurance, pulmonary status Medical decision-making: Ms. Carson has had very little improvement. Multidisciplinary team meeting this noon will help clarify anticipated improvement. Her pulmonary status is reasonably stable although has significant reduced exercise tolerance due to deconditioning as well as her pulmonary situation. She will require a BiPAP ST machine if and when she goes home. Chest radiograph reviewed today and shows continued left lower lobe infiltrate without much change. However she is a symptom medically with regard to infection and her white count is normal. Iron studies indicate anemia of chronic disease.
[2017-04-30] MEDS: ACETAMINOPHEN 325 MG TABLET PO PRN (10:16)
[2017-04-30] MEDS: ASPIRIN 325 MG TABLET PO SCH (10:16)
[2017-04-30] MEDS: SALINE FLUSH 10ml SYRINGE IV SCH ×2 (10:17→21:29)
[2017-04-30] MEDS: CLOPIDOGREL 75 MG TABLET PO SCH (10:17)
[2017-04-30] MEDS: AMLODIPINE 5 MG TABLET PO SCH (10:17)
[2017-04-30] MEDS: ASCORBIC ACID 500 MG TABLET PO SCH ×2 (10:17→21:27)
[2017-04-30] MEDS: LOSARTAN 50 MG TABLET PO SCH (10:17)
[2017-04-30] MEDS: FERROUS SULFATE 324 MG TABLET PO SCH ×2 (10:18→17:56)
[2017-04-30] MEDS: SITAGLIPTIN 100 MG TABLET PO SCH (10:18)
[2017-04-30] MEDS: PredniSONE 10 MG TABLET PO SCH (10:19)
[2017-04-30] MEDS: INSULIN ASPART 100unit/ml INJECTION SQ PRN ×3 (10:37→21:31)
--- NOTE | 2017-04-30 13:48 | IRU Team Meeting ---
IRU Team Meeting - Nursing Bladder Assistive Devices Utilized:: Absorbent Pad Bladder Management Level of Assist: Total Assistance Bladder Frequency of Accidents: No accidents Bowel Assistive Devices Utilized:: Medication Bowel Management Level of Assist: Modified Independent Bowel Frequency of Accidents: No accidents Number of Bowel Accidents: 0 Vital Signs: Vital Signs - 24 hr 04/29/17 15:34 04/29/17 16:00 04/29/17 16:14 Temperature 98.3 F Pulse Rate 74 73 Respiratory Rate 22 18 Blood Pressure 147/77 H Pulse Oximetry 95 97 04/29/17 19:23 04/29/17 22:25 04/30/17 00:00 Temperature 98.6 F Pulse Rate 70 66 Respiratory Rate 16 22 Blood Pressure 164/83 H Pulse Oximetry 97 99 04/30/17 05:11 04/30/17 07:59 04/30/17 08:00 Temperature 97.7 F Pulse Rate 75 79 Respiratory Rate 18 16 Blood Pressure 150/87 H Pulse Oximetry 96 99 04/30/17 11:00 Temperature Pulse Rate Respiratory Rate 18 Blood Pressure Pulse Oximetry 97 Current Medications: Acetaminophen (Tylenol) 650 mg PO PRN PRN PRN Reason: Pain Last Admin: 04/30/17 10:16 Dose: 650 mg Acetaminophen/Codeine Phosphate (Tylenol With Codeine #3 (300/30)) 1 tab PO Q4H PRN PRN Reason: Pain Last Admin: 04/29/17 22:42 Dose: 1 tab Albuterol/Ipratropium (Duoneb) 3 ml AEROSOL RTQID [facility] Last Admin: 04/30/17 13:22 Dose: 3 ml Amlodipine Besylate (Norvasc) 5 mg PO DAILY [facility] Last Admin: 04/30/17 10:17 Dose: 5 mg Ascorbic Acid (Vitamin C) 500 mg PO BID [facility] Last Admin: 04/30/17 10:17 Dose: 500 mg Aspirin (Asa) 325 mg PO DAILY [facility] Last Admin: 04/30/17 10:16 Dose: 325 mg Atorvastatin Calcium (Lipitor) 40 mg PO HS [facility] Last Admin: 04/29/17 22:43 Dose: 40 mg Bisacodyl (Dulcolax) 10 mg RECTALLY DAILY PRN PRN Reason: Constipation Last Admin: 04/26/17 18:27 Dose: 10 mg Budesonide (Pulmicort Inhalation) 0.5 mg AEROSOL RTBID [facility] Last Admin: 04/30/17 05:10 Dose: 0.5 mg Clopidogrel Bisulfate (Plavix) 75 mg PO DAILY [facility] Last Admin: 04/30/17 10:17 Dose: 75 mg Dextrose (D50%W) 10 ml IVP PRN PRN PRN Reason: Hypoglycemia Ferrous Sulfate (Feosol) 324 mg PO BIDWM [facility] Last Admin: 04/30/17 10:18 Dose: 324 mg Glucose (Glutose 15) 37.5 gm PO PRN PRN PRN Reason: Hypoglycemia Insulin Aspart (Novolog) 3 - 12 unit SQ SS PRN; Protocol PRN Reason: Hyperglycemia Last Admin: 04/30/17 10:37 Dose: 3 unit Levothyroxine Sodium (Synthroid) 150 mcg PO ACB [facility] Last Admin: 04/30/17 07:27 Dose: 150 mcg Losartan Potassium (Cozaar) 50 mg PO DAILY [facility] Last Admin: 04/30/17 10:17 Dose: 50 mg Magnesium Hydroxide (Mom) 30 ml PO DAILY PRN PRN Reason: Constipation Last Admin: 04/25/17 10:20 Dose: 30 ml Metoprolol Tartrate (Lopressor) 25 mg PO BIDWM [facility] Last Admin: 04/30/17 10:17 Dose: 25 mg Ondansetron HCl (Zofran) 4 mg IVP Q6H PRN PRN Reason: Nausea Pantoprazole Sodium (Protonix) 20 mg PO ACBID [facility] Last Admin: 04/30/17 07:27 Dose: 20 mg Prednisone (Deltasone) 20 mg PO [facility] Stop: 05/05/17 23:59 Prednisone (Deltasone) 10 mg PO [facility] Stop: 05/08/17 23:59 Prednisone (Deltasone) 30 mg PO [facility] Stop: 05/02/17 23:59 Last Admin: 04/30/17 10:19 Dose: 30 mg Sitagliptin Phosphate (Januvia) 50 mg PO DAILY [facility] Last Admin: 04/30/17 10:18 Dose: 50 mg Sodium Chloride (Iv Flush) 10 ml IV BID [facility] Last Admin: 04/30/17 10:17 Dose: 10 ml Sodium Chloride (Iv Flush) 10 - 80 ml IVF PRN PRN PRN Reason: Flushing Last Admin: 04/29/17 17:51 Dose: 20 ml Trolamine Salicylate (Aspercreme) 1 applic TOP QID THU Last Admin: 04/30/17 10:16 Dose: 1 applic Current Medical Issues: Recovery from pneumonia, diabetes mellitus exacerbated by corticosteroid usage, obesity hypoventilation syndrome, obstructive sleep apnea, hypoxia Comments: I certify that I personally led the interdisciplinary team meeting and agree with comments, barriers and goals indicated. Team meeting was held in the patient's room with the patient and the following family members present: Patient's son Bao endeavors to participate with therapy. She has easy fatigability however. Continues to require supplemental oxygen. She is asymptomatic from a pneumonia standpoint. Repeat chest x-ray obtained today continues to demonstrate left lower lobe infiltrate without change and certainly without worsening. Cognition issues are of concern. She does not like her IJ line but has very poor intravenous access otherwise. She has been seen by pulmonology. They do recommend BiPAP ST which would be a new machine for her upon dismissal. - Physical Therapy Bed, Chair, Wheelchair Transfer Assist: Stand By Assist/Supervision, Contact Guard Assistance Ambulation Ability: Maximal Assistance, 1 Person Assist Ambulation Distance: 59 Wheelchair Propulsion Ability: Total Assistance Wheelchair Propulsion Distance: 25 Stair Climbing Ability: Patient Unsafe/Unable Car Transfer Ability: Minimal Assistance, 1 Person Assist Comments: Patient requires multiple verbal cues for safety. She has poor safety awareness. She is however demonstrating improved endurance and balance. She seems to be pleasantly confused. She is standby assist for chair transfers and minimum assist for bed mobility. - Occupational Therapy Eating Ability: Independent Grooming Ability: Stand By Assist/Supervision Bathing Ability: Maximal Assistance, 1 Person Assist Upper Body Dressing Ability: Moderate Assistance Lower Body Dressing Ability: Minimal Assistance Tub Transfer Assist: Patient Refuses Toileting Assist: Stand By Assist/Supervision Toilet Transfer Assist: Stand By Assist/Supervision, 1 Person Assist Comments: For occupational therapy she likewise exhibits poor memory and poor ability to recall sequencing. Requires multiple verbal cues. Cognition is a significant issue. Problem-solving is impaired and results in increased assistance required. - Goals Physical Therapy Goals: 04/30/17 Goals: 1.) SBA with amb going 75 feet. 2.) Mod I with transfers Occupational Therapy Goals: OT goals 04/30/17: 1.) LB dress 08/17. 2.) UB dress . 3.) Simple meal prep w/ mod I. - Barriers to Discharge Barriers to Attaining Goals: Endurance, Comprehension, Medical Limitation ( pulmonary limitation and disuse myopathy), Other (fatigue) - Care Plan Anticipated Length of Stay (days): 7 Anticipated DC Destination: Long-Term/Facility I have led this team conference and agree with the plan. Interventions/Goals: Due to the patient's poor safety awareness and reduced cognition it has become apparent that she will not be safe to return home immediately upon dismissal from acute inpatient rehabilitation. Discussion this date was had with patient and her son. Recommendations will be reviewed by case management personnel with regard to assisted living versus skilled care upon dismissal from here. She continues to demonstrate progress and we can continue working with her and achieve additional functional improvement over the next several days with anticipation of dismissal to either assisted living versus long-term care versus skilled care middle of next week.
[2017-04-30] MEDS: SALINE FLUSH 10ml SYRINGE IVF PRN (17:56)
[2017-04-30] MEDS: ATORVASTATIN 40 MG TABLET PO SCH (21:28)
[2017-04-30] MEDS: APAP/CODEINE 300 MG/30 MG TABLET PO PRN (21:30)
[2017-05-01] MEDS: APAP/CODEINE 300 MG/30 MG TABLET PO PRN ×3 (06:14→19:24)
[2017-05-01] MEDS: LEVOTHYROXINE 150 MCG TABLET PO SCH (06:15)
[2017-05-01] MEDS: PANTOPRAZOLE 20 MG TABLET PO SCH ×2 (06:15→18:04)
[2017-05-01] MEDS: ALBUTEROL/IPRATROPIUM 2.5mg-0.5mg/3ml NEB AEROSOL SCH ×4 (08:12→20:34)
[2017-05-01] MEDS: BUDESONIDE INH.SOLN 0.5mg/2ml NEB AEROSOL SCH ×2 (08:13→20:34)
[2017-05-01] MEDS: FERROUS SULFATE 324 MG TABLET PO SCH ×2 (08:43→18:04)
[2017-05-01] MEDS: AMLODIPINE 5 MG TABLET PO SCH (08:45)
[2017-05-01] MEDS: ASCORBIC ACID 500 MG TABLET PO SCH ×2 (08:45→21:27)
[2017-05-01] MEDS: SALINE FLUSH 10ml SYRINGE IV SCH ×2 (08:46→21:29)
[2017-05-01] MEDS: LOSARTAN 50 MG TABLET PO SCH (08:46)
[2017-05-01] MEDS: ASPIRIN 325 MG TABLET PO SCH (08:46)
[2017-05-01] MEDS: SITAGLIPTIN 100 MG TABLET PO SCH (08:46)
[2017-05-01] MEDS: CLOPIDOGREL 75 MG TABLET PO SCH (08:46)
[2017-05-01] MEDS: PredniSONE 10 MG TABLET PO SCH (08:47)
--- NOTE | 2017-05-01 11:01 | IRU Progress Note ---
- Subjective/Serverity of Illness Date: 05/01/17 Ms. Carson was reevaluated on the inpatient rehabilitation unit. She continues to display reduced cognition. She has poor safety awareness. She is working with occupational therapy at the time of my evaluation. She does complain of some visual changes in terms of "floaty's." I assume she means floaters. She does not have visual field loss and she states that she has had these off and on for some time. While this could be related to a retinal problem it is more likely to be vitreous detachment at this point. Denies any bright flashes and denies any eye pain. Denies any headache. She continues to require supplemental oxygen at 4 L/m to maintain saturations in the 90s. She does have easy fatigability with therapy. She is making slow progress but ultimately it is not safe for her to return to her home. She will likely need to go to skilled care or assisted living. I discussed that with her again today. She says that she is open to that possibility and her son is looking into those options. Exam Vital Signs: Temperature 98.2 F 05/01/17 07:54 Pulse Rate 78 05/01/17 07:54 Respiratory Rate 18 05/01/17 07:54 Blood Pressure 149/85 H 05/01/17 07:54 Pulse Oximetry 98 05/01/17 07:54 Height/Weight/BMI: Height 1.6 m Weight 129.9 kg Body Mass Index 50.3 - Constitutional Present: moderate distress (has a moderate distress in terms of shortness of breath with activity. However this is not new and indeed may be getting better.) , well nourished, well developed, morbidly obese, cooperative - Routine HEENT Exam Head: Present: normocephalic Eye: Present: EOMI ENT: Present: mucous membranes moist - Routine Neck Exam Present: supple - Routine Respiratory Exam Present: dyspnea, decreased breath sounds, wheezes (few expiratory wheezes noted.) - Routine Cardiovascular Exam Present: RRR, S1, S2. Absent: murmur - Routine Abdominal Exam Present: soft, non distended. Absent: tenderness - Routine Extremities Exam Present: edema (trace to 1+ dependent edema.) - Routine Skin Exam Present: dry, warm - Routine Neurological Exam Present: alert, oriented X3 (while she is oriented strictly speaking, she does have significant short-term memory loss and reduced safety awareness.), CN II- XII intact - Routine Psychiatric Exam Present: normal affect IRU A/P (1) Myopathy Current visit: Yes Status: Acute Continues to improve with regard to myopathic weakness. Cooperative with therapy. (2) Acute encephalopathy Current visit: Yes Status: Resolved (3) Hypertension Qualifiers: Hypertension type: essential hypertension Qualified Code(s): I10 - Essential (primary) hypertension Current visit: Yes Status: Acute As noted previously, blood pressure borderline elevated but uncertain accuracy in view of her morbid obesity. (4) Acute on chronic respiratory failure with hypercapnia Current visit: No Status: Acute Continues to require 4 L/m nasal cannula. If the patient goes to a skilled unit , the skilled facility will need to obtain the BiPAP ST machine. (5) CAP (community acquired pneumonia) Qualifiers: Laterality: left Lung location: lower lobe of lung Qualified Code(s): J18.1 - Lobar pneumonia, unspecified organism Current visit: No Status: Acute Chest radiograph is unchanged. However she is asymptomatic and I think the pneumonia is not active at present. Clearing of the radiograph will take some time. (6) Obesity hypoventilation syndrome Current visit: No Status: Chronic (7) Diabetes mellitus type II, uncontrolled Qualifiers: Diabetes mellitus complication status: without complication Diabetes mellitus fci insulin use: without ferry terminal supervisor use Qualified Code(s): E11.65 - Type 2 diabetes mellitus with hyperglycemia Current visit: Yes Status: Chronic Blood sugars remain significantly elevated likely related to corticosteroid usage. DVT Prophylaxis: SCD's Resuscitation Status: Do Not Resuscitate - Course Hospital Course: Rell Medina MD: 04/25/17 08:19 Patient seems to be more tremulous and confused today. Hemoglobin 7.9 g percent. Getting started with therapy. 04/27/17 14:11 She is working with therapy. Able to ambulate over 70 feet with front-wheeled walker Continues to require additional oxygen Antibiotics are being tapered off. Tremulousness is improved with reduced steroid dose. Cognition deficits noted but acute encephalopathy likely resolved. 04/28/17 10:54 She is progressing with therapy and is getting stronger. Ambulate an 76 feet with front-wheeled walker. Dyspnea with activity and weakness secondary to deconditioning. Blood sugars remain elevated. 04/30/17 10:13 She had been making progress with therapy. There is been some decline over the last couple of days with PT. Requires multiple verbal cues for safety. Blood sugars remain elevated. 05/01/17 11:04 Sugars remain. Safety awareness is poor likely related to cognition. She is cooperative with therapy. - Interventions to Obtain Goals PT Treatment Plan: Balance/Proprioception, Functional Activities, Gait Training , Patient/Family Education, Therapeutic Exercise OT Treatment Plan: ADL (Basic Care), Balance Training, IADL, Ther. Exercise for ADL Goals Progress/Modifications: Time spent with patient and on floor reviewing data and documentin min Barriers to dismissal: Endurance, strength, cognition, pulmonary status/dyspnea Medical decision-making: I think it is safe to continue therapy at this time. She is making slow progress. Cognition is a major barrier as is her deconditioning and myopathic weakness. I spent some time today with her discussing placement. She says that she is okay with placement on a skilled unit although she would prefer to go home. I explained to her that we do not think it is safe to return home at this time but perhaps down the road things will be better and she will be stronger for that.
--- NOTE | 2017-05-01 13:42 | Progress Note ---
- Date 05/01/17 Subjective: Bao is seen today while resting in her recliner, watching her "soaps". She denies any complaint or concerns including no chest pain, increased shortness of breath, abdominal pain, nausea, vomiting or dysuria. She states that her breathing is stable and continues to utilize her bipap at night. Her appetite is stable and bowels are moving, though slowly, which she states is normal for her. CXR on 04/30/17 revealed lingular opacity due to atelectasis or pneumonia. She remains afebrile and WBC on 04/30 was stable at 6.7. Slight decrease in hemoglobin at 8.2, down from 8.4 on 04/27/17. Therapy is progressing slowly as she continues to have easily fatigability. Objective Vital signs: Temperature 98.2 F 05/01/17 07:54 Pulse Rate 72 05/01/17 08:00 Respiratory Rate 18 05/01/17 11:00 Blood Pressure 149/85 H 05/01/17 07:54 Pulse Oximetry 93 05/01/17 11:00 Rhythm: Normal Sinus Rhythm Height/Weight/BMI: Height 5 ft 3 in Weight 286 lb 6.087 oz Body Mass Index 50.3 - Constitutional Present: no acute distress, well nourished, well developed, obese, cooperative - Routine HEENT Exam Head: Present: normocephalic, atraumatic Eye: Present: PERRL. Absent: conjunctival icterus ENT: Present: mucous membranes moist - Routine Respiratory Exam Present: decreased breath sounds. Absent: wheezes Comments: course breath sounds bilaterally without wheezing or stridor; no distress; breathing easily on 4L NC. - Routine Cardiovascular Exam Present: RRR, S1, S2, murmur - Routine Abdominal Exam Present: soft, normoactive bowel sounds, non distended, non tender - Routine Extremities Exam Present: edema (2+ bilateral), non tender, pulses intact - Routine Back/Spine/Pelvis Exam Back/Spine: Present: full ROM. Absent: vertebral tenderness - Routine Musculoskeletal Exam Musculoskeletal: Present: moving extremities well - Routine Skin Exam Present: dry, warm. Absent: jaundice Comments: afebrile - Routine Neurological Exam Present: alert, moving all extremities, normal speech - Routine Lymphatic Exam Lymphatic: Absent: lymphedema - Routine Psychiatric Exam Present: cooperative Results - Labs CBC & Chem 7: 04/30/17 05:08 04/30/17 05:08 Assessment and Plan (1) Myopathy Current visit: Yes Status: Acute Assessment and Plan: Assessment Hypercapnic respiratory failure- pCO2- 75 (04/22) CAP COPD Chronic hypoxic respiratory failure - chronically on 4L O2 RED - CPAP at night Hypertension Stage III Chronic kidney disease Hyperlipidemia GERD Hypotension Neuropathy History of stroke Anemia Type II diabetes Vitamin B deficiency Morbid obesity with BMI 50.8 Prosthetic R eye Plan - 05/01/17 Overall, Bao appears to be making slow gains. Breathing is stable but she continues to have easily fatigability, limiting her progression in therapy. Continue with therapies per Dr. Medina to improve strength and functional abilities. DM2 - Blood sugars slightly improved, but remain elevated and variable. Hyperglycemia most likely secondary to steroid effect and anticipate continued improvement in BGMs as prednisone is tapered down. Continue with home januvia as well as sliding scale insulin as needed. PNA - Repeat CXR on 04/30/17 revealed lingular opacity likely due to atelectasis or pneumonia. WBC stabe at 6.7 and patient remains afebrile. Continue to monitor closely and encourage acapella and incentive spirometry for pulmonary toileting. Continue breathing treatments. COPD - Prednisone decreased to 30 mg daily on 04/30/17. Will continue to taper down 10mg every 3 days - 20mg start 05/03/17, 10mg start 05/06/16. HTN - Blood pressure fairly well controlled. Norvasc 5 mg initiated daily on with some improvement. Continue home Losartan 50mg daily and metoprolol 25mg BID for additional blood pressure control. Anemia - Hemoglobin 8.2 on 04/30/17. Continue oral iron supplementation daily. Continue bowel motivation and encourage oral liquid intake to help prevent constipation. Initiate Protonix 20mg BID for GI protection. Stool Hemoccult still pending. CKD - SCr stable at 1.0 on 04/30/17. BUN remains elevated at 38, but improved. Continue to monitor closely. GI Prophylaxis: Protonix Resuscitation Status: Do Not Resuscitate - Time spent with patient Time with patient PN: 25 minutes - Physician Narrative Physician: Katty Hamm MD Narrative: Date: 05/01/17 Time: [id number] Hospital Course Summary Disclaimer: The visit summary below is not to be considered part of the above Progress Note. Hospital Course: 04/27/17 DM2 - BGM are uncontrolled. Will change accucheck timing to ACHS and increase SSI to high corrective regimen. Check hgb A1c. She is only on Januvia PNA - DC vanco (completed 7-day course from 04/20/17-04/27/17). Will DC cefepime on 04/28/17, which will complete a 7-day course. COPD - decrease Prednisone 40 mg to daily dosing rather than BID. HTN - uncontrolled. Add Norvasc 5 mg daily. Anemia - hgb imp to 8.4. iron studies pending. CKD - stable; cr under baseline of 1.6. DC Stanley catheter. Plan - 04/29/17 Overall, Bao appears to be making slow gains. Continue with therapies per Dr. Medina to improve strength and functional abilities. DM2 - Blood sugars remain variable. A1c was 5.8 on 04/27/17 indicating good control. Hyperglycemia most likely secondary to steroid effect. Will continue with home januvia as well as sliding scale insulin. Blood sugars expected to normalize to patient's baseline as prednisone is titrated down. PNA - Vancomycin complete 04/27/17 and cefepime complete 04/28/17. Patient remains afebrile. Continue to monitor closely and encourage acapella and incentive spirometry for pulmonary toileting. Continue breathing treatments. Will recheck CXR in AM. COPD - Prednisone decreased to 40 mg daily on 04/27/17. Will continue to taper down 10mg every 3 days - 30mg start 04/30/17, 20mg start 05/03/17, 10mg start 05/06. Appreciate time and expertise of Dr. Stock and CHRISTIANO Merida with regard to patient care. HTN - Norvasc 5 mg initiated daily on 04/27/17 with some improvement. Continue home Losartan 50mg daily and metoprolol 25mg BID for additional blood pressure control. If hypertension persists, consider increasing either Norvasc to 10mg daily or losartan to 100mg daily. Continue to monitor blood pressure closely. Anemia - Hemoglobin 8.4 on 04/27/17. Iron studies were on low end. B12 and folate stable. Will initiate oral iron supplementation daily. Continue bowel motivation and encourage oral liquid intake to help prevent constipation. Initiate Protonix 20mg BID for GI protection. Will check stool Hemoccult given persistently elevated BUN and anemia to evaluate for acute blood loss. CKD - SCr stable at 1.1 on 04/27/17. BUN remains elevated at 52. Continue to monitor closely. Daily weight trending up slowly. Plan - 05/01/17 Overall, Bao appears to be making slow gains. Breathing is stable but she continues to have easily fatigability, limiting her progression in therapy. Continue with therapies per Dr. Medina to improve strength and functional abilities. DM2 - Blood sugars slightly improved, but remain elevated and variable. Hyperglycemia most likely secondary to steroid effect and anticipate continued improvement in BGMs as prednisone is tapered down. Continue with home januvia as well as sliding scale insulin as needed. PNA - Repeat CXR on 04/30/17 revealed lingular opacity likely due to atelectasis or pneumonia. WBC stabe at 6.7 and patient remains afebrile. Continue to monitor closely and encourage acapella and incentive spirometry for pulmonary toileting. Continue breathing treatments. COPD - Prednisone decreased to 30 mg daily on 04/30/17. Will continue to taper down 10mg every 3 days - 20mg start 05/03/17, 10mg start 05/06/16. HTN - Blood pressure fairly well controlled. Norvasc 5 mg initiated daily on with some improvement. Continue home Losartan 50mg daily and metoprolol 25mg BID for additional blood pressure control. Anemia - Hemoglobin 8.2 on 04/30/17. Continue oral iron supplementation daily. Continue bowel motivation and encourage oral liquid intake to help prevent constipation. Initiate Protonix 20mg BID for GI protection. Stool Hemoccult still pending. CKD - SCr stable at 1.0 on 04/30/17. BUN remains elevated at 38, but improved. Continue to monitor closely.
[2017-05-01] MEDS: INSULIN ASPART 100unit/ml INJECTION SQ PRN ×2 (18:05→21:26)
[2017-05-01] MEDS: ATORVASTATIN 40 MG TABLET PO SCH (21:27)
[2017-05-01] MEDS: SALINE FLUSH 10ml SYRINGE IVF PRN (21:29)
--- NOTE | 2017-05-01 22:17 | Pulmonology Progress Note ---
Subjective Principal diagnosis: Respiratory Failure Interval history: Pt working with PT, states her breathing is doing ok, no new issues. Exam Vital signs: Temperature 98.3 F 05/01/17 16:00 Pulse Rate 92 05/01/17 16:00 Respiratory Rate 16 05/01/17 20:35 Blood Pressure 154/70 H 05/01/17 16:00 Pulse Oximetry 97 05/01/17 20:35 - Constitutional no acute distress, morbidly obese - Routine HEENT Exam Head: Present: normocephalic, atraumatic Eye: Present: EOMI, PERRL ENT: Present: mucous membranes moist - Routine Neck Exam Present: supple, full ROM - Routine Respiratory Exam Present: decreased breath sounds - Routine Cardiovascular Exam Present: RRR, S1, S2, no murmur - Routine Abdominal Exam Present: soft, normoactive bowel sounds - Routine Back/Spine/Pelvis Exam Back/Spine: Present: full ROM - Routine Skin Exam Present: intact, dry - Routine Neurological Exam Present: alert, oriented X3, CN II-XII intact - Routine Psychiatric Exam Present: normal affect, normal thought process Assessment and Plan - Assessment and Plan 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 Pt will need Bipap ST at dismissal for treatment of her Chronic Hypercapnic Respiratory failure as she has failed Cpap therapy. Recent pna, s/p cefepime on a/a QID and tolerating. Afebrile and no leukocytosis noted. - Time Spent With Patient Total time spent is greater than 50% in coordination of care (as documented) at patient's floor/unit and/or counseling patient: less than 15 minutes
[2017-05-02] MEDS: PANTOPRAZOLE 20 MG TABLET PO SCH ×2 (06:35→18:08)
[2017-05-02] MEDS: LEVOTHYROXINE 150 MCG TABLET PO SCH (06:35)
[2017-05-02] MEDS: APAP/CODEINE 300 MG/30 MG TABLET PO PRN ×2 (06:35→21:38)
[2017-05-02] MEDS: BUDESONIDE INH.SOLN 0.5mg/2ml NEB AEROSOL SCH ×2 (07:10→20:03)
[2017-05-02] MEDS: ALBUTEROL/IPRATROPIUM 2.5mg-0.5mg/3ml NEB AEROSOL SCH ×4 (07:10→20:03)
[2017-05-02] MEDS: FERROUS SULFATE 324 MG TABLET PO SCH ×2 (08:44→18:08)
[2017-05-02] MEDS: AMLODIPINE 5 MG TABLET PO SCH (08:45)
[2017-05-02] MEDS: PredniSONE 10 MG TABLET PO SCH (08:45)
[2017-05-02] MEDS: ASCORBIC ACID 500 MG TABLET PO SCH ×2 (08:45→21:36)
[2017-05-02] MEDS: SITAGLIPTIN 100 MG TABLET PO SCH (08:46)
[2017-05-02] MEDS: CLOPIDOGREL 75 MG TABLET PO SCH (08:46)
[2017-05-02] MEDS: ASPIRIN 325 MG TABLET PO SCH (08:46)
[2017-05-02] MEDS: LOSARTAN 50 MG TABLET PO SCH (08:46)
[2017-05-02] MEDS: SALINE FLUSH 10ml SYRINGE IV SCH ×2 (08:48→21:37)
[2017-05-02] MEDS: INSULIN ASPART 100unit/ml INJECTION SQ PRN ×3 (11:24→21:36)
[2017-05-02] MEDS: ATORVASTATIN 40 MG TABLET PO SCH (21:36)
[2017-05-02] MEDS: SALINE FLUSH 10ml SYRINGE IVF PRN (21:37)
[2017-05-03] MEDS: LEVOTHYROXINE 150 MCG TABLET PO SCH (06:58)
[2017-05-03] MEDS: APAP/CODEINE 300 MG/30 MG TABLET PO PRN ×2 (06:58→19:34)
[2017-05-03] MEDS: PANTOPRAZOLE 20 MG TABLET PO SCH ×2 (06:58→17:34)
[2017-05-03] MEDS: BUDESONIDE INH.SOLN 0.5mg/2ml NEB AEROSOL SCH ×2 (07:27→19:49)
[2017-05-03] MEDS: ALBUTEROL/IPRATROPIUM 2.5mg-0.5mg/3ml NEB AEROSOL SCH ×4 (07:27→19:48)
[2017-05-03] MEDS: SALINE FLUSH 10ml SYRINGE IV SCH ×3 (08:52→22:00)
[2017-05-03] MEDS: ASCORBIC ACID 500 MG TABLET PO SCH ×3 (08:52→22:00)
[2017-05-03] MEDS: FERROUS SULFATE 324 MG TABLET PO SCH ×2 (08:53→17:43)
[2017-05-03] MEDS: LOSARTAN 50 MG TABLET PO SCH (08:53)
[2017-05-03] MEDS: PredniSONE 20 MG TABLET PO SCH (08:53)
[2017-05-03] MEDS: SITAGLIPTIN 100 MG TABLET PO SCH (08:53)
[2017-05-03] MEDS: AMLODIPINE 5 MG TABLET PO SCH (08:53)
[2017-05-03] MEDS: CLOPIDOGREL 75 MG TABLET PO SCH (08:53)
[2017-05-03] MEDS: ASPIRIN 325 MG TABLET PO SCH (08:54)
[2017-05-03] MEDS: INSULIN ASPART 100unit/ml INJECTION SQ PRN ×3 (11:17→22:24)
[2017-05-03] MEDS: SALINE FLUSH 10ml SYRINGE IVF PRN (19:34)
[2017-05-03] MEDS: ATORVASTATIN 40 MG TABLET PO SCH ×2 (19:37→22:00)
[2017-05-04] MEDS: LEVOTHYROXINE 150 MCG TABLET PO SCH (05:44)
[2017-05-04] MEDS: PANTOPRAZOLE 20 MG TABLET PO SCH ×2 (05:44→17:14)
[2017-05-04] MEDS: ALBUTEROL/IPRATROPIUM 2.5mg-0.5mg/3ml NEB AEROSOL SCH ×4 (06:47→20:06)
[2017-05-04] MEDS: LOSARTAN 50 MG TABLET PO SCH (08:23)
[2017-05-04] MEDS: SITAGLIPTIN 100 MG TABLET PO SCH (08:23)
[2017-05-04] MEDS: ASPIRIN 325 MG TABLET PO SCH (08:23)
[2017-05-04] MEDS: PredniSONE 20 MG TABLET PO SCH (08:24)
[2017-05-04] MEDS: AMLODIPINE 5 MG TABLET PO SCH (08:24)
[2017-05-04] MEDS: ASCORBIC ACID 500 MG TABLET PO SCH ×2 (08:24→20:33)
[2017-05-04] MEDS: CLOPIDOGREL 75 MG TABLET PO SCH (08:24)
[2017-05-04] MEDS: FERROUS SULFATE 324 MG TABLET PO SCH ×2 (08:24→17:14)
[2017-05-04] MEDS: SALINE FLUSH 10ml SYRINGE IVF PRN (08:25)
[2017-05-04] MEDS: SALINE FLUSH 10ml SYRINGE IV SCH ×2 (08:25→20:33)
--- NOTE | 2017-05-04 10:50 | IRU Progress Note ---
- Subjective/Serverity of Illness Date: 05/04/17 Ms. Carson was evaluated in her room with her son present. She states that she would really like to go home. We have reassessed this. She will have home health assisting her with bathing. Son is near her as well and will be checking on her daily. I have discussed with the therapists as well. She does not appear to be much of a fall risk at present. Main issue is that of cognition and if she can be reminded to take her medications and if she can have safety with bathing via home health then we feel as though it is legitimate to send her to her home. She is delighted about that and her son states that she is doing better now than she has previously. Brief therapy update: The patient continues to require multiple verbal cues for sequencing. Cognition is a major impairment and barrier to progress. Nevertheless she is making progress. For occupational therapy she requires moderate assistance for upper body dressing and minimal assistance for lower body dressing. Toilet assistance with moderate assistance. Physical therapy but/ chair/realtor transfers are at standby assist level. She does have some easy fatigability and dyspnea. Update on medical issues were actively managing and monitorin. Disuse myopathy. Strength is improving. She is able to ambulate with front- wheeled walker. According to her son he feels as though she is doing better now than she did for some time at home prior to admission. 2. Community-acquired pneumonia: Continues to be asymptomatic. No longer on antibiotics. Recent chest x-ray reviewed. 3. Acute on chronic hypercapnic respiratory failure: Continues to require 4 L of supplemental oxygen with activity. 4. Morbid obesity with obesity hypoventilation syndrome. I discussed with Dr. Rowan's catering administrative assistant Vianey who indicates that she will check into the issue of the BiPAP ST machine. We will work with case management in terms of obtaining this for her home. Family has chosen to stay with Dr. Faye in [place] for pulmonology. 5. Significant anemia of unclear etiology with macrocytosis. Hemoglobin is stable. Iron studies are consistent with anemia of chronic disease. 6. Hypertension: Blood pressures appear to be improving. 7. Diabetes mellitus type 2: Continues to run sugars between 200 and 300 at times. She is on a sliding insulin scale. Exam Vital Signs: Temperature 98.8 F 05/04/17 09:28 Pulse Rate 82 05/04/17 09:28 Respiratory Rate 14 05/04/17 09:28 Blood Pressure 135/66 05/04/17 09:28 Pulse Oximetry 99 05/04/17 09:28 Height/Weight/BMI: Height 1.6 m Weight 127.1 kg Body Mass Index 50.3 - Constitutional Present: no acute distress, well nourished, well developed, morbidly obese, cooperative (although cognition limits some progress.) - Routine HEENT Exam Head: Present: normocephalic, atraumatic, cushingoid faces Eye: Present: EOMI ENT: Present: mucous membranes moist - Routine Neck Exam Present: supple - Routine Respiratory Exam Present: decreased breath sounds, crackles (crackles noted right mid and lower lung sierra.), diminished air movement. Absent: respiratory distress, rhonchi, wheezes - Routine Cardiovascular Exam Present: RRR, S1, S2. Absent: murmur - Routine Abdominal Exam Present: soft, normoactive bowel sounds, non distended. Absent: tenderness - Routine Extremities Exam Present: edema (seems to have trace edema.). Absent: cyanosis - Routine Skin Exam Present: dry, warm - Routine Neurological Exam Present: alert, oriented X3 (today she knew my name. Seems to be fairly well oriented although concerns are noted regarding medication taking etc.), CN II- XII intact - Routine Psychiatric Exam Present: normal affect, cooperative Results IRU - Labs Labs: Reviewed lab as well as other providers notes. IRU A/P (1) Myopathy Current visit: Yes Status: Acute Her disuse myopathy is improving based on therapists assessment of transfers and ambulation. She is able to relate with a front-wheeled walker. She is moving now better than she has in the past according to her son. (2) Acute encephalopathy Current visit: Yes Status: Resolved (3) Hypertension Qualifiers: Hypertension type: essential hypertension Qualified Code(s): I10 - Essential (primary) hypertension Current visit: Yes Status: Acute Blood pressure control is improved. (4) Acute on chronic respiratory failure with hypercapnia Current visit: No Status: Acute Continues to require supplemental oxygen at 4 L/m. Have discussed with Vianey and they will look into the BiPAP ST machine for home. (5) CAP (community acquired pneumonia) Qualifiers: Laterality: left Lung location: lower lobe of lung Qualified Code(s): J18.1 - Lobar pneumonia, unspecified organism Current visit: No Status: Resolved She is off antibiotics. Her white count is up at 12,000 today. However no evidence of acute infection. She is afebrile. (6) Obesity hypoventilation syndrome Current visit: No Status: Chronic (7) Diabetes mellitus type II, uncontrolled Qualifiers: Diabetes mellitus complication status: without complication Diabetes mellitus manager terminal insulin use: without manager terminal use Qualified Code(s): E11.65 - Type 2 diabetes mellitus with hyperglycemia Current visit: Yes Status: Chronic Blood sugars remain elevated. She is on a sliding scale. No doubt her sugar elevation is partially related to the corticosteroid usage. DVT Prophylaxis: SCD's Resuscitation Status: Do Not Resuscitate - Course Hospital Course: Rell Medina MD: 04/25/17 08:19 Patient seems to be more tremulous and confused today. Hemoglobin 7.9 g percent. Getting started with therapy. 04/27/17 14:11 She is working with therapy. Able to ambulate over 70 feet with front-wheeled walker Continues to require additional oxygen Antibiotics are being tapered off. Tremulousness is improved with reduced steroid dose. Cognition deficits noted but acute encephalopathy likely resolved. 04/28/17 10:54 She is progressing with therapy and is getting stronger. Ambulate an 76 feet with front-wheeled walker. Dyspnea with activity and weakness secondary to deconditioning. Blood sugars remain elevated. 04/30/17 10:13 She had been making progress with therapy. There is been some decline over the last couple of days with PT. Requires multiple verbal cues for safety. Blood sugars remain elevated. 05/01/17 11:04 Sugars remain. Safety awareness is poor likely related to cognition. She is cooperative with therapy. 05/04/17 10:59 Continues to make progress with therapy. Cognition is a barrier. Have discussed safety issues with therapists and son inpatient and feel it is safe to send her home in a couple of days. - Interventions to Obtain Goals PT Treatment Plan: Balance/Proprioception, Functional Activities, Gait Training , Patient/Family Education, Therapeutic Exercise OT Treatment Plan: ADL (Basic Care), Balance Training, IADL, Ther. Exercise for ADL Goals Progress/Modifications: Time spent with patient and on floor reviewing data and documentin min Barriers to dismissal: Cognition, endurance, medical issues (hypoxemia/pulmonary ) Medical decision-making: Have discussed with several individuals including case management, therapists, patient and her son. She will have assistance with bathing. Does not appear to be much of a fall risk and her activity level is actually more than was at home. Therefore we will plan to send her home in a couple days after she is stabilized. White count noted to be elevated. However no evidence of active infection. We will monitor this carefully and repeat the white count prior to dismissal.
[2017-05-04] MEDS: INSULIN ASPART 100unit/ml INJECTION SQ PRN ×3 (11:19→21:14)
--- NOTE | 2017-05-04 11:20 | Pulmonology Progress Note ---
Subjective Principal diagnosis: Respiratory Failure Interval history: Pt working with PT, states her breathing is doing ok, no new issues. Exam Vital signs: Temperature 98.8 F 05/04/17 09:28 Pulse Rate 82 05/04/17 09:28 Respiratory Rate 14 05/04/17 09:28 Blood Pressure 135/66 05/04/17 09:28 Pulse Oximetry 99 05/04/17 09:28 - Constitutional no acute distress, morbidly obese - Routine HEENT Exam Head: Present: normocephalic, atraumatic Eye: Present: EOMI, PERRL ENT: Present: mucous membranes moist - Routine Neck Exam Present: supple, full ROM - Routine Respiratory Exam Present: decreased breath sounds - Routine Cardiovascular Exam Present: RRR, S1, S2, no murmur - Routine Abdominal Exam Present: soft, normoactive bowel sounds - Routine Extremities Exam Present: edema, non tender, full ROM - Routine Back/Spine/Pelvis Exam Back/Spine: Present: full ROM - Routine Skin Exam Present: intact, dry - Routine Neurological Exam Present: alert, oriented X3, CN II-XII intact - Routine Psychiatric Exam Present: normal affect, normal thought process Assessment and Plan - Assessment and Plan 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 Pt will need Bipap ST at dismissal for treatment of her Chronic Hypercapnic Respiratory failure as she has failed Cpap therapy. Recent pna, s/p cefepime on a/a QID, pulmicort BID and tolerating. Afebrile and no leukocytosis noted. Will need to f/u with her regulatory affairs internship Dr. Faye in 2-3 weeks. - Time Spent With Patient Total time spent is greater than 50% in coordination of care (as documented) at patient's floor/unit and/or counseling patient: less than 15 minutes
[2017-05-04] MEDS: BUDESONIDE INH.SOLN 0.5mg/2ml NEB AEROSOL SCH ×2 (13:52→20:06)
[2017-05-04] MEDS: ATORVASTATIN 40 MG TABLET PO SCH (20:33)
[2017-05-04] MEDS: APAP/CODEINE 300 MG/30 MG TABLET PO PRN (21:13)
[2017-05-05] MEDS: APAP/CODEINE 300 MG/30 MG TABLET PO PRN ×2 (06:08→21:57)
[2017-05-05] MEDS: PANTOPRAZOLE 20 MG TABLET PO SCH ×2 (06:08→17:56)
[2017-05-05] MEDS: LEVOTHYROXINE 150 MCG TABLET PO SCH (06:09)
[2017-05-05] MEDS: BUDESONIDE INH.SOLN 0.5mg/2ml NEB AEROSOL SCH ×2 (07:02→20:37)
[2017-05-05] MEDS: ALBUTEROL/IPRATROPIUM 2.5mg-0.5mg/3ml NEB AEROSOL SCH ×4 (07:03→20:37)
[2017-05-05] MEDS: SITAGLIPTIN 100 MG TABLET PO SCH (08:28)
[2017-05-05] MEDS: ASCORBIC ACID 500 MG TABLET PO SCH ×2 (08:29→21:57)
[2017-05-05] MEDS: CLOPIDOGREL 75 MG TABLET PO SCH (08:29)
[2017-05-05] MEDS: FERROUS SULFATE 324 MG TABLET PO SCH ×2 (08:29→17:56)
[2017-05-05] MEDS: LOSARTAN 50 MG TABLET PO SCH (08:29)
[2017-05-05] MEDS: AMLODIPINE 5 MG TABLET PO SCH (08:29)
[2017-05-05] MEDS: PredniSONE 20 MG TABLET PO SCH (08:30)
[2017-05-05] MEDS: SALINE FLUSH 10ml SYRINGE IVF PRN ×2 (08:30→22:00)
[2017-05-05] MEDS: SALINE FLUSH 10ml SYRINGE IV SCH ×2 (08:30→21:59)
[2017-05-05] MEDS: ASPIRIN 325 MG TABLET PO SCH (08:32)
--- NOTE | 2017-05-05 10:12 | IRU Progress Note ---
- Subjective/Serverity of Illness Date: 05/05/17 Ms. Carson was evaluated on the inpatient rehabilitation unit. She is improving remarkably. She is ambulate further distances and able to tolerate this reasonably well. She does have dyspnea and easy fatigability but overall she is improving. She denies a cough. There is no fever. [place] elevated white count noted yesterday but there is no clinical correlation with regard to fever or evidence of infection. She is on corticosteroids. She is anxious to go home. Her son feels as though it is safe for her to go home and I would agree. Brief therapy update: She is able to ambulate 95 feet with front-wheeled walker and tolerates it reasonably well. For occupational therapy she requires multiple verbal cues for dressing etc. but overall is stable. Most of her activities able to be performed with standby assistance to supervision level. Update on medical issues were actively managing and monitorin. Disuse myopathy. Strength continues to improve with transfers. Primarily requires verbal cues. 2. Community-acquired pneumonia: Clinically this is resolved. Minimal leukocytosis at 12,000 but she is on corticosteroids. 3. Acute on chronic hypercapnic respiratory failure: This is a chronic issue at this point and she requires 4 L of oxygen. 4. Morbid obesity with obesity hypoventilation syndrome. Potentially made to obtain a new BiPAP ST machine for home use. 5. Significant anemia of unclear etiology with macrocytosis. Hemoglobin is stable. Iron studies are consistent with anemia of chronic disease. 6. Hypertension: Review blood pressure shows improvement and 120-135 systolic. 7. Diabetes mellitus type 2: Her blood sugars in general are too high but most recently showed a value of 118. Exam Vital Signs: Temperature 98.1 F 05/05/17 08:00 Pulse Rate 87 05/05/17 08:00 Respiratory Rate 18 05/05/17 08:00 Blood Pressure 132/69 05/05/17 08:00 Pulse Oximetry 94 05/05/17 08:00 Height/Weight/BMI: Height 1.6 m Weight 126.2 kg Body Mass Index 50.3 - Constitutional Present: no acute distress, well nourished, well developed, morbidly obese - Routine HEENT Exam Head: Present: normocephalic, atraumatic, cushingoid faces Eye: Present: EOMI ENT: Present: mucous membranes moist - Routine Neck Exam Present: supple - Routine Respiratory Exam Present: dyspnea, decreased breath sounds. Absent: respiratory distress, rhonchi, wheezes, crackles - Routine Cardiovascular Exam Present: RRR, S1, S2. Absent: murmur - Routine Abdominal Exam Present: soft, normoactive bowel sounds, non distended. Absent: tenderness - Routine Extremities Exam Present: no edema, normal capillary refill - Routine Skin Exam Present: dry, warm, ecchymosis - Routine Neurological Exam Present: alert, oriented X3, CN II-XII intact - Routine Psychiatric Exam Present: normal affect, cooperative Results IRU - Labs Labs: I reviewed other providers notes, vital signs, laboratory results etc. IRU A/P (1) Myopathy Current visit: Yes Status: Acute Her disuse myopathy has improved. Transfers are improved. Requires verbal cues related to cognition predominantly. (2) Acute encephalopathy Current visit: Yes Status: Resolved (3) Hypertension Qualifiers: Hypertension type: essential hypertension Qualified Code(s): I10 - Essential (primary) hypertension Current visit: Yes Status: Acute Her blood pressures appear to be improved. (4) Acute on chronic respiratory failure with hypercapnia Current visit: No Status: Acute She requires chronic oxygen supplementation. Lungs sound relatively clear with diminished breath sounds. (5) Obesity hypoventilation syndrome Current visit: No Status: Chronic Home BiPAP ST machine will be sought. (6) Diabetes mellitus type II, uncontrolled Qualifiers: Diabetes mellitus complication status: without complication Diabetes mellitus prison insulin use: without prison use Qualified Code(s): E11.65 - Type 2 diabetes mellitus with hyperglycemia Current visit: Yes Status: Chronic DVT Prophylaxis: SCD's Resuscitation Status: Do Not Resuscitate - Course Hospital Course: Rell Medina MD: 04/25/17 08:19 Patient seems to be more tremulous and confused today. Hemoglobin 7.9 g percent. Getting started with therapy. 04/27/17 14:11 She is working with therapy. Able to ambulate over 70 feet with front-wheeled walker Continues to require additional oxygen Antibiotics are being tapered off. Tremulousness is improved with reduced steroid dose. Cognition deficits noted but acute encephalopathy likely resolved. 04/28/17 10:54 She is progressing with therapy and is getting stronger. Ambulate an 76 feet with front-wheeled walker. Dyspnea with activity and weakness secondary to deconditioning. Blood sugars remain elevated. 04/30/17 10:13 She had been making progress with therapy. There is been some decline over the last couple of days with PT. Requires multiple verbal cues for safety. Blood sugars remain elevated. 05/01/17 11:04 Sugars remain. Safety awareness is poor likely related to cognition. She is cooperative with therapy. 05/04/17 10:59 Continues to make progress with therapy. Cognition is a barrier. Have discussed safety issues with therapists and son inpatient and feel it is safe to send her home in a couple of days. 05/05/17 10:12 Continues to make progress. Safety issues are improved. Due to reduced cognition she requires multiple verbal cues but she will have someone with her while bathing. We will ask home health to supervise medication delivery as well. She requires a front-wheeled walker. In addition leaving home is a taxing effort in view of her severe respiratory failure and hypoxemia with morbid obesity and deconditioning. - Interventions to Obtain Goals PT Treatment Plan: Balance/Proprioception, Functional Activities, Gait Training , Patient/Family Education, Therapeutic Exercise OT Treatment Plan: ADL (Basic Care), Balance Training, IADL, Ther. Exercise for ADL Goals Progress/Modifications: Time spent with patient and on floor reviewing data and documentin min Barriers to dismissal: dyspnea, endurance Medical decision-making: Patient is medically stable for dismissal tomorrow. Arrangements will be made with regard to the home BiPAP ST machine. She does have a mild leukocytosis of doubtful relevant. There is no evidence of active infection at present. She remains afebrile and her lungs are stable. She does require chronic supplemental oxygen. She does require multiple verbal cues for various activities but home health will be able to assist her with bathing. Her son will be able to be with her at least once daily.
--- NOTE | 2017-05-05 11:20 | Discharge Summary ---
Discharge Information Date of admission: 04/24/17 15:05 Anticipated date of discharge: 05/06/17 Attending Physician: Rell Medina MD Consults: 04/24/17 16:07 Physician Consult [CONS] Routine Consulting Provider: Romero Sepulveda Reason For Exam: medical management Ordering Provider has Notified General Service Technician: Yes 04/28/17 14:14 Physician Consult [CONS] Routine Consulting Provider: Cas Rowan Reason For Exam: obesity hypoventilation syndrome Ordering Provider has Notified General Service Technician: Yes - Discharge Diagnosis (1) Myopathy Status: Acute (2) Hypertension Status: Acute (3) Acute on chronic respiratory failure with hypercapnia Status: Acute (4) Obesity hypoventilation syndrome Status: Chronic (5) Diabetes mellitus type II, uncontrolled Status: Chronic 1. Disuse myopathy 2. Community-acquired pneumonia 3. Acute on chronic hypercapnic respiratory failure 4. Obesity hypoventilation syndrome 5. Obstructive sleep apnea 6. Anemia of chronic disease 7. Hypertension 8. Diabetes mellitus type 2 not controlled exacerbated by corticosteroid usage - Laboratory Labs: 05/04/17 03:51 05/04/17 03:51 History of Present Illness HPI: Ms. Carson is an 87-year-old female from [place], [place]. Initially she had developed respiratory symptoms and was admitted to [facility] by Dr. Abi Lopez on 04/14/2017 for community-acquired pneumonia. She worsened and was transferred to [facility] on 04/22/2017. She was admitted to the hospitalist service. She was cared for in the intensive care unit and treated for left lower lobe community-acquired pneumonia. She received intravenous antibiotics, inhaled bronchodilators and injectable corticosteroids. She did exhibit acute on chronic hypercapnic respiratory failure. She was also seen by Dr. Rowan, supervisor computer operations who assisted with her care. She was quite debilitated due to her prolonged hospitalization. She exhibited proximal muscle weakness consistent with a disuse myopathy and was unable to care for herself at home. She was felt to be stable for transfer to acute inpatient rehabilitation which was accomplished on 04/24/2017. Hospital Course This is a general summary of the patient's hospital course. For more details refer to the complete medical record. Upon admission to inpatient rehabilitation the patient appeared to be somewhat confused. Answers to her questions were not terribly clear. In addition she was quite tremulous and debilitated. As the doses of the corticosteroids were reduced, her tremulousness improved. She was seen for a multidisciplinary approach involving occupational therapy and physical therapy along with 24 rehabilitation nursing to monitor her blood pressures and blood sugars. She was placed on a sliding insulin scale and medically managed by the hospitalist service. In addition, Dr. Rowan did see her on inpatient rehabilitation and recommended Trilogy home ventilator for home use. She currently has a BiPAP machine but he recommends a Trilogy for her obesity hypoventilation syndrome. She continued on intravenous antibiotics for a time while on rehabilitation. These were tapered off. Follow-up chest radiograph on April 30 demonstrated a lingular infiltrate but upon my review of the films appear to be stable to improved compared to the previous films. Her blood sugars remained elevated and she was placed on a sliding insulin scale. Her hemoglobin was monitored because of her chronic anemia. Most recent hemoglobin is 9.7 g percent on May 04, 2017. She was seen by occupational therapy. Functional ability is as follows: For eating she was independent upon admission and dismissal. Grooming was performed at standby assist upon admission and dismissal. Bathing ability improved from moderate assistance to minimum assistance. Upper body dressing was performed with modified independent level initially and independent to standby assist upon dismissal. Lower body dressing was performed with minimal assistance initially and standby assistance subsequently. Toileting assistance and toilet transfer assistance for both standby assistance upon admission and dismissal. Bed/chair/wheelchair transfers for occupational therapy were performed with contact-guard assistance upon admission and dismissal. She was also seen by physical therapy. Bed/chair/wheelchair transfers were performed with contact-guard assistance initially and ultimately standby assistance. Toileting assistance and toilet transfer assistance were with standby level upon admission and dismissal. Car transfers were not able to be performed initially but ultimately able to be performed with standby assistance. Ambulating ability was maximum assistance at 76 feet initially and ultimately 95 feet with a front-wheeled walker with standby assistance. She will require the use of a front-wheeled walker indefinitely. She was unsafe to climb stairs initially and ultimately refused stairclimbing training. Initially we were recommending that she go to a 24-hour supervised level of care. This was due to poor cognition and requiring multiple verbal cues. However , as we reviewed the situation and discussed with the patient and her son, we believe it is safe for her to return to her home apartment where she has more familiar surroundings. She will receive home health physical therapy and occupational therapy as well as [facility] to monitor her pulmonary status , medication administration and to assist with bathing. We believe that she is a low fall risk at the present time. She will follow-up with her primary care doctor Dr. Abi Del Valle as well as her supervisor computer operations . Arrangements are made for a home Trilogy ventilator machine. Hospital course: 04/27/17 DM2 - BGM are uncontrolled. Will change accucheck timing to ACHS and increase SSI to high corrective regimen. Check hgb A1c. She is only on Januvia PNA - DC vanco (completed 7-day course from 04/20/17-04/27/17). Will DC cefepime on 04/28/17, which will complete a 7-day course. COPD - decrease Prednisone 40 mg to daily dosing rather than BID. HTN - uncontrolled. Add Norvasc 5 mg daily. Anemia - hgb imp to 8.4. iron studies pending. CKD - stable; cr under baseline of 1.6. DC Stanley catheter. Plan - 04/29/17 Overall, Bao appears to be making slow gains. Continue with therapies per Dr. Medina to improve strength and functional abilities. DM2 - Blood sugars remain variable. A1c was 5.8 on 04/27/17 indicating good control. Hyperglycemia most likely secondary to steroid effect. Will continue with home januvia as well as sliding scale insulin. Blood sugars expected to normalize to patient's baseline as prednisone is titrated down. PNA - Vancomycin complete 04/27/17 and cefepime complete 04/28/17. Patient remains afebrile. Continue to monitor closely and encourage acapella and incentive spirometry for pulmonary toileting. Continue breathing treatments. Will recheck CXR in AM. COPD - Prednisone decreased to 40 mg daily on 04/27/17. Will continue to taper down 10mg every 3 days - 30mg start 04/30/17, 20mg start 05/03/17, 10mg start 05/06. Appreciate time and expertise of Dr. Stock and CHRISTIANO Merida with regard to patient care. HTN - Norvasc 5 mg initiated daily on 04/27/17 with some improvement. Continue home Losartan 50mg daily and metoprolol 25mg BID for additional blood pressure control. If hypertension persists, consider increasing either Norvasc to 10mg daily or losartan to 100mg daily. Continue to monitor blood pressure closely. Anemia - Hemoglobin 8.4 on 04/27/17. Iron studies were on low end. B12 and folate stable. Will initiate oral iron supplementation daily. Continue bowel motivation and encourage oral liquid intake to help prevent constipation. Initiate Protonix 20mg BID for GI protection. Will check stool Hemoccult given persistently elevated BUN and anemia to evaluate for acute blood loss. CKD - SCr stable at 1.1 on 04/27/17. BUN remains elevated at 52. Continue to monitor closely. Daily weight trending up slowly. Plan - 05/01/17 Overall, Bao appears to be making slow gains. Breathing is stable but she continues to have easily fatigability, limiting her progression in therapy. Continue with therapies per Dr. Medina to improve strength and functional abilities. DM2 - Blood sugars slightly improved, but remain elevated and variable. Hyperglycemia most likely secondary to steroid effect and anticipate continued improvement in BGMs as prednisone is tapered down. Continue with home januvia as well as sliding scale insulin as needed. PNA - Repeat CXR on 04/30/17 revealed lingular opacity likely due to atelectasis or pneumonia. WBC stabe at 6.7 and patient remains afebrile. Continue to monitor closely and encourage acapella and incentive spirometry for pulmonary toileting. Continue breathing treatments. COPD - Prednisone decreased to 30 mg daily on 04/30/17. Will continue to taper down 10mg every 3 days - 20mg start 05/03/17, 10mg start 05/06/16. HTN - Blood pressure fairly well controlled. Norvasc 5 mg initiated daily on with some improvement. Continue home Losartan 50mg daily and metoprolol 25mg BID for additional blood pressure control. Anemia - Hemoglobin 8.2 on 04/30/17. Continue oral iron supplementation daily. Continue bowel motivation and encourage oral liquid intake to help prevent constipation. Initiate Protonix 20mg BID for GI protection. Stool Hemoccult still pending. CKD - SCr stable at 1.0 on 04/30/17. BUN remains elevated at 38, but improved. Continue to monitor closely. Time spent with patient: greater than 35 minutes Resuscitation Status: Do Not Resuscitate Discharge Plan - Med Rec/Dispo Referrals/Follow Up: Abi Lopez MD [Other] (Follow-up with PCP 1-2 wks after discharge from Long Term stay. .) Ramiro Faye MD [Physician] - (Follow-up in 2-3 weeks. ) Prescriptions: New Amlodipine [Norvasc] 5 mg PO DAILY #30 tab Ferrous Sulfate [Feosol] 324 mg PO BIDWM #60 tab PredniSONE [Deltasone] 10 mg PO WB #3 tab Umeclidinium Brm/Vilanterol Tr [Anoro Ellipta 62.5-25 Mcg INH] 1 each IH DAILY #1 blst.w.dev Ascorbic Acid [Vitamin C] 500 mg PO BID tab Continue Oxybutynin Chloride 5 mg PO DAILY Aspirin 1 tab PO DAILY Clopidogrel [Plavix] 1 tab PO DAILY Losartan [Cozaar] 50 mg PO DAILY Pantoprazole Sodium [Protonix] 40 mg PO DAILY Levothyroxine Sodium [Levo-T] 150 mcg PO DAILY Sitagliptin Phosphate [Januvia] 50 mg PO DAILY Acetaminophen [Tylenol] 650 mg PO PRN PRN tab PRN Reason: Pain Metoprolol Tartrate [Lopressor] 25 mg PO BIDWM tab Trolamine Salicylate 10% Cream [Aspercreme] 1 applicatio TOP QID tube APAP/Codeine 300/30 (#3) [Tylenol with Codeine #3 (300/30)] 1 tab PO Q4H PRN #30 tab PRN Reason: Pain Atorvastatin [Lipitor] 1 tab PO HS Venlafaxine HCl [Venlafaxine HCl ER] 1 cap PO BID Discontinued Albuterol/Ipratropium [Duoneb] 1 unit AEROSOL QID Albuterol/Ipratropium [Duoneb] 3 ml AEROSOL RTQID each Bisacodyl Supp [Dulcolax] 10 mg RECTALLY DAILY PRN suppositor PRN Reason: Constipation Cefepime [Maxipime] 1 gm IV Q8H ml Dextrose 50% Pfs [D50%W] 10 ml IVP PRN PRN syringe PRN Reason: Hypoglycemia Glucose Oral Gel 40% [Glutose 15] 37.5 gm PO PRN PRN tube PRN Reason: Hypoglycemia Milk of Magnesia [Mom] 30 ml PO DAILY PRN udc PRN Reason: Constipation predniSONE [Prednisone] 40 mg PO BIDWM 1 Days #1 tab Saline Flush [IV Flush] 10 - 80 ml IVF PRN PRN syringe PRN Reason: Flushing Vancomycin [Vancocin] 1,000 mg IV Q24H vial Budesonide Inhalation [Pulmicort Inhalation] 0.5 mg AEROSOL RTBID vial Insulin Regular, Human [NovoLIN R] 2 - 8 unit SQ SS PRN vial PRN Reason: Hyperglycemia No Action Niacin 500 mg PO BID Gabapentin [Neurontin] 600 mg PO TID guaiFENesin [Mucinex] 600 mg PO BID Magnesium Oxide [Magox 400] 400 mg PO BID - Disposition [facility]
--- NOTE | 2017-05-05 11:29 | Letter to Referring Physician ---
Dear Dr. Lopez, This is a brief note to bring you up-to-date on the status of Carie Carson and her stay on the acute inpatient rehabilitation unit at [facility]. As you are likely aware, this patient was admitted to the acute care hospital at [facility] on 04/22/17 for respiratory failure and community- acquired pneumonia. The patient was stabilized while on the acute level and admitted to inpatient rehabilitation unit at [facility] on April. While on inpatient rehabilitation, this patient was seen by occupational therapy and physical therapy and improved overall in their functional ability. We also monitored and managed the patient's diabetes and respiratory failure while on Acute Rehab. Please see a copy of the history and physical examination as well as discharge summary enclosed with this letter for further details. She was also seen by Dr. Rowan, caramel candy maker who recommended changing her home BiPAP machine from BiPAP to a Trilogy home ventilator. This was arranged and she was instructed in its use prior to dismissal (along with her son). The patient will return to her home apartment in [place] with home health assistance for PT, OT and care home to monitor her medication administration and respiratory status. She has no longer on antibiotics. Thank you for allowing us to be involved in this nice patient's care. Please contact me directly should you have any questions regarding their stay on the inpatient rehabilitation unit. Sincerely, Rell Medina M.D.
[2017-05-05] MEDS: INSULIN ASPART 100unit/ml INJECTION SQ PRN ×2 (17:58→21:57)
[2017-05-05] MEDS: ATORVASTATIN 40 MG TABLET PO SCH (21:57)
[2017-05-06] MEDS: PANTOPRAZOLE 20 MG TABLET PO SCH (06:24)
[2017-05-06] MEDS: LEVOTHYROXINE 150 MCG TABLET PO SCH (06:24)
[2017-05-06] MEDS ORDERED: PredniSONE 10 MG TABLET PO SCH (08:00)
[2017-05-06] MEDS ORDERED: NEOMYCIN/POLYMYXIN/BACITRACIN OINT PACKET TP ONE (08:15)
[2017-05-06] MEDS: FERROUS SULFATE 324 MG TABLET PO SCH (08:32)
[2017-05-06] MEDS: LOSARTAN 50 MG TABLET PO SCH (08:32)
[2017-05-06] MEDS: SITAGLIPTIN 100 MG TABLET PO SCH (08:32)
[2017-05-06] MEDS: ASPIRIN 325 MG TABLET PO SCH (08:33)
[2017-05-06] MEDS: CLOPIDOGREL 75 MG TABLET PO SCH (08:33)
[2017-05-06] MEDS: AMLODIPINE 5 MG TABLET PO SCH (08:33)
[2017-05-06] MEDS: ASCORBIC ACID 500 MG TABLET PO SCH (08:33)
[2017-05-06] MEDS: SALINE FLUSH 10ml SYRINGE IV SCH (08:34)
[2017-05-06 09:09] VITALS: BP 158/81; PULSE 71; TEMP 98.2
[2017-05-06] MEDS: ALBUTEROL/IPRATROPIUM 2.5mg-0.5mg/3ml NEB AEROSOL SCH (09:35)
[2017-05-06] MEDS: BUDESONIDE INH.SOLN 0.5mg/2ml NEB AEROSOL SCH (09:35)
[2017-05-06 09:52] VITALS: RESP 22; O2SAT 94
== END 2017-05-06 10:40 | disposition home health service (06) | DRG 91 ==
PROVIDERS: ADMIT Internal Medicine; ATTEND Internal Medicine